=== PATIENT | female | born 1955 | race American Indian/Alaskan Native ===

== ENCOUNTER 2019-02-21 17:22 | Inpatient (IN) | payer OTHER ==
[2019-02-21] MEDS ORDERED: NACL 0.9% 1000 ML 1,000 ML ONE (17:51)
[2019-02-21] MEDS ORDERED: NACL 0.9% 1000 ML 1,000 ML IV ONE ×3 (17:56→19:45)
--- NOTE | 2019-02-21 18:02 | Emergency Department Report ---
ED General Adult HPI - General Chief complaint: Weakness Stated complaint: LOW SUGAR LEVEL/DISORIENTATED Time Seen by Provider: 02/21/19 17:46 Source: patient, family Mode of arrival: Wheelchair Limitations: Physical Limitation - History of Present Illness Initial comments: Mrs. Hansen is a 63 years old female [facility] Patient brought to the emergency room by her daughter. Patient is complaining of generalized weakness started this morning. Patient has history of diabetes, hypertension and back pain with bilateral lower extremity weakness, patient is wheelchair patient. Patient daughter stated that her mom is not eating or drinking well. She stated that she was taking Lortab for a long period of time and her primary care physician weaned off Lortab being 4 months ago. Patient daughter stated that last time she took Lortab was 2 weeks ago. Patient is drowsy but able to answer questions and follow command. Patient is moving all her extremities. Stroke scale was negative. Patient found to have a blood pressure of 84/32, heart rate 125. Sepsis protocol initiated immediately. Patient is given 2 L of normal saline and started on Zosyn. - Related Data Allergies Allergy/AdvReac Type Severity Reaction Status Date / Time Sulfa (Sulfonamide Allergy Unknown Verified 02/21/19 17:25 Antibiotics) ED Review of Systems ROS: Stated complaint: LOW SUGAR LEVEL/DISORIENTATED Other details as noted in HPI Comment: All other systems reviewed and negative Constitutional: denies: chills, fever Respiratory: denies: cough, orthopnea, shortness of breath, SOB with exertion, SOB at rest, wheezing Cardiovascular: denies: chest pain, palpitations Gastrointestinal: denies: abdominal pain, nausea, vomiting, diarrhea, constipation, hematemesis, melena, hematochezia Genitourinary: denies: urgency, dysuria, frequency, hematuria, discharge Musculoskeletal: denies: back pain Neurological: weakness (generalized). denies: headache, numbness, paresthesias, confusion, abnormal gait ED Physical Exam - General Limitations: Physical Limitation General appearance: obtunded - Head Head exam: Present: atraumatic, normocephalic, normal inspection - Eye Eye exam: Present: normal appearance - ENT ENT exam: Present: mucous membranes dry - Neck Neck exam: Present: normal inspection, full ROM. Absent: tenderness, meningismus, lymphadenopathy, thyromegaly - Respiratory Respiratory exam: Present: normal lung sounds bilaterally - Cardiovascular Cardiovascular Exam: Present: regular rate, tachycardia - GI/Abdominal GI/Abdominal exam: Present: soft, normal bowel sounds. Absent: distended, tenderness, guarding, rebound, rigid, organomegaly, mass, bruit, pulsatile mass - Extremities Exam Extremities exam: Present: normal inspection, full ROM, normal capillary refill. Absent: pedal edema, calf tenderness - Back Exam Back exam: Present: normal inspection, full ROM. Absent: CVA tenderness (R), CVA tenderness (L) - Neurological Exam Neurological exam: Present: alert, oriented X3, CN II-XII intact - Psychiatric Psychiatric exam: Present: normal mood - Skin Skin exam: Present: warm, intact, normal color ED Course Vital Signs 02/21/19 02/21/19 02/21/19 17:30 17:45 18:01 Temperature Pulse Rate 117 H 121 H Respiratory 22 14 Rate Blood Pressure 87/54 87/54 104/62 O2 Sat by Pulse 99 98 Oximetry 02/21/19 02/21/19 02/21/19 18:09 18:15 18:31 Temperature 98 F Pulse Rate 116 H 111 H 109 H Respiratory 16 12 11 L Rate Blood Pressure 104/62 87/54 87/54 O2 Sat by Pulse 100 98 93 Oximetry 02/21/19 02/21/19 02/21/19 18:45 19:05 19:15 Temperature Pulse Rate 101 H 96 H Respiratory 12 11 L 9 L Rate Blood Pressure 87/54 87/54 87/54 O2 Sat by Pulse 93 Oximetry 02/21/19 19:31 Temperature Pulse Rate Respiratory 13 Rate Blood Pressure 87/54 O2 Sat by Pulse 95 Oximetry ED Medical Decision Making - Lab Data Result diagrams: 02/21/19 18:02 02/21/19 18:02 - EKG Data -: EKG Interpreted by Ak EKG shows normal: sinus rhythm Rate: tachycardia - EKG Data Interpretation: no acute changes - Radiology Data Radiology results: report reviewed Chest x-ray is unremarkable. - Medical Decision Making Mrs. Hansen is a 63 years old female [facility] Patient brought to the emergency room by her daughter. Patient is complaining of generalized weakness started this morning. Patient has history of diabetes, hypertension and back pain with bilateral lower extremity weakness, patient is wheelchair patient. Patient daughter stated that her mom is not eating or drinking well. She stated that she was taking Lortab for a long period of time and her primary care phys keanu weaned off Lortab being 4 months ago. Patient daughter stated that last time she took Lortab was 2 weeks ago. Patient is drowsy but able to answer questions and follow command. Patient is moving all her extremities. Stroke scale was negative. Patient found to have a blood pressure of 84/32, heart rate 125. Sepsis protocol initiated immediately. Patient is given 2 L of normal saline and started on Zosyn. Labs reviewed that show lactic acid of 2.7. Creatinine of 3.4 and sodium of 1 25. Urine is positive for UTI. This x-ray is unremarkable. Patient received 3 L of normal saline. I discussed the patient is Dr. Wu, he agreed to admit the patient to medical service for further management. Critical Care Time: Yes Critical care time in (mins) excluding proc time.: 30 Critical care attestation.: If time is entered above; I have spent that time in minutes in the direct care of this critically ill patient, excluding procedure time. ED Disposition Clinical Impression: Sepsis, UTI (urinary tract infection), Hyponatremia, Acute renal failure Disposition: OP ADMIT IP TO THIS HOSP Is pt being admited?: Yes Condition: Stable Referrals: ASTON FAUSTIN MD [Primary Care Provider] - 3-5 Days
--- NOTE | 2019-02-21 18:34 | XRay Report ---
CHEST 1 VIEW INDICATION / CLINICAL INFORMATION: sepsis. COMPARISON: None available. FINDINGS: SUPPORT DEVICES: None. HEART / MEDIASTINUM: No significant abnormality. LUNGS / PLEURA: A few scattered linear opacities are present toward the lung bases. No pulmonary cons olidation. No appreciable pleural fluid. No pneumothorax. ADDITIONAL FINDINGS: No significant additional findings. IMPRESSION: 1. Scattered areas of platelike atelectasis likely related to low lung volumes. No parenchymal consol idation. Signer Name: Jerzy Bowden MD Signed: 02/21/2019 6:30 PM Workstation Name: [id number]
[2019-02-21 18:36] LABS: Hematocrit 30.6 % (30.3-42.9); Hemoglobin 10.6 gm/dl (10.1-14.3); Mean Corpuscular HGB Conc 35 % (30-34); Mean Corpuscular Volume 98 fl (79-97); Platelet Count 290 K/mm3 (140-440); Red Blood Count 3.12 M/mm3 (3.65-5.03)
[2019-02-21 18:55] LABS: Alanine Aminotransferase 28 units/L (7-56); Albumin 2.6 g/dL (3.9-5); BUN/Creatinine Ratio 14; Blood Urea Nitrogen 48 mg/dL (7-17); Calcium 8.1 mg/dL (8.4-10.2); Hemolysis Index 19
[2019-02-21] MEDS ORDERED: ZOSYN/NS 3.375GM/50ML 3.375 GM/50 ML BAG IV ONE (19:00)
[2019-02-21 19:25] LABS: Bacteria,Urine 4+ /HPF (Negative); Bilirubin,Urine NEG (Negative); Blood,Urine LG (Negative); Color,Urine Yellow (Yellow); Urobilinogen,Urine < 2.0 mg/dL (<2.0)
--- NOTE | 2019-02-21 19:28 | Cat Scan Report ---
CT head/brain wo con INDICATION: Altered mental status. TECHNIQUE: Routine CT head without contrast. All CT scans at this location are performed using CT dos e reduction for ALARA by means of automated exposure control. Multiplanar reformats are included. COMPARISON: None. FINDINGS: BRAIN / INTRACRANIAL CONTENTS: No acute hemorrhage, mass effect, midline shift, or hydrocephalus. No appreciable acute large territorial or lacunar infarct. There is atherosclerosis of the carotid sipho ns. ORBITS: No significant abnormality of visualized orbits. SINUSES / MASTOIDS: No significant abnormality of visualized sinuses and mastoid air cells. ADDITIONAL FINDINGS: None. IMPRESSION: 1. No acute intracranial abnormality. Signer Name: Jerzy Bowden MD Signed: 02/21/2019 7:24 PM Workstation Name: [id number]
[2019-02-21 19:34] LABS: Protein,Urine >500 mg/dL (Negative); WBC,Urine > 182.0 /HPF (0.0-6.0)
[2019-02-21 20:00] LABS: Band Neutrophils # (Manual) 1.8 K/mm3; Basophils % (Manual) 0 % (0.0-1.8); Total Cells Counted 100
[2019-02-21 20:01] LABS: Burr Cells 3+; Platelet Estimate Consistent w Auto
[2019-02-21] MEDS ORDERED: REGLAN IV PRN (20:15)
[2019-02-21] MEDS ORDERED: SODIUM CHLORIDE FLUSH SYRINGE 10 ML IV PRN (20:15)
[2019-02-21] MEDS ORDERED: D50W (25GM) Syringe IV PRN (20:15)
[2019-02-21] MEDS ORDERED: TYLENOL PO PRN (20:15)
[2019-02-21] MEDS ORDERED: PROVENTIL IH PRN (20:15)
[2019-02-21] MEDS ORDERED: ZOFRAN IV PRN (20:15)
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
[2019-02-21] MEDS: HEPARIN SUB-Q SCH (22:55)
[2019-02-21] MEDS: COLACE PO SCH (22:55)
[2019-02-21] MEDS: SODIUM CHLORIDE FLUSH SYRINGE 10 ML IV SCH (22:56)
[2019-02-21] MEDS: HumuLIN R SUB-Q SCH (22:56)
[2019-02-22 03:38] LABS: Hematocrit 29.7 % (30.3-42.9); Hemoglobin 10.4 gm/dl (10.1-14.3); Mean Corpuscular HGB Conc 35 % (30-34); Mean Corpuscular Volume 97 fl (79-97); Platelet Count 260 K/mm3 (140-440); Red Blood Count 3.06 M/mm3 (3.65-5.03)
[2019-02-22] MEDS: NACL 0.9% 1000 ML 1,000 ML IV SCH ×2 (03:40→14:58)
[2019-02-22 04:34] LABS: Calcium 7.3 mg/dL (8.4-10.2)
[2019-02-22 06:36] LABS: Band Neutrophils # (Manual) 0.2 K/mm3; Eosinophils % (Manual) 0 % (0.0-4.3); Total Cells Counted 100
[2019-02-22 06:37] LABS: Anisocytosis 1+; Burr Cells 3+; Platelet Estimate Consistent w Auto; Poikilocytosis 3+
--- NOTE | 2019-02-22 07:39 | Progress Note ---
Assessment and Plan Assessment and plan: Patient is a 63 yo woman with a history of DM type 2, hypertension, wheel bound due to chronic back pains and tobacco dependency who presents to [facility] with general weakness, poor intake. Pt has been taking Lortab for her chronic back pain for a long time and is currently being weaned. Per daughter pt's last dose of Lortab was taken two weeks ago. * pCXR Impression 1. Scattered areas of platelike atelectasis likely related to low volumes, no parenchymal consolidation * CT head without Impression 1. No acute intracranial abnormality Sepsis UTI: treat with abx, follow cultures Hyponatremia, hyposmolatity: treat with IVF, monitor bmp closely ARF, ATN+vasomotor nephrology: treat with IVF, Nephrology consult Bilateral atelectasis: treat incentive spirometry Severe malnutrition: consult Mop Maker Funtional quadriplegia: consult Physical Therapy Pressure ulcer, stage 2, poa: consult wound care DM type 2: ssi, ADA Tobacco dependency: counseled on cessation Hypertension: low salt History Interval history: Patient was seen and examined. Follow-up on current diagnosis. No overnight events reported to me. Patient denies any chest pain, shortness breath, nausea/vomiting or severe headaches. Imaging, nursing note, chart, labs and old chart reviewed. Discussed with patient. Hospitalist Physical - Physical exam Narrative exam: Gen: thin frail, chronically ill appearing, bmi 17.7 NAD, Awake, Alert, Orientated x 2 HEENT: NCAT, EOMI, PERRL, OP Clear Neck: supple, no adenopathy, no thyromegaly, no JVD CVS/Heart: RRR, normal S1S2, pulses present bilaterally Chest/Lungs: CTA B, Symmetrical chest expansion, good air entry bilaterally GI/Abdomen: soft, NTND, good bowel sounds, no guarding or rebound /Bladder: no suprapubic tenderness, no CVA or paraspinal tenderness Extermity/Skin: pressure ulcer, poa MSK: FROM x 4 Neuro: CN 2-12 grossly intact, no new focal deficits Psych: calm - Constitutional Vitals: Temp Pulse Resp BP Pulse Ox 98.0 F 101 H 20 120/72 99 02/22/19 05:04 02/22/19 05:04 02/22/19 05:04 02/22/19 05:04 02/22/19 05:04 Results - Labs CBC & Chem 7: 02/22/19 03:12 02/22/19 09:11 Labs: Laboratory Last Values WBC 8.7 K/mm3 (4.5-11.0) 02/22/19 03:12 RBC 3.06 M/mm3 (3.65-5.03) L 02/22/19 03:12 Hgb 10.4 gm/dl (10.1-14.3) 02/22/19 03:12 Hct 29.7 % (30.3-42.9) L 02/22/19 03:12 MCV 97 fl (79-97) 02/22/19 03:12 MCH 34 pg (28-32) H 02/22/19 03:12 MCHC 35 % (30-34) H 02/22/19 03:12 RDW 14.0 % (13.2-15.2) 02/22/19 03:12 Plt Count 260 K/mm3 (140-440) 02/22/19 03:12 Add Manual Diff Complete 02/22/19 03:12 Total Counted 100 02/22/19 03:12 Seg Neutrophils % Leather Piece Inspector 02/22/19 03:12 Seg Neuts % (Manual) 93.0 % (40.0-70.0) H 02/22/19 03:12 2.0 % 02/22/19 03:12 2.0 % (13.4-35.0) L 02/22/19 03:12 Reactive Lymphs % (Man) 0 % 02/22/19 03:12 2.0 % (0.0-7.3) 02/22/19 03:12 0 % (0.0-4.3) 02/22/19 03:12 1.0 % (0.0-1.8) 02/22/19 03:12 0 % 02/22/19 03:12 0 % 02/22/19 03:12 0 % 02/22/19 03:12 0 % 02/22/19 03:12 Nucleated RBC % Not Reportable 02/22/19 03:12 Seg Neutrophils # Man 8.1 K/mm3 (1.8-7.7) H 02/22/19 03:12 Band Neutrophils # 0.2 K/mm3 02/22/19 03:12 0.2 K/mm3 (1.2-5.4) L 02/22/19 03:12 Abs React Lymphs (Man) 0.0 K/mm3 02/22/19 03:12 0.2 K/mm3 (0.0-0.8) 02/22/19 03:12 0.0 K/mm3 (0.0-0.4) 02/22/19 03:12 0.1 K/mm3 (0.0-0.1) 02/22/19 03:12 0.0 K/mm3 02/22/19 03:12 0.0 K/mm3 02/22/19 03:12 0.0 K/mm3 02/22/19 03:12 Blast Cells # 0.0 K/mm3 02/22/19 03:12 WBC Morphology Not Reportable 02/22/19 03:12 Hypersegmented Neuts Not Reportable 02/22/19 03:12 Hyposegmented Neuts Not Reportable 02/22/19 03:12 Hypogranular Neuts Not Reportable 02/22/19 03:12 Not Reportable 02/22/19 03:12 Not Reportable 02/22/19 03:12 Not Reportable 02/22/19 03:12 Not Reportable 02/22/19 03:12 Not Reportable 02/22/19 03:12 Not Reportable 02/22/19 03:12 Consistent w auto 02/22/19 03:12 Not Reportable 02/22/19 03:12 Plt Clumps, EDTA Not Reportable 02/22/19 03:12 Not Reportable 02/22/19 03:12 Not Reportable 02/22/19 03:12 Not Reportable 02/22/19 03:12 Plt Morphology Comment Not Reportable 02/22/19 03:12 RBC Morphology Not Reportable 02/22/19 03:12 Dimorphic RBCs Not Reportable 02/22/19 03:12 Not Reportable 02/22/19 03:12 Not Reportable 02/22/19 03:12 3+ 02/22/19 03:12 1+ 02/22/19 03:12 Not Reportable 02/22/19 03:12 Not Reportable 02/22/19 03:12 Not Reportable 02/22/19 03:12 Not Reportable 02/22/19 03:12 Not Reportable 02/22/19 03:12 Not Reportable 02/22/19 03:12 Not Reportable 02/22/19 03:12 Not Reportable 02/22/19 03:12 Not Reportable 02/22/19 03:12 Not Reportable 02/22/19 03:12 Not Reportable 02/22/19 03:12 3+ 02/22/19 03:12 Not Reportable 02/22/19 03:12 Not Reportable 02/22/19 03:12 Not Reportable 02/22/19 03:12 Acanthocytes (Spur) Not Reportable 02/22/19 03:12 Rouleaux Not Reportable 02/22/19 03:12 Not Reportable 02/22/19 03:12 Not Reportable 02/22/19 03:12 Not Reportable 02/22/19 03:12 Not Reportable 02/22/19 03:12 Hem Pathologist Commnt No 02/22/19 03:12 Sodium 130 mmol/L (137-145) L 02/22/19 03:12 Potassium 4.1 mmol/L (3.6-5.0) 02/22/19 03:12 Chloride 98.0 mmol/L (98-107) 02/22/19 03:12 Carbon Dioxide 14 mmol/L (22-30) L 02/22/19 03:12 22 mmol/L 02/22/19 03:12 BUN 48 mg/dL (7-17) H 02/22/19 03:12 3.1 mg/dL (0.7-1.2) H 02/22/19 03:12 Estimated GFR 18 ml/min 02/22/19 03:12 15 % 02/22/19 03:12 Glucose 119 mg/dL (65-100) H 02/22/19 03:12 POC Glucose 103 (70-105) 02/21/19 22:58 5.4 % (4-6) 02/21/19 20:23 Lactic Acid 3.50 mmol/L (0.7-2.0) H* 02/21/19 19:45 Calcium 7.3 mg/dL (8.4-10.2) L 02/22/19 03:12 0.40 mg/dL (0.1-1.2) 02/21/19 18:02 AST 33 units/L (5-40) 02/21/19 18:02 ALT 28 units/L (7-56) 02/21/19 18:02 111 units/L (35-129) 02/21/19 18:02 < 0.010 ng/mL (0.00-0.029) 02/21/19 18:02 6.4 g/dL (6.3-8.2) 02/21/19 18:02 2.6 g/dL (3.9-5) L 02/21/19 18:02 0.7 % 02/21/19 18:02 Yellow (Yellow) 02/21/19 18:54 Turbid (Clear) 02/21/19 18:54 5.0 (5.0-7.0) 02/21/19 18:54 Ur Specific [place] 1.010 (1.003-1.030) 02/21/19 18:54 >500 mg/dL (Negative) 02/21/19 18:54 Neg mg/dL (Negative) 02/21/19 18:54 Neg mg/dL (Negative) 02/21/19 18:54 Lg (Negative) 02/21/19 18:54 Neg (Negative) 02/21/19 18:54 Neg (Negative) 02/21/19 18:54 < 2.0 mg/dL (<2.0) 02/21/19 18:54 Ur Leukocyte Esterase Mod (Negative) 02/21/19 18:54 > 182.0 /HPF (0.0-6.0) H 02/21/19 18:54 54.0 /HPF (0.0-6.0) 02/21/19 18:54 4+ /HPF (Negative) 02/21/19 18:54 3+ /HPF 02/21/19 18:54 3+ /HPF 02/21/19 18:54 Active Medications - Current Medications Current Medications: Generic Name Dose Route Start Last Admin Trade Name Freq PRN Reason Stop Dose Admin Acetaminophen 650 mg 02/21/19 20:15 Tylenol PO Q4H PRN Pain MILD(1-3)/Fever >100.5/AARON Albuterol 2.5 mg 02/21/19 20:15 Proventil IH Q3HRT PRN Shortness Of Breath Dextrose 50 ml 02/21/19 20:15 D50w (25gm) Syringe IV PRN PRN Hypoglycemia Docusate Sodium 100 mg 02/21/19 22:00 02/21/19 22:55 Colace PO 100 mg BID MATT Administration Heparin Sodium (Porcine) 5,000 unit 02/21/19 22:00 02/21/19 22:55 Heparin SUB-Q 5,000 unit Q12HR MATT Administration Sodium Chloride 1,000 mls @ 100 mls/hr 02/21/19 21:00 02/22/19 03:40 Nacl 0.9% 1000 Ml IV 100 mls/hr DIRECT MATT Administration Levofloxacin/Dextrose 500 mg in 100 mls @ 100 mls/hr 02/22/19 10:00 Levaquin 500mg/100ml IV Q24HR [facility] Protocol Insulin Human Regular 0 units 02/21/19 22:00 02/21/19 22:56 Humulin R SUB-Q Not Given ACHS MATT Protocol Metoclopramide HCl 10 mg 02/21/19 20:15 Reglan IV Q6H PRN Nausea And Vomiting Ondansetron HCl 4 mg 02/21/19 20:15 Zofran IV Q8H PRN Nausea And Vomiting Oxycodone/Acetaminophen 1 tab 02/21/19 20:15 Percocet 5/325 PO Q6H PRN Pain, Moderate (4-6) Sodium Chloride 10 ml 02/21/19 22:00 02/21/19 22:56 Sodium Chloride Flush Syringe 10 Ml IV 10 ml BID MATT Administration Sodium Chloride 10 ml 02/21/19 20:15 Sodium Chloride Flush Syringe 10 Ml IV PRN PRN LINE FLUSH
--- NOTE | 2019-02-22 08:46 | Consultation ---
History of Present Illness - Reason for Consult Consult date: 02/22/19 acute renal failure, hyponatremia - History of Present Illness the patient is a 63 year old female with HTN and DM, poor historian, history obtained from chart, she was brought by her daughter yesterday due to worsening weakness, she was found to have have urosepsis and was started on IVF and abx, she was also found to have KILLIAN and hyponatremia and renal consult was requested Past History Past Medical History: diabetes, hypertension, other (wheelchair-bound secondary to chronic back pain) Past Surgical History: No surgical history Social history: smoking (smokes 3-4 cigarettes per day) Family history: no significant family history Medications and Allergies Allergies Allergy/AdvReac Type Severity Reaction Status Date / Time Sulfa (Sulfonamide Allergy Unknown Verified 02/21/19 17:25 Antibiotics) Active Meds: Active Medications Acetaminophen (Tylenol) 650 mg PO Q4H PRN PRN Reason: Pain MILD(1-3)/Fever >100.5/AARON Albuterol (Proventil) 2.5 mg IH Q3HRT PRN PRN Reason: Shortness Of Breath Dextrose (D50w (25gm) Syringe) 50 ml IV PRN PRN PRN Reason: Hypoglycemia Docusate Sodium (Colace) 100 mg PO BID MATT Last Admin: 02/21/19 22:55 Dose: 100 mg Documented by: Heparin Sodium (Porcine) (Heparin) 5,000 unit SUB-Q Q12HR MATT Last Admin: 02/21/19 22:55 Dose: 5,000 unit Documented by: Sodium Chloride (Nacl 0.9% 1000 Ml) 1,000 mls @ 50 mls/hr IV DIRECT MATT Last Admin: 02/22/19 03:40 Dose: 100 mls/hr Documented by: Levofloxacin/Dextrose (Levaquin 500mg/100ml) 500 mg in 100 mls @ 100 mls/hr IV Q24HR MATT; Protocol Insulin Human Regular (Humulin R) 0 units SUB-Q ACHS MATT; Protocol Last Admin: 02/21/19 22:56 Dose: Not Given Documented by: Metoclopramide HCl (Reglan) 10 mg IV Q6H PRN PRN Reason: Nausea And Vomiting Ondansetron HCl (Zofran) 4 mg IV Q8H PRN PRN Reason: Nausea And Vomiting Oxycodone/Acetaminophen (Percocet 5/325) 1 tab PO Q6H PRN PRN Reason: Pain, Moderate (4-6) Sodium Chloride (Sodium Chloride Flush Syringe 10 Ml) 10 ml IV BID MATT Last Admin: 02/21/19 22:56 Dose: 10 ml Documented by: Sodium Chloride (Sodium Chloride Flush Syringe 10 Ml) 10 ml IV PRN PRN PRN Reason: LINE FLUSH Review of Systems ROS unobtainable: due to mental status Exam - Vital Signs Vital signs: Vital Signs BP 87/54 02/21/19 17:30 - General Appearance General appearance: well-developed, well-nourished EENT: ATNC, PERRL, mucous membranes moist Neck: Present: neck supple Respiratory: Clear to Ascultation Heart: regular, S1S2 Gastrointestinal: Present: normoactive bowel sounds Integumentary: no rash, warm and dry Neurologic: no asterixis Musculoskeletal: Present: other (no edema in BLE) Psychiatric: cooperative Results - Lab Results 02/22/19 03:12 02/22/19 03:12 Most recent lab results Calcium 7.3 mg/dL (8.4-10.2) L 02/22/19 03:12 Assessment and Plan acute kidney injury, likely prerenal azotemia hyponatremia, likely hypovolemic urosepsis HTN DM - will decrease NS to 50 cc/h to prevent overcorrection of hyponatremia - urine lytes, protein, osm, eos ordered - renal US ordered - strict I&O - daily weight - renally dose meds - avoid nephrotoxins Cade Palma MD [phone]
[2019-02-22] MEDS ORDERED: LEVAQUIN 500MG/100ML 500 MG/100 ML BAG IV SCH (10:00)
[2019-02-22] MEDS: HumuLIN R SUB-Q SCH ×2 (10:07→17:14)
[2019-02-22] MEDS: COLACE PO SCH ×2 (11:10→22:09)
[2019-02-22] MEDS: HEPARIN SUB-Q SCH ×2 (11:13→22:09)
[2019-02-22] MEDS: LEVAQUIN 500MG/100ML 500 MG/100 ML BAG IV SCH (11:19)
[2019-02-22] MEDS: SODIUM CHLORIDE FLUSH SYRINGE 10 ML IV SCH ×2 (11:29→22:10)
--- NOTE | 2019-02-22 12:30 | Ultrasound Report ---
ULTRASOUND RENAL INDICATION / CLINICAL INFORMATION: renal failure. COMPARISON: None available. FINDINGS: RIGHT KIDNEY: Length = 11.4 cm. [normal > 9 cm] - Parenchymal Thickness = 1.6 cm. [normal > 1.5 cm] - Echogenicity: Increased - Hydronephrosis: None. - Cyst or mass: No significant abnormality. - Stones: None seen. LEFT KIDNEY: Length = 11.3 cm. [normal > 9 cm] - Parenchymal Thickness = 1.6 cm. [normal > 1.5 cm] - Echogenicity: Increased - Hydronephrosis: None. - Cyst or mass: A 2.7 x 2.0 x 3.1 cm cyst with single internal septation is identified in the superio r left kidney. A 2.5 x 2.4 cm exophytic simple cyst is also identified in the superior left kidney. - Stones: None seen. URINARY BLADDER: There is moderate to large debris layering posteriorly in the bladder. Bladder wall thickness appears normal. FREE FLUID: None. ADDITIONAL FINDINGS: None. IMPRESSION: Echogenic kidneys consistent with nonspecific renal parenchymal disease. Left renal cysts as described. Moderate to large debris in the bladder. Correlate for cystitis. Signer Name: Marty Hernandez Jr, MD Signed: 02/22/2019 12:26 PM Workstation Name: [id number]
[2019-02-22] MEDS: MORPHINE IV PRN (14:53)
--- NOTE | 2019-02-22 15:39 | XRay Report ---
ABDOMEN 1 VIEW(S) INDICATION / CLINICAL INFORMATION: Nausea and vomiting. COMPARISON: None available. FINDINGS: TUBES / LINES: None. BOWEL GAS PATTERN: No significant abnormality. FREE AIR / EXTRALUMINAL GAS: None seen. ADDITIONAL FINDINGS: Posterior fusion of the lower lumbar spine is noted. IMPRESSION: No significant abnormality. Signer Name: Marty Hernandez Jr, MD Signed: 02/22/2019 3:34 PM Workstation Name: [id number]
[2019-02-23 05:17] LABS: Hematocrit 28.6 % (30.3-42.9); Hemoglobin 9.9 gm/dl (10.1-14.3); Mean Corpuscular HGB Conc 35 % (30-34); Mean Corpuscular Volume 97 fl (79-97); Platelet Count 226 K/mm3 (140-440); Red Blood Count 2.95 M/mm3 (3.65-5.03); Red Cell Distribution Width 14.4 % (13.2-15.2)
[2019-02-23 05:41] LABS: Creatinine,Urine 39.4 mg/dL (0.1-20.0)
[2019-02-23 05:48] LABS: Calcium 7.4 mg/dL (8.4-10.2)
[2019-02-23 06:19] LABS: Anisocytosis Few; Basophils % (Manual) 0 % (0.0-1.8); Eosinophils % (Manual) 0 % (0.0-4.3); Platelet Estimate Consistent w Auto; Total Cells Counted 100
[2019-02-23 08:50] LABS: Calcium 7.6 mg/dL (8.4-10.2)
[2019-02-23] MEDS: HEPARIN SUB-Q SCH ×2 (09:59→22:15)
[2019-02-23] MEDS: COLACE PO SCH ×2 (09:59→21:58)
[2019-02-23] MEDS: SODIUM CHLORIDE FLUSH SYRINGE 10 ML IV SCH ×2 (09:59→21:58)
--- NOTE | 2019-02-23 11:41 | Progress Note ---
Assessment and Plan Acute kidney injury, likely prerenal azotemia Hyponatremia, likely hypovolemic Urosepsis Hypertension Diabetes Mellitus - Renal function reviewed. Serum creatinine 3.3 today, yesterday's was 3.1 and prior was 3.3 - Urine lytes reviewed- Urine osmo-338, Urine creatinine-39.4, Urine sodium-93 and urine eosinophils- none seen - Urine protein>500. Ordered protein/creatinine ratio. - Ordered GN work-up. - Ordered 24 hour urine collection for creatinine clearance - Renal US showed- Echogenic kidneys due to renal parenchymal disease. Left renal cysts. - On NS at 50 ml/hr - Sodium level today is 135, yesterday's was 134 - Strict I&O. No accurate I/O's being recorded - Obtain daily weights - Renally dose medications - Avoid nephrotoxic agents - Continue to monitor renal function closely - Plan of care reviewed with Dr. Palma Subjective Date of service: 02/23/19 Principal diagnosis: ARF Interval history: Patient seen lying in bed. Reviewed renal plan of care. Objective - Vital Signs Vital signs: Vital Signs - 12hr 02/23/19 02/23/19 02/23/19 04:37 04:39 08:09 Temperature 98.4 F 98.5 F Pulse Rate 98 H 95 H Respiratory 20 12 Rate Blood Pressure 129/71 121/59 O2 Sat by Pulse 100 96 Oximetry - General Appearance General appearance: well-developed, fatigue EENT: ATNC, PERRL, hearing intact, vision intact Neck: no JVD, supple Respiratory: Present: Decreased Breath Sounds Cardiology: S1S2 Gastrointestinal: normoactive bowel sounds Integumentary: warm and dry Neurologic: alert and oriented x3 Musculoskeletal: other (No edema) Psychiatric: mood/affect appropriate - Lab 02/23/19 03:41 02/23/19 08:08 Most recent lab results Calcium 7.6 mg/dL (8.4-10.2) L 02/23/19 08:08 39.4 mg/dL (0.1-20.0) H 02/23/19 05:00 93 mmol/L 02/23/19 05:00 Medications & Allergies - Medications Allergies/Adverse Reactions: Allergies Sulfa (Sulfonamide Antibiotics) Allergy (Verified 02/21/19 17:25) Unknown Active Medications: Generic Name Dose Route Start Last Admin Trade Name Freq PRN Reason Stop Dose Admin Acetaminophen 650 mg 02/21/19 20:15 02/22/19 13:15 Tylenol PO 650 mg Q4H PRN Administration Pain MILD(1-3)/Fever >100.5/AARON Albuterol 2.5 mg 02/21/19 20:15 Proventil IH Q3HRT PRN Shortness Of Breath Docusate Sodium 100 mg 02/21/19 22:00 02/23/19 09:59 Colace PO Not Given BID MATT Heparin Sodium (Porcine) 5,000 unit 02/21/19 22:00 02/23/19 09:59 Heparin SUB-Q 5,000 unit Q12HR MATT Administration Sodium Chloride 1,000 mls @ 50 mls/hr 02/21/19 21:00 02/22/19 14:58 Nacl 0.9% 1000 Ml IV 50 mls/hr DIRECT MATT Administration Levofloxacin/Dextrose 500 mg in 100 mls @ 100 mls/hr 02/22/19 12:00 02/22/19 11:19 Levaquin 500mg/100ml IV 100 mls/hr Q48HR MATT Administration Protocol Metoclopramide HCl 10 mg 02/21/19 20:15 Reglan IV Q6H PRN Nausea And Vomiting Morphine Sulfate 1 mg 02/22/19 14:31 02/22/19 14:53 Morphine IV 1 mg Q4H PRN Administration Pain , Severe (7-10) Ondansetron HCl 4 mg 02/21/19 20:15 02/22/19 14:53 Zofran IV 4 mg Q8H PRN Administration Nausea And Vomiting Oxycodone/Acetaminophen 1 tab 02/21/19 20:15 Percocet 5/325 PO Q6H PRN Pain, Moderate (4-6) Sodium Chloride 10 ml 02/21/19 22:00 02/23/19 09:59 Sodium Chloride Flush Syringe 10 Ml IV 10 ml BID MATT Administration Sodium Chloride 10 ml 02/21/19 20:15 Sodium Chloride Flush Syringe 10 Ml IV PRN PRN LINE FLUSH
[2019-02-23] MEDS: MORPHINE IV PRN ×2 (12:40→22:07)
[2019-02-23 14:11] LABS: Hepatitis B Surface Antigen Non-Reactive (Negative); Hepatitis C Virus Antibody Non-Reactive (NonReactive)
--- NOTE | 2019-02-23 14:46 | Ultrasound Report ---
ULTRASOUND PELVIC COMPLETE HISTORY: Vaginal bleeding TECHNIQUE: Transabdominal ultrasound with color Doppler imaging. FINDINGS: The uterus is anteverted. The uterus measures 7.4 x 2.5 x 3.6 cm. A small intramural uterine fibroid measuring 1.3 x 0.9 x 1.3 cm is noted in the lower posterior wall. No large submucosal fibroid. The endometrium measures 5.4 mm in thickness. The right ovary measures 2.6 x 0.9 x 1.8 cm. The left ovary measures 2.1 x 1.1 x 1.7 cm. No ovarian m ass or cyst. No pelvic fluid collection. There appears to be moderate layering debris in the bladder. The bladder wall is normal thickness. IMPRESSION: Small uterine fibroid. Debris in the bladder which could represent cystitis or blood products. Signer Name: Marty Hernandez Jr, MD Signed: 02/23/2019 2:41 PM Workstation Name: [id number]
[2019-02-23 17:01] LABS: Bacteria,Urine 3+ /HPF (Negative); Bilirubin,Urine NEG (Negative); Blood,Urine LG (Negative); Color,Urine Yellow (Yellow); Mucus,Urine FEW /HPF; Urobilinogen,Urine < 2.0 mg/dL (<2.0)
[2019-02-23 17:04] LABS: Creatinine,Urine 36.2 mg/dL (0.1-20.0); Protein/Creatinine Ratio,Urine 5.19
[2019-02-23 17:13] LABS: RBC,Urine > 182.0 /HPF (0.0-6.0); WBC,Urine > 182.0 /HPF (0.0-6.0)
[2019-02-23] MEDS: NACL 0.9% 1000 ML 1,000 ML IV SCH (17:18)
[2019-02-24 05:28] LABS: Calcium 7.4 mg/dL (8.4-10.2)
[2019-02-24 05:48] LABS: Red Blood Count 2.58 M/mm3 (3.65-5.03)
[2019-02-24 05:49] LABS: Hematocrit 24.5 % (30.3-42.9); Hemoglobin 8.7 gm/dl (10.1-14.3); Mean Corpuscular HGB Conc 36 % (30-34); Mean Corpuscular Volume 95 fl (79-97); Mean Platelet Volume 7.2 fl (6-12); Platelet Count 206 K/mm3 (140-440); Red Cell Distribution Width 14.6 % (13.2-15.2)
[2019-02-24 08:00] LABS: Anisocytosis 1+; Basophils % (Manual) 0 % (0.0-1.8); Eosinophils % (Manual) 0 % (0.0-4.3); Platelet Estimate Consistent w Auto; Poikilocytosis 1+; Total Cells Counted 100
[2019-02-24] MEDS: HEPARIN SUB-Q SCH ×2 (10:00→22:11)
[2019-02-24] MEDS: PERCOCET 5/325 PO PRN (10:34)
[2019-02-24] MEDS: COLACE PO SCH ×2 (10:34→22:10)
[2019-02-24] MEDS: LEVAQUIN 500MG/100ML 500 MG/100 ML BAG IV SCH (10:35)
[2019-02-24] MEDS: SODIUM CHLORIDE FLUSH SYRINGE 10 ML IV SCH ×2 (10:35→22:11)
--- NOTE | 2019-02-24 10:44 | Progress Note ---
Assessment and Plan Assessment and plan: Patient is a 63 yo woman with a history of DM type 2, hypertension, wheel bound due to chronic back pains and tobacco dependency who presents to [facility] with general weakness, poor intake. Pt has been taking Lortab for her chronic back pain for a long time and is currently being weaned. Per daughter pt's last dose of Lortab was taken two weeks ago. * pCXR Impression 1. Scattered areas of platelike atelectasis likely related to low volumes, no parenchymal consolidation * CT head without Impression 1. 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 Funtional quadriplegia: consult Physical Therapy Sacral decubitus ulcer stage 3 , poa; cont wound care DM type 2: ssi, ADA Tobacco dependency: counseled on cessation Hypertension: low salt History Interval history: was called by RN about hematuria, blood in diaper, patient is incontinent no fevers sacral pain is well controlled Hospitalist Physical - Constitutional Vitals: Temp Pulse Resp BP Pulse Ox 98.5 F 83 18 141/69 97 02/24/19 08:09 02/24/19 08:09 02/24/19 08:09 02/24/19 08:09 02/24/19 08:09 General appearance: Present: no acute distress - EENT Eyes: Present: PERRL ENT: hearing intact - Neck Neck: Present: supple - Respiratory Respiratory effort: normal Respiratory: bilateral: CTA - Cardiovascular Rhythm: regular Heart Sounds: Present: S1 & S2 - Extremities Extremities: no ischemia Extremity abnormal: edema - Abdominal General gastrointestinal: soft, non-tender - Integumentary Integumentary: Present: clear, warm, dry (stage 3 sacral decub) - Psychiatric Psychiatric: cooperative (confused at baseline) - Neurologic Neurologic: CNII-XII intact Results - Labs CBC & Chem 7: 02/25/19 04:51 02/25/19 04:51 Labs: Laboratory Last Values WBC 8.9 K/mm3 (4.5-11.0) 02/24/19 04:43 RBC 2.58 M/mm3 (3.65-5.03) L 02/24/19 04:43 Hgb 8.7 gm/dl (10.1-14.3) L 02/24/19 04:43 Hct 24.5 % (30.3-42.9) L 02/24/19 04:43 MCV 95 fl (79-97) 02/24/19 04:43 MCH 34 pg (28-32) H 02/24/19 04:43 MCHC 36 % (30-34) H 02/24/19 04:43 RDW 14.6 % (13.2-15.2) 02/24/19 04:43 Plt Count 206 K/mm3 (140-440) 02/24/19 04:43 Add Manual Diff Complete 02/24/19 04:43 Total Counted 100 02/24/19 04:43 Seg Neutrophils % Contact Lens Blocker 02/23/19 03:41 Seg Neuts % (Manual) 88.0 % (40.0-70.0) H 02/24/19 04:43 0 % 02/24/19 04:43 11.0 % (13.4-35.0) L 02/24/19 04:43 Reactive Lymphs % (Man) 0 % 02/24/19 04:43 1.0 % (0.0-7.3) 02/24/19 04:43 0 % (0.0-4.3) 02/24/19 04:43 0 % (0.0-1.8) 02/24/19 04:43 0 % 02/24/19 04:43 0 % 02/24/19 04:43 0 % 02/24/19 04:43 0 % 02/24/19 04:43 Nucleated RBC % Not Reportable 02/24/19 04:43 Seg Neutrophils # Man 7.8 K/mm3 (1.8-7.7) H 02/24/19 04:43 Band Neutrophils # 0.0 K/mm3 02/24/19 04:43 1.0 K/mm3 (1.2-5.4) L 02/24/19 04:43 Abs React Lymphs (Man) 0.0 K/mm3 02/24/19 04:43 0.1 K/mm3 (0.0-0.8) 02/24/19 04:43 0.0 K/mm3 (0.0-0.4) 02/24/19 04:43 0.0 K/mm3 (0.0-0.1) 02/24/19 04:43 0.0 K/mm3 02/24/19 04:43 0.0 K/mm3 02/24/19 04:43 0.0 K/mm3 02/24/19 04:43 Blast Cells # 0.0 K/mm3 02/24/19 04:43 WBC Morphology Not Reportable 02/24/19 04:43 Hypersegmented Neuts Not Reportable 02/24/19 04:43 Hyposegmented Neuts Not Reportable 02/24/19 04:43 Hypogranular Neuts Not Reportable 02/24/19 04:43 Not Reportable 02/24/19 04:43 Not Reportable 02/24/19 04:43 Not Reportable 02/24/19 04:43 Not Reportable 02/24/19 04:43 Not Reportable 02/24/19 04:43 Not Reportable 02/24/19 04:43 Consistent w auto 02/24/19 04:43 Not Reportable 02/24/19 04:43 Plt Clumps, EDTA Not Reportable 02/24/19 04:43 Not Reportable 02/24/19 04:43 Not Reportable 02/24/19 04:43 Not Reportable 02/24/19 04:43 Plt Morphology Comment Not Reportable 02/24/19 04:43 RBC Morphology Not Reportable 02/24/19 04:43 Dimorphic RBCs Not Reportable 02/24/19 04:43 Not Reportable 02/24/19 04:43 Not Reportable 02/24/19 04:43 1+ 02/24/19 04:43 1+ 02/24/19 04:43 Not Reportable 02/24/19 04:43 Not Reportable 02/24/19 04:43 Not Reportable 02/24/19 04:43 Not Reportable 02/24/19 04:43 Not Reportable 02/24/19 04:43 Not Reportable 02/24/19 04:43 Not Reportable 02/24/19 04:43 Not Reportable 02/24/19 04:43 Not Reportable 02/24/19 04:43 Not Reportable 02/24/19 04:43 Not Reportable 02/24/19 04:43 Not Reportable 02/24/19 04:43 Not Reportable 02/24/19 04:43 Not Reportable 02/24/19 04:43 Not Reportable 02/24/19 04:43 Acanthocytes (Spur) Not Reportable 02/24/19 04:43 Rouleaux Not Reportable 02/24/19 04:43 Not Reportable 02/24/19 04:43 Not Reportable 02/24/19 04:43 Not Reportable 02/24/19 04:43 Not Reportable 02/24/19 04:43 Hem Pathologist Commnt No 02/24/19 04:43 Sodium 139 mmol/L (137-145) 02/24/19 08:42 Potassium 3.5 mmol/L (3.6-5.0) L 02/24/19 04:43 Chloride 106.8 mmol/L (98-107) 02/24/19 04:43 Carbon Dioxide 13 mmol/L (22-30) L 02/24/19 04:43 21 mmol/L 02/24/19 04:43 BUN 66 mg/dL (7-17) H 02/24/19 04:43 3.2 mg/dL (0.7-1.2) H 02/24/19 04:43 Estimated GFR 18 ml/min 02/24/19 04:43 21 % 02/24/19 04:43 Glucose 84 mg/dL (65-100) 02/24/19 04:43 POC Glucose 76 (70-105) 02/24/19 07:37 5.4 % (4-6) 02/21/19 20:23 284 Mosm/kg 02/22/19 09:11 Lactic Acid 1.10 mmol/L (0.7-2.0) 02/22/19 06:57 Calcium 7.4 mg/dL (8.4-10.2) L 02/24/19 04:43 Phosphorus 3.60 mg/dL (2.5-4.5) 02/24/19 03:37 0.40 mg/dL (0.1-1.2) 02/21/19 18:02 AST 33 units/L (5-40) 02/21/19 18:02 ALT 28 units/L (7-56) 02/21/19 18:02 111 units/L (35-129) 02/21/19 18:02 < 0.010 ng/mL (0.00-0.029) 02/21/19 18:02 6.4 g/dL (6.3-8.2) 02/21/19 18:02 2.6 g/dL (3.9-5) L 02/21/19 18:02 0.7 % 02/21/19 18:02 Yellow (Yellow) 02/23/19 16:30 Turbid (Clear) 02/23/19 16:30 6.0 (5.0-7.0) 02/23/19 16:30 Ur Specific [place] 1.010 (1.003-1.030) 02/23/19 16:30 100 mg/dl mg/dL (Negative) 02/23/19 16:30 50 mg/dL (Negative) 02/23/19 16:30 Tr mg/dL (Negative) 02/23/19 16:30 Lg (Negative) 02/23/19 16:30 Neg (Negative) 02/23/19 16:30 Neg (Negative) 02/23/19 16:30 < 2.0 mg/dL (<2.0) 02/23/19 16:30 Ur Leukocyte Esterase Lg (Negative) 02/23/19 16:30 > 182.0 /HPF (0.0-6.0) H 02/23/19 16:30 > 182.0 /HPF (0.0-6.0) 02/23/19 16:30 3+ /HPF (Negative) 02/23/19 16:30 3+ /HPF 02/21/19 18:54 Few /HPF 02/23/19 16:30 3+ /HPF 02/21/19 18:54 None seen (None Seen) 02/23/19 05:00 338 Mosm/kg 02/23/19 05:00 36.2 mg/dL (0.1-20.0) H 02/23/19 16:30 Protein/Creatinin Ratio 5.19 02/23/19 16:30 93 mmol/L 02/23/19 05:00 188 mg/dL (5-11.8) H 02/23/19 16:30 Hepatitis A IgM Ab Non-reactive (NonReactive) 02/23/19 13:04 Hep Bs Antigen Non-reactive (Negative) 02/23/19 13:04 Hep B Core IgM Ab Non-reactive (NonReactive) 02/23/19 13:04 Non-reactive (NonReactive) 02/23/19 13:04 HIV 1&2 Antibody Rapid Non react (Non React) 02/23/19 13:04 Non react (Non React) 02/23/19 13:04 Active Medications - Current Medications Current Medications: Generic Name Dose Route Start Last Admin Trade Name Freq PRN Reason Stop Dose Admin Acetaminophen 650 mg 02/21/19 20:15 02/22/19 13:15 Tylenol PO 650 mg Q4H PRN Administration Pain MILD(1-3)/Fever >100.5/AARON Albuterol 2.5 mg 02/21/19 20:15 Proventil IH Q3HRT PRN Shortness Of Breath Docusate Sodium 100 mg 02/21/19 22:00 02/24/19 10:34 Colace PO 100 mg BID MATT Administration Heparin Sodium (Porcine) 5,000 unit 02/21/19 22:00 02/23/19 22:15 Heparin SUB-Q Not Given Q12HR MATT Sodium Chloride 1,000 mls @ 50 mls/hr 02/21/19 21:00 02/23/19 17:18 Nacl 0.9% 1000 Ml IV 50 mls/hr DIRECT MATT Administration Ceftriaxone Sodium 1 gm in 50 mls @ 100 mls/hr 02/24/19 11:00 Rocephin/Ns 1 Gm/50 Ml IV Q24HR [facility] Protocol Metoclopramide HCl 10 mg 02/21/19 20:15 Reglan IV Q6H PRN Nausea And Vomiting Morphine Sulfate 1 mg 02/22/19 14:31 02/23/19 22:07 Morphine IV 1 mg Q4H PRN Administration Pain , Severe (7-10) Ondansetron HCl 4 mg 02/21/19 20:15 02/22/19 14:53 Zofran IV 4 mg Q8H PRN Administration Nausea And Vomiting Oxycodone/Acetaminophen 1 tab 02/21/19 20:15 02/24/19 10:34 Percocet 5/325 PO 1 tab Q6H PRN Administration Pain, Moderate (4-6) Sodium Chloride 10 ml 02/21/19 22:00 02/24/19 10:35 Sodium Chloride Flush Syringe 10 Ml IV 10 ml BID MTAT Administration Sodium Chloride 10 ml 02/21/19 20:15 Sodium Chloride Flush Syringe 10 Ml IV PRN PRN LINE FLUSH Nutrition/Malnutrition Assess - Dietary Evaluation Nutrition/Malnutrition Findings: Nutrition Notes Start: 02/22/19 12:09 Freq: Status: Active Protocol: Document 02/22/19 12:09 OH (Rec: 02/22/19 12:23 OH [id number]) Nutrition Notes Need for Assessment generated from: MD Order Initial or Follow up Assessment Current Diagnosis Acute Kidney Injury,Diabetes, Sepsis Other Pertinent Diagnosis chronic pain; Current Diet cardiac/Consistent CHO Labs/Tests hgba1c 5.4 Height 5 ft 5 in Weight 48.2 kg [place] Body Weight (kg) 56.81 BMI 17.6 Intake Prior to Admission Poor Weight change and time frame Weight change noted from 02/21 to 02/22. Wt to be monitored daily per MD. Weight Status Underweight Subjective/Other Information Malnutrition MD referral. Pt. noted to be lying in bed with daughter at bedside. Per daughter she had recently been informed pt has renal failure . Daughter indicates pt does have broken teeth. 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 Per nursing notes pt has small dime size open wound on buttocks. At home pt uses w/c secondary to back pain/poor mobility. At this time MD not recommending dialysis. Burn Absent Trauma Absent GI Symptoms None Food Allergy No Usual Diet at Home Regular Current % PO Fair (50-74%) Muscle Mass Mild Depletion (non-severe) Protein-Calorie Malnutrition Severe #1 Nutrition Diagnosis Inadequate oral intake Etiology Poor appetite/<75% meal tray consumed As Evidenced by Signs and Symptoms low BMI Diagnosis Progress(for reassessment Continues documentation) Is patient on ventilator? No Is Patient Ambulatory and/or Out of Bed No REE-([facility]-confined to bed) 1256.820 Kcal/Kg value to use for calculation 35 Approximate Energy Requirements Using 1687 kcal/Kg Calculation Used for Recommendations Kcal/kg Additional Notes FLUID: 1 mL/kcal PRO: 0.8-1.2 G/KG/BW 44-67 G /DAY Nutrition Intervention Change Diet Order: Cont Consistent CHO/CARDIAC soft Add Supplement/Snack (indicate name/kcal nepro q day /protein ) Provides kCal: 425 Provides Protein (gm) 19 Teaching Recipient Patient,Family Learning Readiness Good Teaching Methods Discussion Response to Teaching Verbalize understanding Education Handouts Provided Spoke with daughter about CKD and importance of being educated regarding plan of care if CKD stage increases. Recommended pt/family [facility] for [facility] education and opportunities to manage CKD. Barriers to Learning Cognitive/Verbal,Motivation, Emotional,Environmental Goal #1 Po intake to exceed >75% meal tray Anticipated Discharge Needs: CKD education/referral Follow-Up By: 02/24/19 Additional Comments Monitor po intake/ONS tolerance
--- NOTE | 2019-02-24 11:52 | Progress Note ---
Assessment and Plan Assessment and plan: Patient is a 63 yo woman with a history of DM type 2, hypertension, wheel bound due to chronic back pains and tobacco dependency who presents to [facility] with general weakness, poor intake. Pt has been taking Lortab for her chronic back pain for a long time and is currently being weaned. Per daughter pt's last dose of Lortab was taken two weeks ago. * pCXR Impression 1. Scattered areas of platelike atelectasis likely related to low volumes, no parenchymal consolidation * CT head without Impression 1. 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 Funtional quadriplegia: cont Physical Therapy Sacral decubitus ulcer stage 3 , poa; cont wound care DM type 2: ssi, ADA Tobacco dependency: counseled on cessation Hypertension: low salt History Interval history: no cp, no sob, no cough no fevers sacral pain is well controlled Hospitalist Physical - Physical exam Narrative exam: General appearance: Present: no acute distress - EENT Eyes: Present: PERRL ENT: hearing intact - Neck Neck: Present: supple - Respiratory Respiratory effort: normal Respiratory: bilateral: CTA - Cardiovascular Rhythm: regular Heart Sounds: Present: S1 & S2 - Extremities Extremities: no ischemia Extremity abnormal: edema - Abdominal General gastrointestinal: soft, non-tender - Integumentary Integumentary: Present: clear, warm, dry (stage 3 sacral decub) - Psychiatric Psychiatric: cooperative (confused at baseline) - Neurologic Neurologic: CNII-XII intact - Constitutional Vitals: Temp Pulse Resp BP Pulse Ox 98.5 F 83 18 141/69 97 02/24/19 08:09 02/24/19 08:09 02/24/19 08:09 02/24/19 08:09 02/24/19 08:09 Results - Labs CBC & Chem 7: 02/25/19 04:51 02/25/19 04:51 Labs: Laboratory Last Values WBC 8.9 K/mm3 (4.5-11.0) 02/24/19 04:43 RBC 2.58 M/mm3 (3.65-5.03) L 02/24/19 04:43 Hgb 8.7 gm/dl (10.1-14.3) L 02/24/19 04:43 Hct 24.5 % (30.3-42.9) L 02/24/19 04:43 MCV 95 fl (79-97) 02/24/19 04:43 MCH 34 pg (28-32) H 02/24/19 04:43 MCHC 36 % (30-34) H 02/24/19 04:43 RDW 14.6 % (13.2-15.2) 02/24/19 04:43 Plt Count 206 K/mm3 (140-440) 02/24/19 04:43 Add Manual Diff Complete 02/24/19 04:43 Total Counted 100 02/24/19 04:43 Seg Neutrophils % Dental Services Director 02/23/19 03:41 Seg Neuts % (Manual) 88.0 % (40.0-70.0) H 02/24/19 04:43 0 % 02/24/19 04:43 11.0 % (13.4-35.0) L 02/24/19 04:43 Reactive Lymphs % (Man) 0 % 02/24/19 04:43 1.0 % (0.0-7.3) 02/24/19 04:43 0 % (0.0-4.3) 02/24/19 04:43 0 % (0.0-1.8) 02/24/19 04:43 0 % 02/24/19 04:43 0 % 02/24/19 04:43 0 % 02/24/19 04:43 0 % 02/24/19 04:43 Nucleated RBC % Not Reportable 02/24/19 04:43 Seg Neutrophils # Man 7.8 K/mm3 (1.8-7.7) H 02/24/19 04:43 Band Neutrophils # 0.0 K/mm3 02/24/19 04:43 1.0 K/mm3 (1.2-5.4) L 02/24/19 04:43 Abs React Lymphs (Man) 0.0 K/mm3 02/24/19 04:43 0.1 K/mm3 (0.0-0.8) 02/24/19 04:43 0.0 K/mm3 (0.0-0.4) 02/24/19 04:43 0.0 K/mm3 (0.0-0.1) 02/24/19 04:43 0.0 K/mm3 02/24/19 04:43 0.0 K/mm3 02/24/19 04:43 0.0 K/mm3 02/24/19 04:43 Blast Cells # 0.0 K/mm3 02/24/19 04:43 WBC Morphology Not Reportable 02/24/19 04:43 Hypersegmented Neuts Not Reportable 02/24/19 04:43 Hyposegmented Neuts Not Reportable 02/24/19 04:43 Hypogranular Neuts Not Reportable 02/24/19 04:43 Not Reportable 02/24/19 04:43 Not Reportable 02/24/19 04:43 Not Reportable 02/24/19 04:43 Not Reportable 02/24/19 04:43 Not Reportable 02/24/19 04:43 Not Reportable 02/24/19 04:43 Consistent w auto 02/24/19 04:43 Not Reportable 02/24/19 04:43 Plt Clumps, EDTA Not Reportable 02/24/19 04:43 Not Reportable 02/24/19 04:43 Not Reportable 02/24/19 04:43 Not Reportable 02/24/19 04:43 Plt Morphology Comment Not Reportable 02/24/19 04:43 RBC Morphology Not Reportable 02/24/19 04:43 Dimorphic RBCs Not Reportable 02/24/19 04:43 Not Reportable 02/24/19 04:43 Not Reportable 02/24/19 04:43 1+ 02/24/19 04:43 1+ 02/24/19 04:43 Not Reportable 02/24/19 04:43 Not Reportable 02/24/19 04:43 Not Reportable 02/24/19 04:43 Not Reportable 02/24/19 04:43 Not Reportable 02/24/19 04:43 Not Reportable 02/24/19 04:43 Not Reportable 02/24/19 04:43 Not Reportable 02/24/19 04:43 Not Reportable 02/24/19 04:43 Not Reportable 02/24/19 04:43 Not Reportable 02/24/19 04:43 Not Reportable 02/24/19 04:43 Not Reportable 02/24/19 04:43 Not Reportable 02/24/19 04:43 Not Reportable 02/24/19 04:43 Acanthocytes (Spur) Not Reportable 02/24/19 04:43 Rouleaux Not Reportable 02/24/19 04:43 Not Reportable 02/24/19 04:43 Not Reportable 02/24/19 04:43 Not Reportable 02/24/19 04:43 Not Reportable 02/24/19 04:43 Hem Pathologist Commnt No 02/24/19 04:43 Sodium 139 mmol/L (137-145) 02/24/19 08:42 Potassium 3.5 mmol/L (3.6-5.0) L 02/24/19 04:43 Chloride 106.8 mmol/L (98-107) 02/24/19 04:43 Carbon Dioxide 13 mmol/L (22-30) L 02/24/19 04:43 21 mmol/L 02/24/19 04:43 BUN 66 mg/dL (7-17) H 02/24/19 04:43 3.2 mg/dL (0.7-1.2) H 02/24/19 04:43 Estimated GFR 18 ml/min 02/24/19 04:43 21 % 02/24/19 04:43 Glucose 84 mg/dL (65-100) 02/24/19 04:43 POC Glucose 76 (70-105) 02/24/19 07:37 5.4 % (4-6) 02/21/19 20:23 284 Mosm/kg 02/22/19 09:11 Lactic Acid 1.10 mmol/L (0.7-2.0) 02/22/19 06:57 Calcium 7.4 mg/dL (8.4-10.2) L 02/24/19 04:43 Phosphorus 3.60 mg/dL (2.5-4.5) 02/24/19 03:37 0.40 mg/dL (0.1-1.2) 02/21/19 18:02 AST 33 units/L (5-40) 02/21/19 18:02 ALT 28 units/L (7-56) 02/21/19 18:02 111 units/L (35-129) 02/21/19 18:02 < 0.010 ng/mL (0.00-0.029) 02/21/19 18:02 6.4 g/dL (6.3-8.2) 02/21/19 18:02 2.6 g/dL (3.9-5) L 02/21/19 18:02 0.7 % 02/21/19 18:02 Yellow (Yellow) 02/23/19 16:30 Turbid (Clear) 02/23/19 16:30 6.0 (5.0-7.0) 02/23/19 16:30 Ur Specific [place] 1.010 (1.003-1.030) 02/23/19 16:30 100 mg/dl mg/dL (Negative) 02/23/19 16:30 50 mg/dL (Negative) 02/23/19 16:30 Tr mg/dL (Negative) 02/23/19 16:30 Lg (Negative) 02/23/19 16:30 Neg (Negative) 02/23/19 16:30 Neg (Negative) 02/23/19 16:30 < 2.0 mg/dL (<2.0) 02/23/19 16:30 Ur Leukocyte Esterase Lg (Negative) 02/23/19 16:30 > 182.0 /HPF (0.0-6.0) H 02/23/19 16:30 > 182.0 /HPF (0.0-6.0) 02/23/19 16:30 3+ /HPF (Negative) 02/23/19 16:30 3+ /HPF 02/21/19 18:54 Few /HPF 02/23/19 16:30 3+ /HPF 02/21/19 18:54 None seen (None Seen) 02/23/19 05:00 338 Mosm/kg 02/23/19 05:00 36.2 mg/dL (0.1-20.0) H 02/23/19 16:30 Protein/Creatinin Ratio 5.19 02/23/19 16:30 93 mmol/L 02/23/19 05:00 188 mg/dL (5-11.8) H 02/23/19 16:30 Hepatitis A IgM Ab Non-reactive (NonReactive) 02/23/19 13:04 Hep Bs Antigen Non-reactive (Negative) 02/23/19 13:04 Hep B Core IgM Ab Non-reactive (NonReactive) 02/23/19 13:04 Non-reactive (NonReactive) 02/23/19 13:04 HIV 1&2 Antibody Rapid Non react (Non React) 02/23/19 13:04 Non react (Non React) 02/23/19 13:04 Active Medications - Current Medications Current Medications: Generic Name Dose Route Start Last Admin Trade Name Freq PRN Reason Stop Dose Admin Acetaminophen 650 mg 02/21/19 20:15 02/22/19 13:15 Tylenol PO 650 mg Q4H PRN Administration Pain MILD(1-3)/Fever >100.5/AARON Albuterol 2.5 mg 02/21/19 20:15 Proventil IH Q3HRT PRN Shortness Of Breath Docusate Sodium 100 mg 02/21/19 22:00 02/24/19 10:34 Colace PO 100 mg BID MATT Administration Heparin Sodium (Porcine) 5,000 unit 02/21/19 22:00 02/23/19 22:15 Heparin SUB-Q Not Given Q12HR MATT Sodium Chloride 1,000 mls @ 50 mls/hr 02/21/19 21:00 02/23/19 17:18 Nacl 0.9% 1000 Ml IV 50 mls/hr DIRECT MATT Administration Ceftriaxone Sodium 1 gm in 50 mls @ 100 mls/hr 02/24/19 12:00 Rocephin/Ns 1 Gm/50 Ml IV Q24HR MATT Protocol Metoclopramide HCl 10 mg 02/21/19 20:15 Reglan IV Q6H PRN Nausea And Vomiting Morphine Sulfate 1 mg 02/22/19 14:31 02/23/19 22:07 Morphine IV 1 mg Q4H PRN Administration Pain , Severe (7-10) Ondansetron HCl 4 mg 02/21/19 20:15 02/22/19 14:53 Zofran IV 4 mg Q8H PRN Administration Nausea And Vomiting Oxycodone/Acetaminophen 1 tab 02/21/19 20:15 02/24/19 10:34 Percocet 5/325 PO 1 tab Q6H PRN Administration Pain, Moderate (4-6) Sodium Chloride 10 ml 02/21/19 22:00 02/24/19 10:35 Sodium Chloride Flush Syringe 10 Ml IV 10 ml BID MATT Administration Sodium Chloride 10 ml 02/21/19 20:15 Sodium Chloride Flush Syringe 10 Ml IV PRN PRN LINE FLUSH Nutrition/Malnutrition Assess - Dietary Evaluation Nutrition/Malnutrition Findings: Nutrition Notes Start: 02/22/19 12:09 Freq: Status: Active Protocol: Document 02/22/19 12:09 OH (Rec: 02/22/19 12:23 OH [id number]) Nutrition Notes Need for Assessment generated from: MD Order Initial or Follow up Assessment Current Diagnosis Acute Kidney Injury,Diabetes, Sepsis Other Pertinent Diagnosis chronic pain; Current Diet cardiac/Consistent CHO Labs/Tests hgba1c 5.4 Height 5 ft 5 in Weight 48.2 kg [place] Body Weight (kg) 56.81 BMI 17.6 Intake Prior to Admission Poor Weight change and time frame Weight change noted from 02/21 to 02/22. Wt to be monitored daily per MD. Weight Status Underweight Subjective/Other Information Malnutrition MD referral. Pt. noted to be lying in bed with daughter at bedside. Per daughter she had recently been informed pt has renal failure . Daughter indicates pt does have broken teeth. 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 Per nursing notes pt has small dime size open wound on buttocks. At home pt uses w/c secondary to back pain/poor mobility. At this time MD not recommending dialysis. Burn Absent Trauma Absent GI Symptoms None Food Allergy No Usual Diet at Home Regular Current % PO Fair (50-74%) Muscle Mass Mild Depletion (non-severe) Protein-Calorie Malnutrition Severe #1 Nutrition Diagnosis Inadequate oral intake Etiology Poor appetite/<75% meal tray consumed As Evidenced by Signs and Symptoms low BMI Diagnosis Progress(for reassessment Continues documentation) Is patient on ventilator? No Is Patient Ambulatory and/or Out of Bed No REE-([facility]-confined to bed) 1256.820 Kcal/Kg value to use for calculation 35 Approximate Energy Requirements Using 1687 kcal/Kg Calculation Used for Recommendations Kcal/kg Additional Notes FLUID: 1 mL/kcal PRO: 0.8-1.2 G/KG/BW 44-67 G /DAY Nutrition Intervention Change Diet Order: Cont Consistent CHO/CARDIAC soft Add Supplement/Snack (indicate name/kcal nepro q day /protein ) Provides kCal: 425 Provides Protein (gm) 19 Teaching Recipient Patient,Family Learning Readiness Good Teaching Methods Discussion Response to Teaching Verbalize understanding Education Handouts Provided Spoke with daughter about CKD and importance of being educated regarding plan of care if CKD stage increases. Recommended pt/family [facility] with [facility] for [facility] education and opportunities to manage CKD. Barriers to Learning Cognitive/Verbal,Motivation, Emotional,Environmental Goal #1 Po intake to exceed >75% meal tray Anticipated Discharge Needs: CKD education/referral Follow-Up By: 02/24/19 Additional Comments Monitor po intake/ONS tolerance
[2019-02-24] MEDS: ROCEPHIN/NS 1 GM/50 ML 1 GM/50 ML BAG IV SCH (14:00)
--- NOTE | 2019-02-24 14:19 | Progress Note ---
Assessment and Plan Acute kidney injury, likely prerenal azotemia Hyponatremia, likely hypovolemic Urosepsis Hypertension Diabetes Mellitus Metabolic Acidosis - Renal function reviewed. Serum creatinine 3.2 today, yesterday's was 3.3 - Urine lytes reviewed- Urine osmo-338, Urine creatinine-39.4, Urine sodium-93 and urine eosinophils- none seen - Urine protein>500. Ordered protein/creatinine ratio. - Ordered GN work-up- in progress - So far Hep panel and HIV are negative - Re-ordered 24 hour urine collection for creatinine clearance. 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 Left renal cysts. - Metabolic Acidosis- Start Sodium Bicarbonate 1300 mg po TID - On NS at 50 ml/hr - Sodium level today is 139, yesterday's was 134 - Strict I&O. No accurate I/O's being recorded - Obtain daily weights - Renally dose medications - Avoid nephrotoxic agents - Continue to monitor renal function closely - Plan of care reviewed with Dr. Aiken Subjective Date of service: 02/24/19 Principal diagnosis: ARF Interval history: Patient seen lying in bed. States she wants pain medication. Notified nurse. Discussed with RN to start 24 hour urine collection. Reviewed renal plan of care. No family at bedside. Objective - Vital Signs Vital signs: Vital Signs - 12hr 02/24/19 02/24/19 02/24/19 04:01 08:09 11:45 Temperature 98.0 F 98.5 F 98.0 F Pulse Rate 83 93 H Respiratory 18 18 18 Rate Blood Pressure 118/70 141/69 122/66 O2 Sat by Pulse 97 99 Oximetry - General Appearance General appearance: well-developed, appears stated age, fatigue EENT: ATNC, PERRL, hearing intact, vision intact Neck: no JVD, supple Respiratory: Present: Decreased Breath Sounds Cardiology: S1S2 Gastrointestinal: normoactive bowel sounds Integumentary: warm and dry Neurologic: alert and oriented x3 Musculoskeletal: other (No edema) - Lab 02/24/19 04:43 02/24/19 08:42 Most recent lab results Calcium 7.4 mg/dL (8.4-10.2) L 02/24/19 04:43 Phosphorus 3.60 mg/dL (2.5-4.5) 02/24/19 03:37 36.2 mg/dL (0.1-20.0) H 02/23/19 16:30 93 mmol/L 02/23/19 05:00 188 mg/dL (5-11.8) H 02/23/19 16:30 Medications & Allergies - Medications Allergies/Adverse Reactions: Allergies Sulfa (Sulfonamide Antibiotics) Allergy (Verified 02/21/19 17:25) Unknown Active Medications: Generic Name Dose Route Start Last Admin Trade Name Freq PRN Reason Stop Dose Admin Acetaminophen 650 mg 02/21/19 20:15 02/22/19 13:15 Tylenol PO 650 mg Q4H PRN Administration Pain MILD(1-3)/Fever >100.5/AARON Albuterol 2.5 mg 02/21/19 20:15 Proventil IH Q3HRT PRN Shortness Of Breath Docusate Sodium 100 mg 02/21/19 22:00 02/24/19 10:34 Colace PO 100 mg BID MATT Administration Heparin Sodium (Porcine) 5,000 unit 02/21/19 22:00 02/23/19 22:15 Heparin SUB-Q Not Given Q12HR [facility] Sodium Chloride 1,000 mls @ 50 mls/hr 02/21/19 21:00 02/23/19 17:18 Nacl 0.9% 1000 Ml IV 50 mls/hr DIRECT MATT Administration Ceftriaxone Sodium 1 gm in 50 mls @ 100 mls/hr 02/24/19 12:00 Rocephin/Ns 1 Gm/50 Ml IV Q24HR [facility] Protocol Metoclopramide HCl 10 mg 02/21/19 20:15 Reglan IV Q6H PRN Nausea And Vomiting Morphine Sulfate 1 mg 02/22/19 14:31 02/23/19 22:07 Morphine IV 1 mg Q4H PRN Administration Pain , Severe (7-10) Ondansetron HCl 4 mg 02/21/19 20:15 02/22/19 14:53 Zofran IV 4 mg Q8H PRN Administration Nausea And Vomiting Oxycodone/Acetaminophen 1 tab 02/21/19 20:15 02/24/19 10:34 Percocet 5/325 PO 1 tab Q6H PRN Administration Pain, Moderate (4-6) Sodium Chloride 10 ml 02/21/19 22:00 02/24/19 10:35 Sodium Chloride Flush Syringe 10 Ml IV 10 ml BID MATT Administration Sodium Chloride 10 ml 02/21/19 20:15 Sodium Chloride Flush Syringe 10 Ml IV PRN PRN LINE FLUSH
--- NOTE | 2019-02-24 15:30 | Consultation ---
History of Present Illness - Reason for Consult Consult date: 02/24/19 - History of Present Illness 63 yo F PMHx Dm2, HTN, chronic low back pain resulting in being wheelchair bound. She presented to the hospital initially complaining of poor PO intake with associated weakness which began on the day prior to admission. It had gotten progressively worse over that day which precipitated her daughter bringing her to the hospital. She denies any symptoms such as fevers, sweats, chills. Denies dysuria, frequency, urgency. Afebrile since admission with an improved white count to 9. Currently receiving ceftriaxone. Blood cultures positive for a ellis-sensitive E coli. UA with significant pyuria, though urine cultures are negative. Pelvis and renal US showing debris in the bladder, but no focal collection. Head CT normal. Abdominal xray normal. Past History Past Medical History: diabetes, hypertension, other (wheelchair-bound secondary to chronic back pain) Past Surgical History: No surgical history Social history: smoking (smokes 3-4 cigarettes per day) Family history: diabetes, hypertension Medications and Allergies Allergies Allergy/AdvReac Type Severity Reaction Status Date / Time Sulfa (Sulfonamide Allergy Unknown Verified 02/21/19 17:25 Antibiotics) Active Meds: Active Medications Acetaminophen (Tylenol) 650 mg PO Q4H PRN PRN Reason: Pain MILD(1-3)/Fever >100.5/AARON Last Admin: 02/22/19 13:15 Dose: 650 mg Documented by: Albuterol (Proventil) 2.5 mg IH Q3HRT PRN PRN Reason: Shortness Of Breath Docusate Sodium (Colace) 100 mg PO BID [facility] Last Admin: 02/24/19 10:34 Dose: 100 mg Documented by: Heparin Sodium (Porcine) (Heparin) 5,000 unit SUB-Q Q12HR MATT Last Admin: 02/23/19 22:15 Dose: Not Given Documented by: Sodium Chloride (Nacl 0.9% 1000 Ml) 1,000 mls @ 50 mls/hr IV DIRECT MATT Last Admin: 02/23/19 17:18 Dose: 50 mls/hr Documented by: Ceftriaxone Sodium (Rocephin/Ns 1 Gm/50 Ml) 1 gm in 50 mls @ 100 mls/hr IV Q24HR MATT; Protocol Metoclopramide HCl (Reglan) 10 mg IV Q6H PRN PRN Reason: Nausea And Vomiting Morphine Sulfate (Morphine) 1 mg IV Q4H PRN PRN Reason: Pain , Severe (7-10) Last Admin: 02/23/19 22:07 Dose: 1 mg Documented by: Ondansetron HCl (Zofran) 4 mg IV Q8H PRN PRN Reason: Nausea And Vomiting Last Admin: 02/22/19 14:53 Dose: 4 mg Documented by: Oxycodone/Acetaminophen (Percocet 5/325) 1 tab PO Q6H PRN PRN Reason: Pain, Moderate (4-6) Last Admin: 02/24/19 10:34 Dose: 1 tab Documented by: Sodium Chloride (Sodium Chloride Flush Syringe 10 Ml) 10 ml IV BID MATT Last Admin: 02/24/19 10:35 Dose: 10 ml Documented by: Sodium Chloride (Sodium Chloride Flush Syringe 10 Ml) 10 ml IV PRN PRN PRN Reason: LINE FLUSH Review of Systems Constitutional: weakness, no fever, no chills, no sweats Ears, nose, mouth and throat: no sinus pain, no dysphagia, no sore throat Cardiovascular: no chest pain, no palpitations, no rapid/irregular heart beat, no syncope Respiratory: no cough, no hemoptysis, no shortness of breath, no dyspnea on exertion Gastrointestinal: no abdominal pain, no nausea, no vomiting, no diarrhea Musculoskeletal: low back pain, no shooting leg pain, no myalgias Integumentary: no rash, no redness, no sores Neurological: weakness, no paralysis, no seizures, no syncope Endocrine: no cold intolerance, no heat intolerance, no polyphagia, no polydi psia Hematologic/Lymphatic: no easy bruising, no easy bleeding, no lymphadenopathy Physical Examination - Physical Exam Narrative exam: Constitutional: awake, no distress, following commands Head, Ears, Nose: Normocephalic, atraumatic. External ears, nose normal Eyes: Conjunctivae/corneas clear. No icterus. No ptosis. Neck: Supple, no meningeal signs Oral: fair dentition, moist mucous membranes Cardiovascular: S1, S2 normal. Normal rhythm Respiratory: Good air entry, clear to auscultation bilaterally GI: Soft, non-tender; bowel sounds normal. No peritoneal signs Musculoskeletal: No pedal edema, Skin: No rash or abscess Hem/Lymphatic: No palpable cervical or supraclavicular nodes. No lymphangitis Psych: no agitation Neurological: Moves all extremities, no focal defects - Constitutional Vitals: Vital Signs Temp Pulse Resp BP Pulse Ox 98.0 F 93 H 18 122/66 99 02/24/19 11:45 02/24/19 11:45 02/24/19 11:45 02/24/19 11:45 02/24/19 11:45 Temperature -Last 24 Hours Temperature 98.0 F Temperature 98.5 F Temperature 98.0 F Temperature 98.0 F Temperature 98.0 F Temperature 98.2 F Results - Labs CBC & Chem 7: 02/24/19 04:43 02/24/19 08:42 Labs: Abnormal lab results 02/23/19 02/23/19 02/23/19 Range/Units 16:30 16:30 Unknown RBC (3.65-5.03) M/mm3 Hgb (10.1-14.3) gm/dl Hct (30.3-42.9) % MCH (28-32) pg MCHC (30-34) % Seg Neuts % (Manual) (40.0-70.0) % Lymphocytes % (Manual) (13.4-35.0) % Seg Neutrophils # Man (1.8-7.7) K/mm3 Lymphocytes # (Manual) (1.2-5.4) K/mm3 Sodium 134 L (137-145) mmol/L Potassium (3.6-5.0) mmol/L Carbon Dioxide (22-30) mmol/L BUN (7-17) mg/dL Creatinine (0.7-1.2) mg/dL Calcium (8.4-10.2) mg/dL Urine WBC (Auto) > 182.0 H (0.0-6.0) /HPF Urine Creatinine 36.2 H (0.1-20.0) mg/dL Urine Total Protein 188 H (5-11.8) mg/dL 02/24/19 02/24/19 Range/Units 04:43 04:43 RBC 2.58 L (3.65-5.03) M/mm3 Hgb 8.7 L (10.1-14.3) gm/dl Hct 24.5 L (30.3-42.9) % MCH 34 H (28-32) pg MCHC 36 H (30-34) % Seg Neuts % (Manual) 88.0 H (40.0-70.0) % Lymphocytes % (Manual) 11.0 L (13.4-35.0) % Seg Neutrophils # Man 7.8 H (1.8-7.7) K/mm3 Lymphocytes # (Manual) 1.0 L (1.2-5.4) K/mm3 Sodium (137-145) mmol/L Potassium 3.5 L (3.6-5.0) mmol/L Carbon Dioxide 13 L (22-30) mmol/L BUN 66 H (7-17) mg/dL Creatinine 3.2 H (0.7-1.2) mg/dL Calcium 7.4 L (8.4-10.2) mg/dL Urine WBC (Auto) (0.0-6.0) /HPF Urine Creatinine (0.1-20.0) mg/dL Urine Total Protein (5-11.8) mg/dL - Imaging and Cardiology Abdominal x-ray: image reviewed CT Scan - head: image reviewed Assessment and Plan Cultures: 02/21/19 BCx - E coli ellis-sensitive 02/21/19 UCx - negative A/P 63 yo F PMHx Dm2, HTN, chronic low back pain resulting in being wheelchair bound admitted with sepsis secondary to UTI. 1. Sepsis secondary to UTI - currently with a ellis-sensitive E coli. Currently receiving ceftriaxone. Can change to high dose PO ciprofloxacin (750mg q24) for discharge purposes (QTc 421) to complete 2 weeks total course. 2. DM2 3. HTN 4. Chronic low back pain 5. Chronic debility 6. Tobacco abuse 7. CKD - EGFR based on Cockroft-Gault: 14 Recs: - continue ceftriaxone - start Ciprofloxacin 750mg q24 PO (stop date: 03/07) on discharge.
[2019-02-24] MEDS: SODIUM BICARBONATE PO SCH (22:10)
[2019-02-25 05:41] LABS: Hematocrit 24.9 % (30.3-42.9); Hemoglobin 8.9 gm/dl (10.1-14.3); Mean Corpuscular HGB Conc 36 % (30-34); Mean Corpuscular Volume 95 fl (79-97); Platelet Count 213 K/mm3 (140-440); Red Blood Count 2.64 M/mm3 (3.65-5.03); Red Cell Distribution Width 14.7 % (13.2-15.2)
[2019-02-25 05:53] LABS: Calcium 7.8 mg/dL (8.4-10.2)
[2019-02-25 06:56] LABS: Anisocytosis Few; Band Neutrophils # (Manual) 0.1 K/mm3; Basophils % (Manual) 0 % (0.0-1.8); Eosinophils % (Manual) 0 % (0.0-4.3); Platelet Estimate Consistent w Auto; Poikilocytosis Few; Total Cells Counted 100
--- NOTE | 2019-02-25 09:26 | Progress Note ---
Assessment and Plan Acute kidney injury, likely prerenal azotemia Hyponatremia, likely hypovolemic Urosepsis Hypertension Diabetes Mellitus Metabolic Acidosis - Cr is stable, non oliguric - urine eosinophils- none seen - Ordered GN work-up- in progress, so Hep panel and HIV are negative - Re-ordered 24 hour urine collection for creatinine clearance. 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 Left renal cysts. - Metabolic Acidosis- Sodium Bicarbonate 1300 mg po TID - On NS at 50 ml/hr - Strict I&O. No accurate I/O's being recorded - Obtain daily weights - Renally dose medications - Avoid nephrotoxic agents - Continue to monitor renal function closely Cade weiner MD [phone] Subjective Date of service: 02/25/19 Principal diagnosis: ARF Interval history: denies acute issues. Objective - Vital Signs Vital signs: Vital Signs - 12hr 02/24/19 02/24/19 02/25/19 23:32 23:47 03:50 Temperature 98.0 F 98.0 F Pulse Rate 107 H 85 Respiratory 18 18 Rate Blood Pressure 153/91 149/82 O2 Sat by Pulse 100 97 97 Oximetry 02/25/19 02/25/19 08:04 08:39 Temperature 98.6 F Pulse Rate 81 78 Respiratory 14 Rate Blood Pressure 145/79 155/84 O2 Sat by Pulse 100 100 Oximetry - General Appearance General appearance: well-developed, well-nourished, appears stated age EENT: ATNC, PERRL, mucous membranes moist Neck: no JVD, no carotid bruit Respiratory: Present: Clear to Ascultation Cardiology: regular, normal heart rate Gastrointestinal: normoactive bowel sounds Integumentary: no rash, warm and dry Neurologic: no focal deficit, no asterixis Musculoskeletal: other (no edema in BLE) Psychiatric: mood/affect appropriate, cooperative - Lab 02/25/19 04:51 02/25/19 04:51 Most recent lab results Calcium 7.8 mg/dL (8.4-10.2) L 02/25/19 04:51 Phosphorus 3.60 mg/dL (2.5-4.5) 02/24/19 03:37 36.2 mg/dL (0.1-20.0) H 02/23/19 16:30 93 mmol/L 02/23/19 05:00 188 mg/dL (5-11.8) H 02/23/19 16:30 Medications & Allergies - Medications Allergies/Adverse Reactions: Allergies Sulfa (Sulfonamide Antibiotics) Allergy (Verified 02/21/19 17:25) Unknown Active Medications: Generic Name Dose Route Start Last Admin Trade Name Freq PRN Reason Stop Dose Admin Acetaminophen 650 mg 02/21/19 20:15 02/22/19 13:15 Tylenol PO 650 mg Q4H PRN Administration Pain MILD(1-3)/Fever >100.5/AARON Albuterol 2.5 mg 02/21/19 20:15 Proventil IH Q3HRT PRN Shortness Of Breath Docusate Sodium 100 mg 02/21/19 22:00 02/24/19 22:10 Colace PO 100 mg BID MATT Administration Heparin Sodium (Porcine) 5,000 unit 02/21/19 22:00 02/24/19 22:11 Heparin SUB-Q 5,000 unit Q12HR MATT Administration Ceftriaxone Sodium 1 gm in 50 mls @ 100 mls/hr 02/24/19 12:00 02/24/19 14:00 Rocephin/Ns 1 Gm/50 Ml IV 03/07/19 23:59 100 mls/hr Q24HR MATT Administration Protocol Sodium Chloride 1,000 mls @ 50 mls/hr 02/25/19 10:00 Nacl 0.9% 1000 Ml IV DIRECT MATT Metoclopramide HCl 10 mg 02/21/19 20:15 Reglan IV Q6H PRN Nausea And Vomiting Morphine Sulfate 1 mg 02/22/19 14:31 02/23/19 22:07 Morphine IV 1 mg Q4H PRN Administration Pain , Severe (7-10) Ondansetron HCl 4 mg 02/21/19 20:15 02/22/19 14:53 Zofran IV 4 mg Q8H PRN Administration Nausea And Vomiting Oxycodone/Acetaminophen 1 tab 02/21/19 20:15 02/24/19 10:34 Percocet 5/325 PO 1 tab Q6H PRN Administration Pain, Moderate (4-6) Sodium Bicarbonate 1,300 mg 02/24/19 20:00 02/24/19 22:10 Sodium Bicarbonate PO 1,300 mg TID MATT Administration Sodium Chloride 10 ml 02/21/19 22:00 02/24/19 22:11 Sodium Chloride Flush Syringe 10 Ml IV 10 ml BID MATT Administration Sodium Chloride 10 ml 02/21/19 20:15 Sodium Chloride Flush Syringe 10 Ml IV PRN PRN LINE FLUSH
[2019-02-25] MEDS: COLACE PO SCH ×2 (10:26→21:25)
[2019-02-25] MEDS: ROCEPHIN/NS 1 GM/50 ML 1 GM/50 ML BAG IV SCH (10:26)
[2019-02-25] MEDS: SODIUM BICARBONATE PO SCH ×3 (10:26→21:24)
[2019-02-25] MEDS: SODIUM CHLORIDE FLUSH SYRINGE 10 ML IV SCH ×2 (10:27→21:25)
--- NOTE | 2019-02-25 10:39 | Progress Note ---
Assessment and Plan Cultures: 02/21/19 BCx - E coli ellis-sensitive 02/21/19 UCx - negative A/P 63 yo F PMHx Dm2, HTN, chronic low back pain resulting in being wheelchair bound admitted with sepsis secondary to UTI. 1. Sepsis secondary to UTI - Improved. currently with a ellis-sensitive E coli. Currently receiving ceftriaxone. Can change to high dose PO ciprofloxacin (750mg q24) for discharge purposes (QTc 421) to complete 2 weeks total course. 2. DM2 3. HTN 4. Chronic low back pain 5. Chronic debility 6. Tobacco abuse 7. CKD - EGFR based on Cockroft-Gault: 14 Recs: - continue ceftriaxone 1 gm every 24 hours, D2 - Anticipate discharge on Ciprofloxacin 750mg q24 PO (stop date: 03/07) [facility] M: [phone] O:[phone] Subjective Date of service: 02/25/19 Principal diagnosis: ARF Interval history: Patient seen and examined. Sitting up in bed. No acute distress reported. Daughter at bedside. No fevers. Objective - Exam Narrative Exam: Constitutional: Awake. Alert. No acute distress Head, Ears, Nose: Normocephalic, atraumatic. External ears, nose normal Eyes: Conjunctivae/corneas clear. No icterus. No ptosis. Neck: Supple, no meningeal signs Oral: fair dentition, moist mucous membranes Cardiovascular: S1, S2 normal. Normal rhythm Respiratory: Good air entry, clear to auscultation bilaterally GI: Soft, non-tender; bowel sounds normal. No peritoneal signs Musculoskeletal: No pedal edema, Skin: No rash or abscess Hem/Lymphatic: No palpable cervical or supraclavicular nodes. No lymphangitis Psych: no agitation Neurological: Moves all extremities, no focal defects - Constitutional Vitals: Vital Signs Temp Pulse Resp BP Pulse Ox 98.6 F 78 14 155/84 100 02/25/19 08:04 02/25/19 08:39 02/25/19 08:04 02/25/19 08:39 02/25/19 08:39 Temperature -Last 24 Hours Temperature 98.6 F Temperature 98.0 F Temperature 98.0 F Temperature 98.2 F Temperature 97.9 F Temperature 98.0 F - Labs CBC & Chem 7: 02/25/19 04:51 02/25/19 04:51 Labs: Abnormal lab results 02/24/19 02/25/19 02/25/19 Range/Units 15:36 04:51 04:51 RBC 2.64 L (3.65-5.03) M/mm3 Hgb 8.9 L (10.1-14.3) gm/dl Hct 24.9 L (30.3-42.9) % MCH 34 H (28-32) pg MCHC 36 H (30-34) % Seg Neuts % (Manual) 89.0 H (40.0-70.0) % Lymphocytes % (Manual) 6.0 L (13.4-35.0) % Seg Neutrophils # Man 9.0 H (1.8-7.7) K/mm3 Lymphocytes # (Manual) 0.6 L (1.2-5.4) K/mm3 Sodium 136 L (137-145) mmol/L Potassium 3.5 L (3.6-5.0) mmol/L Chloride 108.5 H (98-107) mmol/L Carbon Dioxide 15 L (22-30) mmol/L BUN 53 H (7-17) mg/dL Creatinine 2.4 H (0.7-1.2) mg/dL POC Glucose 113 H (70-105) Calcium 7.8 L (8.4-10.2) mg/dL
[2019-02-25 10:49] LABS: Creatinine 24 Hour,Urine 0.5 (0.8-2.8)
[2019-02-25] MEDS: HEPARIN SUB-Q SCH ×2 (10:50→21:25)
--- NOTE | 2019-02-25 10:55 | Progress Note ---
Assessment and Plan Assessment and plan: Patient is a 63 yo woman with a history of DM type 2, hypertension, wheel bound due to chronic back pains and tobacco dependency who presents to [facility] with general weakness, poor intake. Pt has been taking Lortab for her chronic back pain for a long time and is currently being weaned. Per daughter pt's last dose of Lortab was taken two weeks ago. * pCXR Impression 1. Scattered areas of platelike atelectasis likely related to low volumes, no parenchymal consolidation * CT head without Impression 1. No acute intracranial abnormality Sepsis , Ecoli bacteremia; UTI: cont abx, ecoli bacteremia, ID consult appreciated Hematuria; likely due to bacterial hemorrhagic cystitis, resolved Hyponatremia, hyposmolatity: treat with IVF, monitor bmp closely 7 beats of vtach; echo and cardiology consult ARF, ATN+vasomotor nephrology: treat with IVF, Nephrology consult appreciated, cont to fup renal labs Bilateral atelectasis: treat incentive spirometry Severe malnutrition: consult Monologist Funtional quadriplegia: consult Physical Therapy Sacral decubitus ulcer stage 3 , poa; cont wound care DM type 2: ssi, ADA Tobacco dependency: counseled on cessation Hypertension: low salt Dispo; home with daughter and services when clinically improved History Interval history: no cp, no sob, no cough no fevers sacral pain is well controlled Hospitalist Physical - Physical exam Narrative exam: General appearance: Present: no acute distress - EENT Eyes: Present: PERRL ENT: hearing intact - Neck Neck: Present: supple - Respiratory Respiratory effort: normal Respiratory: bilateral: CTA - Cardiovascular Rhythm: regular Heart Sounds: Present: S1 & S2 - Extremities Extremities: no ischemia Extremity abnormal: edema - Abdominal General gastrointestinal: soft, non-tender - Integumentary Integumentary: Present: clear, warm, dry (stage 3 sacral decub) - Psychiatric Psychiatric: cooperative (confused at baseline) - Neurologic Neurologic: CNII-XII intact - Constitutional Vitals: Temp Pulse Resp BP Pulse Ox 98.6 F 78 14 155/84 100 02/25/19 08:04 02/25/19 08:39 02/25/19 08:04 02/25/19 08:39 02/25/19 08:39 Results - Labs CBC & Chem 7: 02/25/19 04:51 02/25/19 04:51 Labs: Laboratory Last Values WBC 10.1 K/mm3 (4.5-11.0) 02/25/19 04:51 RBC 2.64 M/mm3 (3.65-5.03) L 02/25/19 04:51 Hgb 8.9 gm/dl (10.1-14.3) L 02/25/19 04:51 Hct 24.9 % (30.3-42.9) L 02/25/19 04:51 MCV 95 fl (79-97) 02/25/19 04:51 MCH 34 pg (28-32) H 02/25/19 04:51 MCHC 36 % (30-34) H 02/25/19 04:51 RDW 14.7 % (13.2-15.2) 02/25/19 04:51 Plt Count 213 K/mm3 (140-440) 02/25/19 04:51 Add Manual Diff Complete 02/25/19 04:51 Total Counted 100 02/25/19 04:51 Seg Neutrophils % Manager Program 02/23/19 03:41 Seg Neuts % (Manual) 89.0 % (40.0-70.0) H 02/25/19 04:51 1.0 % 02/25/19 04:51 6.0 % (13.4-35.0) L 02/25/19 04:51 Reactive Lymphs % (Man) 0 % 02/25/19 04:51 4.0 % (0.0-7.3) 02/25/19 04:51 0 % (0.0-4.3) 02/25/19 04:51 0 % (0.0-1.8) 02/25/19 04:51 0 % 02/25/19 04:51 0 % 02/25/19 04:51 0 % 02/25/19 04:51 0 % 02/25/19 04:51 Nucleated RBC % Not Reportable 02/25/19 04:51 Seg Neutrophils # Man 9.0 K/mm3 (1.8-7.7) H 02/25/19 04:51 Band Neutrophils # 0.1 K/mm3 02/25/19 04:51 0.6 K/mm3 (1.2-5.4) L 02/25/19 04:51 Abs React Lymphs (Man) 0.0 K/mm3 02/25/19 04:51 0.4 K/mm3 (0.0-0.8) 02/25/19 04:51 0.0 K/mm3 (0.0-0.4) 02/25/19 04:51 0.0 K/mm3 (0.0-0.1) 02/25/19 04:51 0.0 K/mm3 02/25/19 04:51 0.0 K/mm3 02/25/19 04:51 0.0 K/mm3 02/25/19 04:51 Blast Cells # 0.0 K/mm3 02/25/19 04:51 WBC Morphology Not Reportable 02/25/19 04:51 Hypersegmented Neuts Not Reportable 02/25/19 04:51 Hyposegmented Neuts Not Reportable 02/25/19 04:51 Hypogranular Neuts Not Reportable 02/25/19 04:51 Not Reportable 02/25/19 04:51 Not Reportable 02/25/19 04:51 Not Reportable 02/25/19 04:51 Not Reportable 02/25/19 04:51 Not Reportable 02/25/19 04:51 Not Reportable 02/25/19 04:51 Consistent w auto 02/25/19 04:51 Not Reportable 02/25/19 04:51 Plt Clumps, EDTA Not Reportable 02/25/19 04:51 Not Reportable 02/25/19 04:51 Not Reportable 02/25/19 04:51 Not Reportable 02/25/19 04:51 Plt Morphology Comment Not Reportable 02/25/19 04:51 RBC Morphology Not Reportable 02/25/19 04:51 Dimorphic RBCs Not Reportable 02/25/19 04:51 Not Reportable 02/25/19 04:51 Not Reportable 02/25/19 04:51 Few 02/25/19 04:51 Few 02/25/19 04:51 Not Reportable 02/25/19 04:51 Not Reportable 02/25/19 04:51 Not Reportable 02/25/19 04:51 Not Reportable 02/25/19 04:51 Not Reportable 02/25/19 04:51 Not Reportable 02/25/19 04:51 Not Reportable 02/25/19 04:51 Not Reportable 02/25/19 04:51 Not Reportable 02/25/19 04:51 Not Reportable 02/25/19 04:51 Not Reportable 02/25/19 04:51 Not Reportable 02/25/19 04:51 Not Reportable 02/25/19 04:51 Not Reportable 02/25/19 04:51 Not Reportable 02/25/19 04:51 Acanthocytes (Spur) Not Reportable 02/25/19 04:51 Rouleaux Not Reportable 02/25/19 04:51 Not Reportable 02/25/19 04:51 Not Reportable 02/25/19 04:51 Not Reportable 02/25/19 04:51 Not Reportable 02/25/19 04:51 Hem Pathologist Commnt No 02/25/19 04:51 Sodium 136 mmol/L (137-145) L 02/25/19 04:51 Potassium 3.5 mmol/L (3.6-5.0) L 02/25/19 04:51 Chloride 108.5 mmol/L (98-107) H 02/25/19 04:51 Carbon Dioxide 15 mmol/L (22-30) L 02/25/19 04:51 16 mmol/L 02/25/19 04:51 BUN 53 mg/dL (7-17) H 02/25/19 04:51 2.4 mg/dL (0.7-1.2) H 02/25/19 04:51 Estimated GFR 25 ml/min 02/25/19 04:51 22 % 02/25/19 04:51 Glucose 89 mg/dL (65-100) 02/25/19 04:51 POC Glucose 80 (70-105) 02/25/19 08:08 5.4 % (4-6) 02/21/19 20:23 284 Mosm/kg 02/22/19 09:11 Lactic Acid 1.10 mmol/L (0.7-2.0) 02/22/19 06:57 Calcium 7.8 mg/dL (8.4-10.2) L 02/25/19 04:51 Phosphorus 3.60 mg/dL (2.5-4.5) 02/24/19 03:37 0.40 mg/dL (0.1-1.2) 02/21/19 18:02 AST 33 units/L (5-40) 02/21/19 18:02 ALT 28 units/L (7-56) 02/21/19 18:02 111 units/L (35-129) 02/21/19 18:02 < 0.010 ng/mL (0.00-0.029) 02/21/19 18:02 6.4 g/dL (6.3-8.2) 02/21/19 18:02 2.6 g/dL (3.9-5) L 02/21/19 18:02 0.7 % 02/21/19 18:02 Yellow (Yellow) 02/23/19 16:30 Turbid (Clear) 02/23/19 16:30 6.0 (5.0-7.0) 02/23/19 16:30 Ur Specific [place] 1.010 (1.003-1.030) 02/23/19 16:30 100 mg/dl mg/dL (Negative) 02/23/19 16:30 50 mg/dL (Negative) 02/23/19 16:30 Tr mg/dL (Negative) 02/23/19 16:30 Lg (Negative) 02/23/19 16:30 Neg (Negative) 02/23/19 16:30 Neg (Negative) 02/23/19 16:30 < 2.0 mg/dL (<2.0) 02/23/19 16:30 Ur Leukocyte Esterase Lg (Negative) 02/23/19 16:30 > 182.0 /HPF (0.0-6.0) H 02/23/19 16:30 > 182.0 /HPF (0.0-6.0) 02/23/19 16:30 3+ /HPF (Negative) 02/23/19 16:30 3+ /HPF 02/21/19 18:54 Few /HPF 02/23/19 16:30 3+ /HPF 02/21/19 18:54 None seen (None Seen) 02/23/19 05:00 338 Mosm/kg 02/23/19 05:00 1150 ml 02/24/19 14:58 45.0 mg/dL (0.1-20.0) H 02/24/19 14:58 Protein/Creatinin Ratio 5.19 02/23/19 16:30 93 mmol/L 02/23/19 05:00 188 mg/dL (5-11.8) H 02/23/19 16:30 Hepatitis A IgM Ab Non-reactive (NonReactive) 02/23/19 13:04 Hep Bs Antigen Non-reactive (Negative) 02/23/19 13:04 Hep B Core IgM Ab Non-reactive (NonReactive) 02/23/19 13:04 Non-reactive (NonReactive) 02/23/19 13:04 HIV 1&2 Antibody Rapid Non react (Non React) 02/23/19 13:04 Non react (Non React) 02/23/19 13:04 Active Medications - Current Medications Current Medications: Generic Name Dose Route Start Last Admin Trade Name Freq PRN Reason Stop Dose Admin Acetaminophen 650 mg 02/21/19 20:15 02/22/19 13:15 Tylenol PO 650 mg Q4H PRN Administration Pain MILD(1-3)/Fever >100.5/AARON Albuterol 2.5 mg 02/21/19 20:15 Proventil IH Q3HRT PRN Shortness Of Breath Docusate Sodium 100 mg 02/21/19 22:00 02/25/19 10:26 Colace PO 100 mg BID MATT Administration Heparin Sodium (Porcine) 5,000 unit 02/21/19 22:00 02/25/19 10:50 Heparin SUB-Q 5,000 unit Q12HR MATT Administration Ceftriaxone Sodium 1 gm in 50 mls @ 100 mls/hr 02/24/19 12:00 02/25/19 10:26 Rocephin/Ns 1 Gm/50 Ml IV 03/07/19 23:59 100 mls/hr Q24HR MATT Administration Protocol Sodium Chloride 1,000 mls @ 50 mls/hr 02/25/19 10:00 Nacl 0.9% 1000 Ml IV DIRECT MATT Metoclopramide HCl 10 mg 02/21/19 20:15 Reglan IV Q6H PRN Nausea And Vomiting Morphine Sulfate 1 mg 02/22/19 14:31 02/23/19 22:07 Morphine IV 1 mg Q4H PRN Administration Pain , Severe (7-10) Ondansetron HCl 4 mg 02/21/19 20:15 02/22/19 14:53 Zofran IV 4 mg Q8H PRN Administration Nausea And Vomiting Oxycodone/Acetaminophen 1 tab 02/21/19 20:15 02/24/19 10:34 Percocet 5/325 PO 1 tab Q6H PRN Administration Pain, Moderate (4-6) Sodium Bicarbonate 1,300 mg 02/24/19 20:00 02/25/19 10:26 Sodium Bicarbonate PO 1,300 mg TID MATT Administration Sodium Chloride 10 ml 02/21/19 22:00 02/25/19 10:27 Sodium Chloride Flush Syringe 10 Ml IV 10 ml BID MATT Administration Sodium Chloride 10 ml 02/21/19 20:15 Sodium Chloride Flush Syringe 10 Ml IV PRN PRN LINE FLUSH Nutrition/Malnutrition Assess - Dietary Evaluation Nutrition/Malnutrition Findings: Nutrition Notes Start: 02/22/19 12:09 Freq: Status: Active Protocol: Document 02/24/19 15:17 RM (Rec: 02/24/19 15:30 RM [id number]) Nutrition Notes Initial or Follow up Reassessment Current Diagnosis Acute Kidney Injury,Diabetes Other Pertinent Diagnosis chronic pain Current Diet Pureed Labs/Tests Reviewed Pertinent Medications Zofran Height 5 ft 5 in Weight 48.2 kg Usual Body Weight 58.18 kg [place] Body Weight (kg) 56.81 BMI 17.6 Weight change and time frame 17% wt loss X 1 month and 1 week Subjective/Other Information Pt and pt daughter in room at time of visit. Pt daughter stated that [employer] pt ate 3 small meals daily. Pt was being fed her first meal here at time of visit. Pt daughter stated that pt UBW was 125-130 lbs on January 19. Note temporal wasting. Burn Absent Trauma Absent Minimum of two criteria Yes Energy Intake (non-severe) <75% Estimated Energy Requirement >7 days Interpretation of Weight Loss (severe) >7.5% in 3 months Muscle Mass Mild Depletion (non-severe) #2 Nutrition Diagnosis Malnutrition Etiology decreased appetite As Evidenced by Signs and Symptoms temporal wasting, BMI 17.7, pt daughter statement that [employer] pt ate 3 small meals daily, 17 % wt loss X 1 month and 1 week #1 Nutrition Diagnosis Inadequate oral intake Diagnosis Progress(for reassessment Continues documentation) Is patient on ventilator? No Is Patient Ambulatory and/or Out of Bed No REE-([place]-confined to bed) 1256.820 Kcal/Kg value to use for calculation 36 Approximate Energy Requirements Using 1735 kcal/Kg Calculation Used for Recommendations Kcal/kg Additional Notes FLUID: 1 mL/kcal PRO: 58-72g (1.2-1.5g/kg) Nutrition Intervention Change Diet Order: Continue current Add Supplement/Snack (indicate name/kcal Glucerna 1 daily /protein ) Provides kCal: 240 Provides Protein (gm) 10 Goal #1 Meet at least 75% of calorie and protein needs via PO and ONS intakes Anticipated Discharge Needs: Pureed diet Follow-Up By: 02/26/19 Additional Comments Follow for PO and ONS intakes
[2019-02-25 11:28] LABS: Patient Weight,Urine 106.2 lbs
[2019-02-25 11:36] LABS: Creatinine,Urine 45.9 mg/dL (0.1-20.0)
[2019-02-25] MEDS: PERCOCET 5/325 PO PRN (12:39)
[2019-02-25] MEDS: NACL 0.9% 1000 ML 1,000 ML IV SCH (12:44)
--- NOTE | 2019-02-25 13:54 | Consultation ---
History of Present Illness Consult date: 02/25/19 Consult reason: other (NSVT) History of present illness: Patient is a 63-year old woman who is admitted with generalized weakness, acute kidney injury, hyponatremia and sepsis thought secondary to UTI. A cardiac consultation has been requested for transient NSVT seen on telemetry. It is reported the patient remained asymptomatic. She had no chest pain, no unusual shortness of breath and no palpitations. Her presenting ECG is sinus tachycardia with nonspecific Twave changes. Past History Past Medical History: diabetes, hypertension, other (wheelchair-bound secondary to chronic back pain) Social history: smoking (smokes 3-4 cigarettes per day) Family history: diabetes, hypertension Medications and Allergies Allergies Allergy/AdvReac Type Severity Reaction Status Date / Time Sulfa (Sulfonamide Allergy Unknown Verified 02/21/19 17:25 Antibiotics) Active Meds: Active Medications Acetaminophen (Tylenol) 650 mg PO Q4H PRN PRN Reason: Pain MILD(1-3)/Fever >100.5/AARON Last Admin: 02/22/19 13:15 Dose: 650 mg Documented by: Albuterol (Proventil) 2.5 mg IH Q3HRT PRN PRN Reason: Shortness Of Breath Docusate Sodium (Colace) 100 mg PO BID [facility] Last Admin: 02/25/19 10:26 Dose: 100 mg Documented by: Heparin Sodium (Porcine) (Heparin) 5,000 unit SUB-Q Q12HR [facility] Last Admin: 02/25/19 10:50 Dose: 5,000 unit Documented by: Ceftriaxone Sodium (Rocephin/Ns 1 Gm/50 Ml) 1 gm in 50 mls @ 100 mls/hr IV Q24HR [facility]; Protocol Stop: 03/07/19 23:59 Last Admin: 02/25/19 10:26 Dose: 100 mls/hr Documented by: Sodium Chloride (Nacl 0.9% 1000 Ml) 1,000 mls @ 50 mls/hr IV DIRECT [facility] Last Admin: 02/25/19 12:44 Dose: 50 mls/hr Documented by: Metoclopramide HCl (Reglan) 10 mg IV Q6H PRN PRN Reason: Nausea And Vomiting Morphine Sulfate (Morphine) 1 mg IV Q4H PRN PRN Reason: Pain , Severe (7-10) Last Admin: 02/23/19 22:07 Dose: 1 mg Documented by: Ondansetron HCl (Zofran) 4 mg IV Q8H PRN PRN Reason: Nausea And Vomiting Last Admin: 02/22/19 14:53 Dose: 4 mg Documented by: Oxycodone/Acetaminophen (Percocet 5/325) 1 tab PO Q6H PRN PRN Reason: Pain, Moderate (4-6) Last Admin: 02/25/19 12:39 Dose: 1 tab Documented by: Sodium Bicarbonate (Sodium Bicarbonate) 1,300 mg PO TID [facility] Last Admin: 02/25/19 10:26 Dose: 1,300 mg Documented by: Sodium Chloride (Sodium Chloride Flush Syringe 10 Ml) 10 ml IV BID [facility] Last Admin: 02/25/19 10:27 Dose: 10 ml Documented by: Sodium Chloride (Sodium Chloride Flush Syringe 10 Ml) 10 ml IV PRN PRN PRN Reason: LINE FLUSH Physical Examination Vital Signs BP 87/54 02/21/19 17:30 General appearance: no acute distress HEENT: Positive: PERRL Neck: Positive: trachea midline Cardiac: Positive: Reg Rate and Rhythm Lungs: Positive: Decreased Breath Sounds Results 02/25/19 04:51 02/25/19 04:51 CBC 02/25/19 Range/Units 04:51 WBC 10.1 (4.5-11.0) K/mm3 RBC 2.64 L (3.65-5.03) M/mm3 Hgb 8.9 L (10.1-14.3) gm/dl Hct 24.9 L (30.3-42.9) % Plt Count 213 (140-440) K/mm3 Comprehensive Metabolic Panel 02/25/19 Range/Units 04:51 Sodium 136 L (137-145) mmol/L Potassium 3.5 L (3.6-5.0) mmol/L Chloride 108.5 H (98-107) mmol/L Carbon Dioxide 15 L (22-30) mmol/L BUN 53 H (7-17) mg/dL Creatinine 2.4 H (0.7-1.2) mg/dL Glucose 89 (65-100) mg/dL Calcium 7.8 L (8.4-10.2) mg/dL Assessment and Plan Generalized weakness Acute kidney injury Hyponatremia Hypertension Diabetes Mellitus Metabolic Acidosis Sepsis thought secondary to UTI Paroxysmal NSVT on telemetry pt remained asymptomatic. Plan: We will check a TSH and magnesium level. Obtain an echocardiogram for LVEF assessment. We will optimize blood pressure management with metoprolol and losartan.
[2019-02-25] MEDS: COZAAR PO SCH (15:30)
[2019-02-25] MEDS: LOPRESSOR PO SCH (21:25)
[2019-02-26] MEDS: PERCOCET 5/325 PO PRN ×2 (05:23→14:58)
[2019-02-26 05:42] LABS: Hematocrit 24.7 % (30.3-42.9); Hemoglobin 8.8 gm/dl (10.1-14.3); Mean Corpuscular HGB Conc 36 % (30-34); Mean Corpuscular Volume 94 fl (79-97); Platelet Count 219 K/mm3 (140-440); Red Blood Count 2.64 M/mm3 (3.65-5.03); Red Cell Distribution Width 14.4 % (13.2-15.2)
[2019-02-26 05:53] LABS: Calcium 7.9 mg/dL (8.4-10.2)
[2019-02-26 07:06] LABS: Eosinophils % (Manual) 0 % (0.0-4.3); Total Cells Counted 100
[2019-02-26 07:08] LABS: Anisocytosis Few; Platelet Estimate Consistent w Auto; Poikilocytosis Few
--- NOTE | 2019-02-26 09:52 | Progress Note ---
Assessment and Plan Generalized weakness Acute kidney injury Hyponatremia Hypertension Diabetes Mellitus Metabolic Acidosis Sepsis thought secondary to UTI NSVT on telemetry -no reoccurrence pt remained asymptomatic. TSH of 1.1 An echocardiogram revealed a normal LVEF 60-65%. Plan: Continue optimal blood pressure management with metoprolol and losartan. Otherwise conservative cardiac management for asymptomatic nonsustained ventricular tachycardia. Subjective Date of service: 02/26/19 Principal diagnosis: ARF Interval history: Patient is resting in bed comfortably. She has no complaints. No cardiac events on telemetry overnight. Objective Vital Signs Temp Pulse Resp BP Pulse Ox 02/26/19 09:01 98.8 F 98 H 16 143/75 100 02/26/19 03:31 98.9 F 70 20 144/82 100 02/25/19 23:07 98.6 F 80 18 156/84 100 02/25/19 19:35 98.4 F 85 20 145/85 98 02/25/19 19:00 89 02/25/19 16:28 74 137/73 100 02/25/19 15:30 77 137/73 02/25/19 12:36 68 162/78 100 02/25/19 12:17 71 02/25/19 10:00 98 - Physical Examination General: No Apparent Distress HEENT: Positive: PERRL Neck: Positive: trachea midline Cardiac: Positive: Reg Rate and Rhythm Lungs: Positive: Decreased Breath Sounds Neuro: Positive: Weakness - Labs and Meds CBC 02/26/19 Range/Units 04:44 WBC 13.1 H (4.5-11.0) K/mm3 RBC 2.64 L (3.65-5.03) M/mm3 Hgb 8.8 L (10.1-14.3) gm/dl Hct 24.7 L (30.3-42.9) % Plt Count 219 (140-440) K/mm3 Comprehensive Metabolic Panel 02/26/19 Range/Units 04:44 Sodium 135 L (137-145) mmol/L Potassium 3.2 L (3.6-5.0) mmol/L Chloride 105.8 (98-107) mmol/L Carbon Dioxide 18 L (22-30) mmol/L BUN 40 H (7-17) mg/dL Creatinine 1.6 H (0.7-1.2) mg/dL Glucose 136 H (65-100) mg/dL Calcium 7.9 L (8.4-10.2) mg/dL - Imaging and Cardiology EKG: image reviewed (125bpm, ST)
[2019-02-26] MEDS: SODIUM BICARBONATE PO SCH ×3 (10:05→21:53)
[2019-02-26] MEDS: COZAAR PO SCH (10:06)
[2019-02-26] MEDS: ROCEPHIN/NS 1 GM/50 ML 1 GM/50 ML BAG IV SCH (10:07)
[2019-02-26] MEDS: LOPRESSOR PO SCH ×2 (10:07→21:53)
[2019-02-26] MEDS: COLACE PO SCH ×2 (10:07→21:53)
[2019-02-26] MEDS: HEPARIN SUB-Q SCH ×2 (10:08→21:53)
[2019-02-26] MEDS: SODIUM CHLORIDE FLUSH SYRINGE 10 ML IV SCH ×2 (10:18→21:53)
[2019-02-26] MEDS: NACL 0.9% 1000 ML 1,000 ML IV SCH (10:19)
--- NOTE | 2019-02-26 11:49 | Progress Note ---
Hospitalist Physical - Constitutional Vitals: Temp Pulse Resp BP Pulse Ox 98.8 F 86 16 143/75 100 02/26/19 09:01 02/26/19 10:07 02/26/19 09:01 02/26/19 10:07 02/26/19 10:16 General appearance: Present: no acute distress Results - Labs CBC & Chem 7: 02/26/19 04:44 02/26/19 04:44 Labs: Laboratory Last Values WBC 13.1 K/mm3 (4.5-11.0) H 02/26/19 04:44 RBC 2.64 M/mm3 (3.65-5.03) L 02/26/19 04:44 Hgb 8.8 gm/dl (10.1-14.3) L 02/26/19 04:44 Hct 24.7 % (30.3-42.9) L 02/26/19 04:44 MCV 94 fl (79-97) 02/26/19 04:44 MCH 33 pg (28-32) H 02/26/19 04:44 MCHC 36 % (30-34) H 02/26/19 04:44 RDW 14.4 % (13.2-15.2) 02/26/19 04:44 Plt Count 219 K/mm3 (140-440) 02/26/19 04:44 Add Manual Diff Complete 02/26/19 04:44 Total Counted 100 02/26/19 04:44 Seg Neutrophils % [employer] 02/23/19 03:41 Seg Neuts % (Manual) 91.0 % (40.0-70.0) H 02/26/19 04:44 0 % 02/26/19 04:44 7.0 % (13.4-35.0) L 02/26/19 04:44 Reactive Lymphs % (Man) 0 % 02/26/19 04:44 1.0 % (0.0-7.3) 02/26/19 04:44 0 % (0.0-4.3) 02/26/19 04:44 1.0 % (0.0-1.8) 02/26/19 04:44 0 % 02/26/19 04:44 0 % 02/26/19 04:44 0 % 02/26/19 04:44 0 % 02/26/19 04:44 Nucleated RBC % Not Reportable 02/26/19 04:44 Seg Neutrophils # Man 11.9 K/mm3 (1.8-7.7) H 02/26/19 04:44 Band Neutrophils # 0.0 K/mm3 02/26/19 04:44 0.9 K/mm3 (1.2-5.4) L 02/26/19 04:44 Abs React Lymphs (Man) 0.0 K/mm3 02/26/19 04:44 0.1 K/mm3 (0.0-0.8) 02/26/19 04:44 0.0 K/mm3 (0.0-0.4) 02/26/19 04:44 0.1 K/mm3 (0.0-0.1) 02/26/19 04:44 0.0 K/mm3 02/26/19 04:44 0.0 K/mm3 02/26/19 04:44 0.0 K/mm3 02/26/19 04:44 Blast Cells # 0.0 K/mm3 02/26/19 04:44 WBC Morphology Not Reportable 02/26/19 04:44 Hypersegmented Neuts Not Reportable 02/26/19 04:44 Hyposegmented Neuts Not Reportable 02/26/19 04:44 Hypogranular Neuts Not Reportable 02/26/19 04:44 Not Reportable 02/26/19 04:44 Not Reportable 02/26/19 04:44 Not Reportable 02/26/19 04:44 Not Reportable 02/26/19 04:44 Not Reportable 02/26/19 04:44 Not Reportable 02/26/19 04:44 Consistent w auto 02/26/19 04:44 Not Reportable 02/26/19 04:44 Plt Clumps, EDTA Not Reportable 02/26/19 04:44 Not Reportable 02/26/19 04:44 Not Reportable 02/26/19 04:44 Not Reportable 02/26/19 04:44 Plt Morphology Comment Not Reportable 02/26/19 04:44 RBC Morphology Not Reportable 02/26/19 04:44 Dimorphic RBCs Not Reportable 02/26/19 04:44 Not Reportable 02/26/19 04:44 Not Reportable 02/26/19 04:44 Few 02/26/19 04:44 Few 02/26/19 04:44 Not Reportable 02/26/19 04:44 Not Reportable 02/26/19 04:44 Not Reportable 02/26/19 04:44 Not Reportable 02/26/19 04:44 Not Reportable 02/26/19 04:44 Not Reportable 02/26/19 04:44 Not Reportable 02/26/19 04:44 Not Reportable 02/26/19 04:44 Not Reportable 02/26/19 04:44 Not Reportable 02/26/19 04:44 Not Reportable 02/26/19 04:44 Not Reportable 02/26/19 04:44 Not Reportable 02/26/19 04:44 Not Reportable 02/26/19 04:44 Not Reportable 02/26/19 04:44 Acanthocytes (Spur) Not Reportable 02/26/19 04:44 Rouleaux Not Reportable 02/26/19 04:44 Not Reportable 02/26/19 04:44 Not Reportable 02/26/19 04:44 Not Reportable 02/26/19 04:44 Not Reportable 02/26/19 04:44 Hem Pathologist Commnt No 02/26/19 04:44 Sodium 135 mmol/L (137-145) L 02/26/19 04:44 Potassium 3.2 mmol/L (3.6-5.0) L 02/26/19 04:44 Chloride 105.8 mmol/L (98-107) 02/26/19 04:44 Carbon Dioxide 18 mmol/L (22-30) L 02/26/19 04:44 14 mmol/L 02/26/19 04:44 BUN 40 mg/dL (7-17) H 02/26/19 04:44 1.6 mg/dL (0.7-1.2) H 02/26/19 04:44 Estimated GFR 40 ml/min 02/26/19 04:44 25 % 02/26/19 04:44 Glucose 136 mg/dL (65-100) H 02/26/19 04:44 POC Glucose 121 (70-105) H 02/26/19 07:23 5.4 % (4-6) 02/21/19 20:23 284 Mosm/kg 02/22/19 09:11 Lactic Acid 1.10 mmol/L (0.7-2.0) 02/22/19 06:57 Calcium 7.9 mg/dL (8.4-10.2) L 02/26/19 04:44 Phosphorus 3.60 mg/dL (2.5-4.5) 02/24/19 03:37 Magnesium 1.70 mg/dL (1.7-2.3) 02/25/19 16:19 0.40 mg/dL (0.1-1.2) 02/21/19 18:02 AST 33 units/L (5-40) 02/21/19 18:02 ALT 28 units/L (7-56) 02/21/19 18:02 111 units/L (35-129) 02/21/19 18:02 < 0.010 ng/mL (0.00-0.029) 02/21/19 18:02 6.4 g/dL (6.3-8.2) 02/21/19 18:02 2.6 g/dL (3.9-5) L 02/21/19 18:02 0.7 % 02/21/19 18:02 TSH 1.140 mlU/mL (0.270-4.200) 02/25/19 16:19 Free T4 0.60 ng/dL (0.76-1.46) L 02/25/19 16:19 3.8 ug/dL (4.0-12.0) L 02/26/19 04:44 Yellow (Yellow) 02/23/19 16:30 Turbid (Clear) 02/23/19 16:30 6.0 (5.0-7.0) 02/23/19 16:30 Ur Specific [place] 1.010 (1.003-1.030) 02/23/19 16:30 100 mg/dl mg/dL (Negative) 02/23/19 16:30 50 mg/dL (Negative) 02/23/19 16:30 Tr mg/dL (Negative) 02/23/19 16:30 Lg (Negative) 02/23/19 16:30 Neg (Negative) 02/23/19 16:30 Neg (Negative) 02/23/19 16:30 < 2.0 mg/dL (<2.0) 02/23/19 16:30 Ur Leukocyte Esterase Lg (Negative) 02/23/19 16:30 > 182.0 /HPF (0.0-6.0) H 02/23/19 16:30 > 182.0 /HPF (0.0-6.0) 02/23/19 16:30 3+ /HPF (Negative) 02/23/19 16:30 3+ /HPF 02/21/19 18:54 Few /HPF 02/23/19 16:30 3+ /HPF 02/21/19 18:54 None seen (None Seen) 02/23/19 05:00 338 Mosm/kg 02/23/19 05:00 1150 ml 02/24/19 14:58 45.0 mg/dL (0.1-20.0) H 02/24/19 14:58 Ur Creatinine 24 Hour 0.5 (0.8-2.8) L 02/24/19 14:58 Height (in) 65.0 inches 02/23/19 04:43 Weight (lb) 106.2 lbs 02/23/19 04:43 12 02/23/19 04:43 Protein/Creatinin Ratio 5.19 02/23/19 16:30 93 mmol/L 02/23/19 05:00 188 mg/dL (5-11.8) H 02/23/19 16:30 Hepatitis A IgM Ab Non-reactive (NonReactive) 02/23/19 13:04 Hep Bs Antigen Non-reactive (Negative) 02/23/19 13:04 Hep B Core IgM Ab Non-reactive (NonReactive) 02/23/19 13:04 Non-reactive (NonReactive) 02/23/19 13:04 HIV 1&2 Antibody Rapid Non react (Non React) 02/23/19 13:04 Non react (Non React) 02/23/19 13:04 Active Medications - Current Medications Current Medications: Generic Name Dose Route Start Last Admin Trade Name Freq PRN Reason Stop Dose Admin Acetaminophen 650 mg 02/21/19 20:15 02/22/19 13:15 Tylenol PO 650 mg Q4H PRN Administration Pain MILD(1-3)/Fever >100.5/AARON Albuterol 2.5 mg 02/21/19 20:15 Proventil IH Q3HRT PRN Shortness Of Breath Docusate Sodium 100 mg 02/21/19 22:00 08/09/19 10:07 Colace PO 100 mg BID MATT Administration Heparin Sodium (Porcine) 5,000 unit 02/21/19 22:00 02/26/19 10:08 Heparin SUB-Q 5,000 unit Q12HR MATT Administration Ceftriaxone Sodium 1 gm in 50 mls @ 100 mls/hr 02/24/19 12:00 02/26/19 10:07 Rocephin/Ns 1 Gm/50 Ml IV 03/07/19 23:59 100 mls/hr Q24HR MATT Administration Protocol Sodium Chloride 1,000 mls @ 50 mls/hr 02/25/19 10:00 02/26/19 10:19 Nacl 0.9% 1000 Ml IV 50 mls/hr DIRECT MATT Administration Losartan Potassium 50 mg 02/25/19 15:00 02/26/19 10:06 Cozaar PO 50 mg QDAY MATT Administration Metoclopramide HCl 10 mg 02/21/19 20:15 Reglan IV Q6H PRN Nausea And Vomiting Metoprolol Tartrate 50 mg 02/25/19 22:00 02/26/19 10:07 Lopressor PO 50 mg BID MATT Administration Morphine Sulfate 1 mg 02/22/19 14:31 02/23/19 22:07 Morphine IV 1 mg Q4H PRN Administration Pain , Severe (7-10) Ondansetron HCl 4 mg 02/21/19 20:15 02/22/19 14:53 Zofran IV 4 mg Q8H PRN Administration Nausea And Vomiting Oxycodone/Acetaminophen 1 tab 02/21/19 20:15 02/26/19 05:23 Percocet 5/325 PO 1 tab Q6H PRN Administration Pain, Moderate (4-6) Sodium Bicarbonate 1,300 mg 02/24/19 20:00 02/26/19 10:05 Sodium Bicarbonate PO 1,300 mg TID MATT Administration Sodium Chloride 10 ml 02/21/19 22:00 02/26/19 10:18 Sodium Chloride Flush Syringe 10 Ml IV 10 ml BID MATT Administration Sodium Chloride 10 ml 02/21/19 20:15 Sodium Chloride Flush Syringe 10 Ml IV PRN PRN LINE FLUSH Nutrition/Malnutrition Assess - Dietary Evaluation Nutrition/Malnutrition Findings: Nutrition Notes Start: 02/22/19 12:09 Freq: Status: Active Protocol: Document 02/24/19 15:17 RM (Rec: 02/24/19 15:30 RM [id number]) Nutrition Notes Initial or Follow up Reassessment Current Diagnosis Acute Kidney Injury,Diabetes Other Pertinent Diagnosis chronic pain Current Diet Pureed Labs/Tests Reviewed Pertinent Medications Zofran Height 5 ft 5 in Weight 48.2 kg Usual Body Weight 58.18 kg [place] Body Weight (kg) 56.81 BMI 17.6 Weight change and time frame 17% wt loss X 1 month and 1 week Subjective/Other Information Pt and pt daughter in room at time of visit. Pt daughter stated that [employer] pt ate 3 small meals daily. Pt was being fed her first meal here at time of visit. Pt daughter stated that pt UBW was 125-130 lbs on January 19. Note temporal wasting. Burn Absent Trauma Absent Minimum of two criteria Yes Energy Intake (non-severe) <75% Estimated Energy Requirement >7 days Interpretation of Weight Loss (severe) >7.5% in 3 months Muscle Mass Mild Depletion (non-severe) #2 Nutrition Diagnosis Malnutrition Etiology decreased appetite As Evidenced by Signs and Symptoms temporal wasting, BMI 17.7, pt daughter statement that [employer] pt ate 3 small meals daily, 17 % wt loss X 1 month and 1 week #1 Nutrition Diagnosis Inadequate oral intake Diagnosis Progress(for reassessment Continues documentation) Is patient on ventilator? No Is Patient Ambulatory and/or Out of Bed No REE-([facility]-confined to bed) 1256.820 Kcal/Kg value to use for calculation 36 Approximate Energy Requirements Using 1735 kcal/Kg Calculation Used for Recommendations Kcal/kg Additional Notes FLUID: 1 mL/kcal PRO: 58-72g (1.2-1.5g/kg) Nutrition Intervention Change Diet Order: Continue current Add Supplement/Snack (indicate name/kcal Glucerna 1 daily /protein ) Provides kCal: 240 Provides Protein (gm) 10 Goal #1 Meet at least 75% of calorie and protein needs via PO and ONS intakes Anticipated Discharge Needs: Pureed diet Follow-Up By: 02/26/19 Additional Comments Follow for PO and ONS intakes
--- NOTE | 2019-02-26 11:54 | Progress Note ---
Assessment and Plan Acute kidney injury, likely prerenal azotemia Hyponatremia, likely hypovolemic Urosepsis Hypertension Diabetes Mellitus Metabolic Acidosis - Renal function reviewed. Serum creatinine trend down to 1.6 today, with good UOP of 2100 ml, yesterday's creatinine was was 2.4 - Urine lytes reviewed. Urine eosinophils- none seen - Ordered GN work-up- in progress. So far Hep panel and HIV are negative - Renal US showed- Echogenic kidneys due to renal parenchymal disease. Left renal cysts. - Metabolic Acidosis-On Sodium Bicarbonate 1300 mg po TID - On NS at 50 ml/hr - Strict I&O monitoring - Obtain daily weights - Renally dose medications - Avoid nephrotoxic agents - Remove sanders catheter ordered - Continue to monitor renal function closely Subjective Date of service: 02/26/19 Principal diagnosis: ARF Interval history: Patient seen lying in bed. Awake and alert. No family at bedside. Objective - Vital Signs Vital signs: Vital Signs - 12hr 02/26/19 02/26/19 02/26/19 03:31 09:01 10:06 Temperature 98.9 F 98.8 F Pulse Rate 70 98 H 88 Respiratory 20 16 Rate Blood Pressure 144/82 143/75 143/75 O2 Sat by Pulse 100 100 Oximetry 02/26/19 02/26/19 10:07 10:16 Temperature Pulse Rate 86 Respiratory Rate Blood Pressure 143/75 O2 Sat by Pulse 100 Oximetry - General Appearance General appearance: well-developed, fatigue EENT: ATNC, PERRL, hearing intact, vision intact Neck: no JVD, supple Respiratory: Present: Clear to Ascultation Cardiology: S1S2 Gastrointestinal: normoactive bowel sounds Integumentary: warm and dry Neurologic: other (Awake and alert) Musculoskeletal: other (No edema) - Lab 02/26/19 04:44 02/26/19 04:44 Most recent lab results Calcium 7.9 mg/dL (8.4-10.2) L 02/26/19 04:44 Phosphorus 3.60 mg/dL (2.5-4.5) 02/24/19 03:37 Magnesium 1.70 mg/dL (1.7-2.3) 02/25/19 16:19 45.0 mg/dL (0.1-20.0) H 02/24/19 14:58 93 mmol/L 02/23/19 05:00 188 mg/dL (5-11.8) H 02/23/19 16:30 Medications & Allergies - Medications Allergies/Adverse Reactions: Allergies Sulfa (Sulfonamide Antibiotics) Allergy (Verified 02/21/19 17:25) Unknown Active Medications: Generic Name Dose Route Start Last Admin Trade Name Freq PRN Reason Stop Dose Admin Acetaminophen 650 mg 02/21/19 20:15 02/22/19 13:15 Tylenol PO 650 mg Q4H PRN Administration Pain MILD(1-3)/Fever >100.5/AARON Albuterol 2.5 mg 02/21/19 20:15 Proventil IH Q3HRT PRN Shortness Of Breath Docusate Sodium 100 mg 02/21/19 22:00 02/26/19 10:07 Colace PO 100 mg BID MATT Administration Heparin Sodium (Porcine) 5,000 unit 02/21/19 22:00 02/26/19 10:08 Heparin SUB-Q 5,000 unit Q12HR MATT Administration Ceftriaxone Sodium 1 gm in 50 mls @ 100 mls/hr 02/24/19 12:00 02/26/19 10:07 Rocephin/Ns 1 Gm/50 Ml IV 03/07/19 23:59 100 mls/hr Q24HR MATT Administration Protocol Sodium Chloride 1,000 mls @ 50 mls/hr 02/25/19 10:00 02/26/19 10:19 Nacl 0.9% 1000 Ml IV 50 mls/hr DIRECT MATT Administration Losartan Potassium 50 mg 02/25/19 15:00 02/26/19 10:06 Cozaar PO 50 mg QDAY MATT Administration Metoclopramide HCl 10 mg 02/21/19 20:15 Reglan IV Q6H PRN Nausea And Vomiting Metoprolol Tartrate 50 mg 02/25/19 22:00 02/26/19 10:07 Lopressor PO 50 mg BID MATT Administration Morphine Sulfate 1 mg 02/22/19 14:31 02/23/19 22:07 Morphine IV 1 mg Q4H PRN Administration Pain , Severe (7-10) Ondansetron HCl 4 mg 02/21/19 20:15 02/22/19 14:53 Zofran IV 4 mg Q8H PRN Administration Nausea And Vomiting Oxycodone/Acetaminophen 1 tab 02/21/19 20:15 02/26/19 05:23 Percocet 5/325 PO 1 tab Q6H PRN Administration Pain, Moderate (4-6) Sodium Bicarbonate 1,300 mg 02/24/19 20:00 02/26/19 10:05 Sodium Bicarbonate PO 1,300 mg TID MATT Administration Sodium Chloride 10 ml 02/21/19 22:00 02/26/19 10:18 Sodium Chloride Flush Syringe 10 Ml IV 10 ml BID MATT Administration Sodium Chloride 10 ml 02/21/19 20:15 Sodium Chloride Flush Syringe 10 Ml IV PRN PRN LINE FLUSH
[2019-02-26] MEDS ORDERED: K-DUR PO ONE (12:22)
[2019-02-26 22:30] LABS: Albumin 2.3 g/dL (3.8-4.8); Gamma Globulin 0.8 g/dL (0.8-1.7)
[2019-02-27] MEDS: PERCOCET 5/325 PO PRN (03:07)
[2019-02-27] MEDS: NACL 0.9% 1000 ML 1,000 ML IV SCH (06:05)
[2019-02-27 07:47] LABS: Calcium 8.2 mg/dL (8.4-10.2)
[2019-02-27 08:03] LABS: Hematocrit 26.3 % (30.3-42.9); Hemoglobin 8.8 gm/dl (10.1-14.3); Mean Corpuscular HGB Conc 34 % (30-34); Mean Corpuscular Volume 96 fl (79-97); Platelet Count 248 K/mm3 (140-440); Red Blood Count 2.74 M/mm3 (3.65-5.03)
[2019-02-27] MEDS: SODIUM BICARBONATE PO SCH ×2 (08:56→14:54)
[2019-02-27 09:09] LABS: Basophils % (Manual) 0 % (0.0-1.8); Total Cells Counted 100
[2019-02-27 09:10] LABS: Hypochromasia 1+; Ovalocytes Few; Platelet Estimate Consistent w Auto
--- NOTE | 2019-02-27 10:13 | Progress Note ---
Assessment and Plan 1. Status post non-sustained ventricular tachycardia. 2. Sepsis secondary to urinary tract infection 3. Essential hypertension 4. Type 2 diabetes mellitus Plan Patient is currently stable continue treatment. Normal left ventricular ejection fraction. Subjective Date of service: 02/27/19 Principal diagnosis: ARF Interval history: No cardiac complains Objective Vital Signs Temp Pulse Resp BP Pulse Ox 02/27/19 08:35 95 02/27/19 08:33 98.4 F 94 H 16 145/75 99 02/27/19 03:25 98.0 F 74 18 153/82 98 02/27/19 00:31 77 02/26/19 23:31 98.6 F 84 20 151/88 100 02/26/19 22:00 18 02/26/19 20:03 99 02/26/19 19:22 98.9 F 90 18 133/80 98 02/26/19 16:53 98.0 F 118 H 18 105/77 99 02/26/19 16:43 98.8 F 78 20 139/80 99 02/26/19 14:34 78 02/26/19 13:42 97.6 F 89 18 121/47 96 02/26/19 13:39 98.3 F 83 16 152/77 100 02/26/19 10:16 100 - Physical Examination General: No Apparent Distress HEENT: Positive: PERRL Neck: Positive: trachea midline Cardiac: Positive: Regular Rate, S1/S2, PMI, Laterally Displaced Lungs: Positive: clear to auscultation, No Wheeze, Rales, Rhonchi Neuro: Positive: Weakness Abdomen: Positive: Unremarkable, Active Bowel Sounds Extremities: Absent: edema - Labs and Meds CBC 02/27/19 Range/Units 06:55 WBC 14.0 H (4.5-11.0) K/mm3 RBC 2.74 L (3.65-5.03) M/mm3 Hgb 8.8 L (10.1-14.3) gm/dl Hct 26.3 L (30.3-42.9) % Plt Count 248 (140-440) K/mm3 Comprehensive Metabolic Panel 02/23/19 02/27/19 Range/Units 13:04 06:55 Sodium 138 (137-145) mmol/L Potassium 3.7 (3.6-5.0) mmol/L Chloride 106.2 (98-107) mmol/L Carbon Dioxide 21 L (22-30) mmol/L BUN 28 H (7-17) mg/dL Creatinine 1.2 (0.7-1.2) mg/dL Glucose 154 H (65-100) mg/dL Calcium 8.2 L (8.4-10.2) mg/dL Albumin 2.3 L (3.8-4.8) g/dL - Imaging and Cardiology EKG: image reviewed (125bpm, ST) - Telemetry EKG Rhythm: Sinus Rhythm
[2019-02-27] MEDS: ROCEPHIN/NS 1 GM/50 ML 1 GM/50 ML BAG IV SCH (10:39)
[2019-02-27] MEDS: COZAAR PO SCH (10:40)
[2019-02-27] MEDS: COLACE PO SCH (10:40)
[2019-02-27] MEDS: LOPRESSOR PO SCH (10:40)
[2019-02-27] MEDS: HEPARIN SUB-Q SCH (10:46)
[2019-02-27] MEDS: SODIUM CHLORIDE FLUSH SYRINGE 10 ML IV SCH (10:46)
--- NOTE | 2019-02-27 13:46 | Discharge Summary ---
Providers - Providers Date of Admission: 02/21/19 19:55 Attending physician: PRISCILLA MAR MD 02/21/19 20:15 Consult to Physician [CONS] Routine Comment: Consulting Provider: MIMI GREEN Physician Instructions: Reason For Exam: KILLIAN, sepsis, hyponatremia 02/21/19 20:55 Consult to Wound/ET Nurse [CONS] Routine Reason For Exam: wound eval 02/21/19 21:31 Consult to Dietitian/Nutrition [CONS] Routine Physician Instructions: Reason For Exam: Reason for Consult: Malnutrition 02/22/19 07:38 Occupational Therapy Evaluate and Treat [CONS] Routine Comment: Reason For Exam: ADLs evaluation Physical Therapy Evaluation and Treat [CONS] Routine Comment: Reason For Exam: gait evaluation/ambulatory dysfunction 02/22/19 14:31 Speech Therapy Evaluation and Treat [CONS] Routine Reason For Exam: dysphagia 02/24/19 10:42 Consult to Physician [CONS] Routine Comment: Consulting Provider: CELINE NICOLE Physician Instructions: Reason For Exam: bacteremia 02/24/19 10:44 Consult to Wound/ET Nurse [CONS] Routine Reason For Exam: wound eval 02/24/19 12:05 Consult to Physician [CONS] Routine Comment: Consulting Provider: CELINE NICOLE Physician Instructions: Reason For Exam: bacteremia 02/25/19 08:54 Consult to Physician [CONS] Routine Comment: Consulting Provider: LISA MAZARIEGOS Physician Instructions: Reason For Exam: 7 beats of vtach Primary care physician: [facility] MD ELIS Hospitalization Condition: Stable Disposition: DC-30 STILL A PATIENT Exam - Constitutional Vitals: Temp Pulse Resp BP Pulse Ox 98.4 F 94 H 18 145/75 95 02/27/19 08:33 02/27/19 10:40 02/27/19 10:00 02/27/19 10:40 02/27/19 08:35 Plan Follow up with: ASTON FAUSTIN MD [Primary Care Provider] - 3-5 Days Prescriptions: Losartan [Cozaar] 50 mg PO QDAY #30 tablet oxyCODONE /ACETAMINOPHEN [Percocet 5/325 mg] 1 tab PO Q6H PRN #20 tablet PRN Reason: Pain, Moderate (4-6)
[2019-02-27 15:28] VITALS: BP 143/77
[2019-02-27] MEDS ORDERED: IBUPROFEN PO SCH (16:00)
--- NOTE | 2019-02-27 16:00 | Progress Note ---
Assessment and Plan Acute kidney injury, likely prerenal azotemia Hyponatremia, likely hypovolemic Urosepsis Hypertension Diabetes Mellitus Metabolic Acidosis - Renal function reviewed. Serum creatinine trending down. - Urine lytes reviewed. Urine eosinophils- none seen - Ordered GN work-up- in progress. So far Hep panel and HIV are negative - Renal US showed- Echogenic kidneys due to renal parenchymal disease. Left renal cysts. - Metabolic Acidosis-On Sodium Bicarbonate 1300 mg po TID - On NS at 50 ml/hr - Strict I&O monitoring - Obtain daily weights - Renally dose medications - Avoid nephrotoxic agents - Remove sanders catheter ordered - Continue to monitor renal function closely Renal Parameters improving. Will sign off at this time. Subjective Date of service: 02/27/19 Principal diagnosis: ARF Interval history: making urine. Objective - Exam Narrative Exam: General appearance: well-developed, fatigue EENT: ATNC, PERRL, hearing intact, vision intact Neck: no JVD, supple Respiratory: Present: Clear to Ascultation Cardiology: S1S2 Gastrointestinal: normoactive bowel sounds Integumentary: warm and dry Neurologic: other (Awake and alert) Musculoskeletal: other (No edema) - Vital Signs Vital signs: Vital Signs - 12hr 02/27/19 02/27/19 02/27/19 08:33 08:35 10:00 Temperature 98.4 F Pulse Rate 94 H Respiratory 16 18 Rate Blood Pressure 145/75 O2 Sat by Pulse 99 95 Oximetry 02/27/19 02/27/19 10:40 11:57 Temperature 98.4 F Pulse Rate 94 H 76 Respiratory 16 Rate Blood Pressure 145/75 143/77 O2 Sat by Pulse 100 Oximetry - Lab 02/27/19 06:55 02/27/19 06:55 Most recent lab results Calcium 8.2 mg/dL (8.4-10.2) L 02/27/19 06:55 Phosphorus 3.60 mg/dL (2.5-4.5) 02/24/19 03:37 Magnesium 1.70 mg/dL (1.7-2.3) 02/25/19 16:19 45.0 mg/dL (0.1-20.0) H 02/24/19 14:58 93 mmol/L 02/23/19 05:00 188 mg/dL (5-11.8) H 02/23/19 16:30 Medications & Allergies - Medications Allergies/Adverse Reactions: Allergies Sulfa (Sulfonamide Antibiotics) Allergy (Verified 02/21/19 17:25) Unknown Home Medications: Home Medications Medication Instructions Recorded Confirmed Last Taken Type AtorvaSTATin [Lipitor] 10 mg PO QHS 02/26/19 02/26/19 Unknown History Baclofen [Lioresal] 10 mg PO DAILY 02/26/19 02/26/19 Unknown History Ibuprofen [Motrin 800 MG tab] 800 mg PO PRN 02/26/19 02/26/19 Unknown History metFORMIN [Glucophage] 850 mg PO DAILY 02/26/19 02/26/19 Unknown History Ciprofloxacin HCl [Ciprofloxacin 750 mg PO DAILY #8 tablet 02/27/19 Unknown Rx TAB] Losartan [Cozaar] 50 mg PO QDAY #30 tablet 02/27/19 Unknown Rx oxyCODONE /ACETAMINOPHEN [Percocet 1 tab PO Q6H PRN #20 tablet 02/27/19 Unknown Rx 5/325 mg] Active Medications: Generic Name Dose Route Start Last Admin Trade Name Freq PRN Reason Stop Dose Admin Acetaminophen 650 mg 02/21/19 20:15 02/22/19 13:15 Tylenol PO 650 mg Q4H PRN Administration Pain MILD(1-3)/Fever >100.5/AARON Albuterol 2.5 mg 02/21/19 20:15 Proventil IH Q3HRT PRN Shortness Of Breath Atorvastatin Calcium 10 mg 02/27/19 22:00 Lipitor PO QHS MATT Baclofen 10 mg 02/28/19 10:00 Lioresal PO DAILY MATT Docusate Sodium 100 mg 02/21/19 22:00 02/27/19 10:40 Colace PO 100 mg BID MATT Administration Heparin Sodium (Porcine) 5,000 unit 02/21/19 22:00 02/27/19 10:46 Heparin SUB-Q 5,000 unit Q12HR MATT Administration Ceftriaxone Sodium 1 gm in 50 mls @ 100 mls/hr 02/24/19 12:00 02/27/19 10:39 Rocephin/Ns 1 Gm/50 Ml IV 03/07/19 23:59 100 mls/hr Q24HR MATT Administration Protocol Sodium Chloride 1,000 mls @ 50 mls/hr 02/25/19 10:00 02/27/19 06:05 Nacl 0.9% 1000 Ml IV 50 mls/hr DIRECT MATT Administration Ibuprofen 800 mg 02/27/19 16:00 Ibuprofen PO PRN MATT Losartan Potassium 50 mg 02/25/19 15:00 02/27/19 10:40 Cozaar PO 50 mg QDAY MATT Administration Metformin HCl 850 mg 02/28/19 10:00 Glucophage PO DAILY MATT Metoclopramide HCl 10 mg 02/21/19 20:15 Reglan IV Q6H PRN Nausea And Vomiting Metoprolol Tartrate 50 mg 02/25/19 22:00 02/27/19 10:40 Lopressor PO 50 mg BID MATT Administration Morphine Sulfate 1 mg 02/22/19 14:31 02/23/19 22:07 Morphine IV 1 mg Q4H PRN Administration Pain , Severe (7-10) Ondansetron HCl 4 mg 02/21/19 20:15 02/22/19 14:53 Zofran IV 4 mg Q8H PRN Administration Nausea And Vomiting Oxycodone/Acetaminophen 1 tab 02/21/19 20:15 02/27/19 03:07 Percocet 5/325 PO 1 tab Q6H PRN Administration Pain, Moderate (4-6) Sodium Bicarbonate 1,300 mg 02/24/19 20:00 02/27/19 14:54 Sodium Bicarbonate PO 1,300 mg TID MATT Administration Sodium Chloride 10 ml 02/21/19 22:00 02/27/19 10:46 Sodium Chloride Flush Syringe 10 Ml IV 10 ml BID MATT Administration Sodium Chloride 10 ml 02/21/19 20:15 Sodium Chloride Flush Syringe 10 Ml IV PRN PRN LINE FLUSH
[2019-02-28] MEDS ORDERED: LIORESAL PO SCH (10:00)
[2019-02-28] MEDS ORDERED: GLUCOPHAGE PO SCH (10:00)
[2019-03-01 16:51] LABS: Myeloperoxidase Antibody <1.0 AI (<1.0)
[2019-03-02 21:45] LABS: ANA Screen, IFA Negative (Negative)
== END 2019-02-27 17:24 | disposition home health service (06) | DRG 871 ==
LOC: ED 17:22 → 4A 19:55
PROVIDERS: ADMIT Internal Medicine; ATTEND Internal Medicine
DX: A41.51 Sepsis due to Escherichia coli [E. coli] (principal); L89.153 Pressure ulcer of sacral region, stage 3; E43 Unspecified severe protein-calorie malnutrition; R53.2 Functional quadriplegia; N17.0 Acute kidney failure with tubular necrosis; E87.1 Hypo-osmolality and hyponatremia; Z68.1 Body mass index [BMI] 19.9 or less, adult; E87.2 Acidosis; I47.1 Supraventricular tachycardia; N39.0 Urinary tract infection, site not specified; G89.29 Other chronic pain; M54.9 Dorsalgia, unspecified; F17.210 Nicotine dependence, cigarettes, uncomplicated; R53.81 Other malaise; N28.1 Cyst of kidney, acquired; I12.9 Hypertensive chronic kidney disease with stage 1 through stage 4 chronic kidney disease, or unspecified chronic kidney disease; N18.9 Chronic kidney disease, unspecified; E11.22 Type 2 diabetes mellitus with diabetic chronic kidney disease; R31.9 Hematuria, unspecified; Z88.2 Allergy status to sulfonamides; Z79.899 Other long term (current) drug therapy; Z71.6 Tobacco abuse counseling; Z99.3 Dependence on wheelchair; Z82.49 Family history of ischemic heart disease and other diseases of the circulatory system; Z83.3 Family history of diabetes mellitus
CPT/HCPCS: 36415; 70450; 71045; 74018; 76770; 76856; 80048; 80053; 80074; 81001; 82140; 82271; 82565; 82570; 82575; 82962; 83036; 83520; 83735; 83930; 83935; 84100; 84156; 84165; 84295; 84300; 84436; 84439; 84443; 84484; 85007; 85025; 85027; 86021; 86038; 86160; 87040; 87086; 87186; 87806; 89050; 93005; 93010; 93306; 94640; 94760; 96361; 96365; 99406; G0378; J0696; J1644; J1956; J2270; J2405; J2543; J7030

== ENCOUNTER 2019-06-15 16:05 | Emergency (ER) | payer OTHER ==
--- NOTE | 2019-06-15 16:26 | Event Note ---
ED Screening Note Date of service: 06/15/19 Time: 16:21 ED Screening Note: This is a 64 y.o. F. that presents to the ER with hematuria x 2 today. Patient daughter started her on nitrofuratoin today only 1 dose. PMH of incontinence, DM2, HTN This initial assessment/diagnostic orders/clinical plan/treatment(s) is/are subject to change based on patients health status, clinical progression and re- assessment by fellow clinical providers in the ED. Further treatment and workup at subsequent clinical providers discretion. Patient/guardian urged not to elope from the ED as their condition may be serious if not clinically assessed and managed. Initial orders include: UA
--- NOTE | 2019-06-15 16:41 | Emergency Department Report ---
ED General Adult HPI - General Chief complaint: Urogenital-Female Stated complaint: BLOOD IN URINE Time Seen by Provider: 06/15/19 16:21 Source: patient Mode of arrival: Wheelchair Limitations: No Limitations - History of Present Illness Initial comments: PT IS A 64 YO DEBILITATED AA FEMALE. SHE IS WHEELCHAIR BOUND P HAVING 2 BACK SURGERIES. SHE LOOKS OLDER THAN STATED AGE. HERE BECAUSE SHE SAW BLOOD IN HER URINE. VSS NO FEVER NO CHILLS NO BACK PAIN NO ABD PAIN NO N/V NO VAG DISCHARGE [facility] HER [facility] MACROBID THIS AM PT HAS A/C UTI - CULTURES SENT AND FAMILY KNOWS TO HAVE THE [facility] MD FOLLOW UP PT IS DEBILITATED BUT NOT TOXIC IN APPEARANCE AND IS TAKING PO SHE IS INCONTINENT AND HAS BEEN FOR YEARS. SHE HAS CHRONIC UTI'S. IN TALKING WITH DAUGHTER PT MAY BENEFIT FROM CHRONIC SUPPRESSION- SHE WILL DISCUSS WITH PCP -: Gradual, days(s) Associated Symptoms: denies other symptoms - Related Data Home Medications Medication Instructions Recorded Confirmed Last Taken AtorvaSTATin 10 mg PO QHS 02/26/19 02/26/19 Unknown Baclofen [Lioresal] 10 mg PO DAILY 02/26/19 02/26/19 Unknown Ibuprofen [Motrin 800 MG tab] 800 mg PO PRN 02/26/19 02/26/19 Unknown Previous Rx's Medication Instructions Recorded Last Taken Type Losartan [Cozaar] 50 mg PO QDAY #30 tablet 02/27/19 Unknown Rx Allergies Allergy/AdvReac Type Severity Reaction Status Date / Time Sulfa (Sulfonamide Allergy Unknown Verified 02/21/19 17:25 Antibiotics) ED Review of Systems ROS: Stated complaint: BLOOD IN URINE Other details as noted in HPI Comment: All other systems reviewed and negative ED Past Medical Hx - Past Medical History Hx Hypertension: Yes Hx Diabetes: Yes Additional medical history: DEBILITY- IN WHEELCHAIR P HAVING 2 BACK SURGERIES; THIN/FRAIL - Surgical History Past Surgical History?: Yes Additional Surgical History: back and left ankle - Family History Family history: no significant - Social History Smoking Status: Never Smoker Substance Use Type: None - Medications Home Medications: Home Medications Medication Instructions Recorded Confirmed Last Taken Type AtorvaSTATin 10 mg PO QHS 02/26/19 02/26/19 Unknown History Baclofen [Lioresal] 10 mg PO DAILY 02/26/19 02/26/19 Unknown History Ibuprofen [Motrin 800 MG tab] 800 mg PO PRN 02/26/19 02/26/19 Unknown History Losartan [Cozaar] 50 mg PO QDAY #30 tablet 02/27/19 Unknown Rx ED Physical Exam - General Limitations: No Limitations General appearance: alert, other (LOOKS OLDER THAN STATED AGE) - Head Head exam: Present: atraumatic, normocephalic - Eye Eye exam: Present: normal appearance - ENT ENT exam: Present: mucous membranes dry - Neck Neck exam: Present: normal inspection - Respiratory Respiratory exam: Present: normal lung sounds bilaterally. Absent: respiratory distress - Cardiovascular Cardiovascular Exam: Present: regular rate, normal rhythm, tachycardia. Absent: systolic murmur, diastolic murmur, rubs, gallop - GI/Abdominal GI/Abdominal exam: Present: soft, normal bowel sounds. Absent: distended, tenderness, guarding, rebound, rigid, diminished bowel sounds, hyperactive bowel sounds, hypoactive bowel sounds, organomegaly, mass, bruit, pulsatile mass, hernia - Rectal Rectal exam: Present: deferred - Extremities Exam Extremities exam: Present: normal inspection - Back Exam Back exam: Present: normal inspection. Absent: CVA tenderness (R), CVA tenderness (L) - Neurological Exam Neurological exam: Present: alert, oriented X3 - Psychiatric Psychiatric exam: Present: depressed, anxious - Skin Skin exam: Present: warm, dry, intact, normal color. Absent: rash ED Course Vital Signs 06/15/19 16:11 Temperature 98.4 F Pulse Rate 112 H Respiratory 18 Rate Blood Pressure 136/92 O2 Sat by Pulse 98 Oximetry ED Medical Decision Making - Lab Data Result diagrams: 06/15/19 16:46 06/15/19 16:46 - Medical Decision Making NS/ROCEPHIGerald UA WITH CULTURES SENT BC SENT VSS DAUGHTER ASKED THAT WE SEND RECORDS TO [place] TO DR CAZARES, LIYAH [phone] PT WAS STARTED ON MACROBID BY PCP AT [place] THIS AM SHE WILL CONTINUE THESE AT HOME AND FOLLOW UP WITH PCP Labs 06/15/19 06/15/19 06/15/19 16:46 16:46 17:48 WBC 4.9 RBC 3.73 Hgb 11.5 Hct 34.3 MCV 92 MCH 31 MCHC 34 RDW 14.1 Plt Count 374 Lymph % (Auto) 45.7 H Camp % (Auto) 12.1 H Eos % (Auto) 5.0 H Baso % (Auto) 0.7 Lymph # 2.2 Camp # 0.6 Eos # 0.2 Baso # 0.0 Seg Neutrophils % 36.5 L Seg Neutrophils # 1.8 Sodium 137 Potassium 4.7 Chloride 105.1 Carbon Dioxide 17 L Anion Gap 20 BUN 22 H Creatinine 0.9 Estimated GFR > 60 BUN/Creatinine Ratio 24 Glucose 151 H Calcium 9.0 Urine Color Red Urine Turbidity Turbid Urine pH 6.0 Ur Specific [place] 1.017 Urine Protein 100 mg/dl Urine Glucose (UA) 50 Urine Ketones Tr Urine Blood Mod Urine Nitrite Neg Urine Bilirubin Neg Urine Urobilinogen < 2.0 Ur Leukocyte Esterase Neg Urine WBC (Auto) > 182.0 H Urine RBC (Auto) > 182.0 LABS NOTED WBC NORMAL NO FEVER OR CHILLS VSS PER DAUGHTER SHE SAW HER PCP AND THEY STARTED MACROBID THIS AM BUT THE PT GOT ANXIOUS THIS AFTERNOON WHEN SHE SAW THE BLOOD SO SHE BROUGHT HER IN . UA NOTED DISCUSSED WITH PT AND FAMILY - SHE DOES NOT WANT TO BE ADMITTED. SHE HAS BEEN GIVEN NS/ ROCEPHIN URINE AND BLOOD CULTURES HAVE BEEN SENT AND ARE PENDING THE DAUGHTER KNOWS TO HAVE [facility] FOLLOW UP ON THE RESULTS OF THESE. SUGGESTED INC THE COVERAGE TO MACROBID BUT DAUGHTER STATES THAT THE ONLY MED HER MOM TOLERATES IS THE MACROBID ALLERGY TO SULFA PT HAS BEEN ENCOURAGED TO STAY WELL HYDRATED PT DC HOME AND WILL FOLLOW UP WITH [facility] IN AM. Labs 06/15/19 06/15/19 06/15/19 16:46 16:46 17:48 WBC 4.9 RBC 3.73 Hgb 11.5 Hct 34.3 MCV 92 MCH 31 MCHC 34 RDW 14.1 Plt Count 374 Lymph % (Auto) 45.7 H Camp % (Auto) 12.1 H Eos % (Auto) 5.0 H Baso % (Auto) 0.7 Lymph # 2.2 Camp # 0.6 Eos # 0.2 Baso # 0.0 Seg Neutrophils % 36.5 L Seg Neutrophils # 1.8 Sodium 137 Potassium 4.7 Chloride 105.1 Carbon Dioxide 17 L Anion Gap 20 BUN 22 H Creatinine 0.9 Estimated GFR > 60 BUN/Creatinine Ratio 24 Glucose 151 H Calcium 9.0 Urine Color Red Urine Turbidity Turbid Urine pH 6.0 Ur Specific [place] 1.017 Urine Protein 100 mg/dl Urine Glucose (UA) 50 Urine Ketones Tr Urine Blood Mod Urine Nitrite Neg Urine Bilirubin Neg Urine Urobilinogen < 2.0 Ur Leukocyte Esterase Neg Urine WBC (Auto) > 182.0 H Urine RBC (Auto) > 182.0 Vital Signs 06/15/19 06/15/19 16:11 18:30 Temperature 98.4 F 97.7 F Pulse Rate 112 H 97 H Respiratory 18 14 Rate Blood Pressure 136/92 Blood Pressure 143/80 [left arm] O2 Sat by Pulse 98 100 Oximetry - Differential Diagnosis KNOWN UTI- BEING TREATED AT [place] Critical care attestation.: If time is entered above; I have spent that time in minutes in the direct care of this critically ill patient, excluding procedure time. ED Disposition Clinical Impression: UTI (urinary tract infection) Disposition: TO HOME OR SELFCARE Is pt being admited?: No Does the pt Need Aspirin: No Condition: Stable Instructions: Urinary Tract Infection in Women (ED) Additional Instructions: HYDRATE WELL WITH WATER CONTINUE YOUR MACROBID MOTRIN OR TYLENOL FOR PAIN [facility] TO SEE IF THEY NEED TO CHANGE YOUR MEDICATIONS. CRANBERRY JUICE MAY HELP Referrals: [facility] [place] [Outside] - 3-5 Days Time of Disposition: 16:58
[2019-06-15] MEDS ORDERED: cefTRIAXone/NS 1 GM/50 ML 1 GM/50 ML BAG IV ONE (16:42)
[2019-06-15] MEDS ORDERED: SODIUM CHLORIDE 0.9% 1000 ML 1,000 ML IV ONE (16:42)
[2019-06-15 17:18] LABS: Basophils % (Auto) 0.7 % (0.0-1.8); Eosinophils # (Auto) 0.2 K/mm3 (0.0-0.4); Hematocrit 34.3 % (30.3-42.9); Hemoglobin 11.5 gm/dl (10.1-14.3); Lymphocytes # (Auto) 2.2 K/mm3 (1.2-5.4); Lymphocytes % (Auto) 45.7 % (13.4-35.0); Mean Corpuscular HGB Conc 34 % (30-34); Mean Corpuscular Volume 92 fl (79-97); Monocytes # (Auto) 0.6 K/mm3 (0.0-0.8); Monocytes % (Auto) 12.1 % (0.0-7.3); Platelet Count 374 K/mm3 (140-440); Red Blood Count 3.73 M/mm3 (3.65-5.03); Red Cell Distribution Width 14.1 % (13.2-15.2)
[2019-06-15 17:20] LABS: BUN/Creatinine Ratio 24; Blood Urea Nitrogen 22 mg/dL (7-17); Hemolysis Index 13
[2019-06-15 18:09] LABS: Bilirubin,Urine NEG (Negative); Blood,Urine MOD (Negative); Color,Urine Red (Yellow); Urobilinogen,Urine < 2.0 mg/dL (<2.0)
[2019-06-15 18:11] LABS: RBC,Urine > 182.0 /HPF (0.0-6.0); WBC,Urine > 182.0 /HPF (0.0-6.0)
[2019-06-15 18:31] VITALS: BP 143/80
== END 2019-06-15 18:33 | disposition home or self-care (01) ==
LOC: ED 16:05
DX: N39.0 Urinary tract infection, site not specified (principal); I10 Essential (primary) hypertension; E11.9 Type 2 diabetes mellitus without complications; Z98.890 Other specified postprocedural states; Z79.899 Other long term (current) drug therapy; Z88.2 Allergy status to sulfonamides
CPT/HCPCS: 36415; 80048; 81001; 85025; 87040; 87086; 96365; 99283; J0696; J7030

== ENCOUNTER 2019-12-22 10:43 | Inpatient (IN) | payer MEDICARE, OTHER ==
[2019-12-22] MEDS ORDERED: SODIUM CHLORIDE 0.9% 1000 ML 1,000 ML IV ONE ×2 (11:11→13:01)
--- NOTE | 2019-12-22 11:12 | Emergency Department Report ---
ED Female HPI - General Chief complaint: Vaginal Bleeding Stated complaint: BLOOD IN URINE/BLOOD CLOTS Time Seen by Provider: 12/22/19 11:00 Source: patient, family Mode of arrival: Wheelchair Limitations: No Limitations - History of Present Illness Initial comments: 64-year-old female with history of hypertension, diabetes, chronic back pain with bilateral lower extremity weakness (patient is wheelchair-bound), presents to the ED with vaginal bleeding and blood in urine which began earlier today. Daughter states she noticed large blood clots every time patient urinates. Patient wears an adult diaper. Patient denies abdominal pain or difficulty urinating. Daughter states she noticed patient's abdomen felt "hard" the last few days, but is better today. Daughter reports patient had blood in urine approximately one year ago. States she followed up at the [place], but nothing further was done because the bleeding had stopped. MD Complaint: vaginal bleeding, other (hematuria) -: This morning Severity: moderate Quality: other (painless) Consistency: constant Improves with: none Worsens with: urination Associated Symptoms: vaginal bleeding, hematuria - Related Data Home Medications Medication Instructions Recorded Confirmed Last Taken AtorvaSTATin 10 mg PO QHS 02/26/19 02/26/19 Unknown Baclofen [Lioresal] 10 mg PO DAILY 02/26/19 02/26/19 Unknown Ibuprofen [Motrin 800 MG tab] 800 mg PO PRN 02/26/19 02/26/19 Unknown Previous Rx's Medication Instructions Recorded Last Taken Type Losartan [Cozaar] 50 mg PO QDAY #30 tablet 02/27/19 Unknown Rx Allergies Allergy/AdvReac Type Severity Reaction Status Date / Time Sulfa (Sulfonamide Allergy Unknown Verified 02/21/19 17:25 Antibiotics) ED Review of Systems ROS: Stated complaint: BLOOD IN URINE/BLOOD CLOTS Other details as noted in HPI Comment: All other systems reviewed and negative Constitutional: denies: chills, fever Gastrointestinal: denies: abdominal pain Genitourinary: hematuria, abnormal menses ED Past Medical Hx - Past Medical History Previous Medical History?: Yes Hx Hypertension: Yes Hx Diabetes: Yes Additional medical history: DEBILITY- IN WHEELCHAIR P HAVING 2 BACK SURGERIES; THIN/FRAIL - Surgical History Past Surgical History?: Yes Additional Surgical History: back and left ankle - Social History Smoking Status: Never Smoker Substance Use Type: None - Medications Home Medications: Home Medications Medication Instructions Recorded Confirmed Last Taken Type AtorvaSTATin 10 mg PO QHS 02/26/19 02/26/19 Unknown History Baclofen [Lioresal] 10 mg PO DAILY 02/26/19 02/26/19 Unknown History Ibuprofen [Motrin 800 MG tab] 800 mg PO PRN 02/26/19 02/26/19 Unknown History Losartan [Cozaar] 50 mg PO QDAY #30 tablet 02/27/19 Unknown Rx ED Physical Exam - General Limitations: No Limitations General appearance: alert, in no apparent distress - Head Head exam: Present: atraumatic, normocephalic - Eye Eye exam: Present: normal appearance, EOMI - ENT ENT exam: Present: mucous membranes moist - Neck Neck exam: Present: normal inspection - Respiratory Respiratory exam: Present: normal lung sounds bilaterally. Absent: respiratory distress - Cardiovascular Cardiovascular Exam: Present: normal rhythm, tachycardia - GI/Abdominal GI/Abdominal exam: Present: soft, tenderness (mild suprapubic). Absent: distended - External exam: Absent: bleeding Speculum exam: Present: other (no vag bleeding present) - Extremities Exam Extremities exam: Present: normal inspection - Neurological Exam Neurological exam: Present: alert, oriented X3 - Psychiatric Psychiatric exam: Present: normal affect, normal mood - Skin Skin exam: Present: warm, dry, intact, normal color ED Course Vital Signs 12/22/19 12/22/19 12/22/19 10:49 11:13 11:16 Temperature 98.9 F Pulse Rate 113 H 92 H 97 H Respiratory 18 11 L 13 Rate Blood Pressure 85/59 O2 Sat by Pulse 94 97 97 Oximetry 12/22/19 12/22/19 12/22/19 11:30 11:45 12:00 Temperature Pulse Rate 89 88 91 H Respiratory 11 L 9 L 12 Rate Blood Pressure 110/65 102/59 O2 Sat by Pulse 98 Oximetry 12/22/19 12/22/19 12/22/19 12:15 12:36 12:45 Temperature Pulse Rate 78 78 77 Respiratory 11 L 17 10 L Rate Blood Pressure 112/63 112/63 111/64 O2 Sat by Pulse 100 100 100 Oximetry 12/22/19 12/22/19 12/22/19 13:00 13:15 13:30 Temperature Pulse Rate 76 83 79 Respiratory 12 15 12 Rate Blood Pressure 114/68 117/68 112/70 O2 Sat by Pulse 100 98 98 Oximetry 12/22/19 12/22/19 12/22/19 13:45 14:00 14:15 Temperature Pulse Rate 78 72 75 Respiratory 11 L 10 L 13 Rate Blood Pressure 115/67 122/69 122/65 O2 Sat by Pulse 100 84 Oximetry - Consultations Consultation #1: 12/22/19 14:09 Spoke w/ Dr Lujan, urologist, regarding hematuria. States since no kidney stone present on CT, no need for emergent cystoscopy. Treat UTI. Pt can f/u as an outpatient for cystoscopy. 12/22/19 15:20 ED Medical Decision Making - Lab Data Result diagrams: 12/22/19 11:23 12/22/19 11:23 - EKG Data -: EKG Interpreted by Me EKG shows normal: sinus rhythm, axis, intervals, QRS complexes, ST-T waves Rate: normal - EKG Data Interpretation: nonspecific ST-T wave brittney - Radiology Data Radiology results: report reviewed, image reviewed - Medical Decision Making 64 yo F w/ hemorrhagic cystitis. Gross hematuria present. Shah catheter placed here in ED. Urine shows infection, rocephin given. Pt initially tachycardic and hypotensive, responded well to fluids. Vitals now normal. Type and screen sent. Hb currently 9.5, was 11.5 in May 2019. Pt is afebrile w/ normal WBCs and lactic acid. Acute renal failure present w/ increase in BUN and Cr compared to 05/2019. CT shows no cause for hematuria. Spoke w/ urologist, states emergent cystoscopy not needed at this time, should be obtained as outpatient. Will admit to hospitalist. - Differential Diagnosis UTI, anemia, bladder mass Critical Care Time: Yes Critical care time in (mins) excluding proc time.: 35 Critical care attestation.: If time is entered above; I have spent that time in minutes in the direct care of this critically ill patient, excluding procedure time. Critical Care Time: 35 min ED Disposition Clinical Impression: UTI (urinary tract infection), Acute renal failure, Hemorrhagic cystitis, Hypotension Disposition: OP ADMIT IP TO THIS HOSP Is pt being admited?: Yes Condition: Stable
[2019-12-22 11:45] LABS: Hematocrit 28.4 % (30.3-42.9); Hemoglobin 9.5 gm/dl (10.1-14.3); Mean Corpuscular HGB Conc 33 % (30-34); Mean Corpuscular Volume 91 fl (79-97); Platelet Count 424 K/mm3 (140-440); Red Blood Count 3.11 M/mm3 (3.65-5.03); Red Cell Distribution Width 13.3 % (13.2-15.2)
[2019-12-22 11:50] LABS: INR 1.05 (0.87-1.13)
[2019-12-22 11:59] LABS: Calcium 9.3 mg/dL (8.4-10.2)
[2019-12-22 12:31] LABS: Bilirubin,Urine NEG (Negative); Blood,Urine LG (Negative); Urobilinogen,Urine < 2.0 mg/dL (<2.0)
[2019-12-22 12:32] LABS: Color,Urine Red (Yellow)
[2019-12-22 12:36] LABS: Chol/HDL Ratio 4.06 %
[2019-12-22 12:38] LABS: RBC,Urine > 182.0 /HPF (0.0-6.0); WBC,Urine > 182.0 /HPF (0.0-6.0)
[2019-12-22] MEDS ORDERED: cefTRIAXone/NS 1 GM/50 ML 1 GM/50 ML BAG IV ONE (12:45)
--- NOTE | 2019-12-22 13:00 | Cat Scan Report ---
CT of the abdomen and pelvis without contrast INDICATION: Hematuria COMPARISON: None FINDINGS: There is slight basilar atelectasis. Small left hepatic cyst may be present. The spleen, pa ncreas and gallbladder are grossly normal. Low density nodularity of the adrenal glands likely due to nonfunctioning adenomas. Right kidney is grossly normal. Left renal cysts are again seen with a few associated calcifications. There are no renal calculi. No hydronephrosis or perinephric edema. No monika iary tree dilation. No or adenopathy in the upper abdomen. CT of the pelvis shows no ureteral stones. No stone fragments seen in the bladder. No uterine or adne xal masses. There has been extensive spinal fusion. There is also extensive vascular calcification wi thout aneurysm as well as an apparent fecal impaction. No pelvic fluid or adenopathy. Appendix is see n and is normal. IMPRESSION: Incidental findings as described but no kidney stone or inflammatory process. Automated exposure control was utilized to diminish radiation dose. Signer Name: Dm Liriano MD Signed: 12/22/2019 12:56 PM Workstation Name: [id number]
[2019-12-22 13:59] LABS: Total Cells Counted 100
[2019-12-22 14:00] LABS: Basophils % (Manual) 0 % (0.0-1.8); Macrocytosis Few; Platelet Estimate Consistent w Auto
[2019-12-22] MEDS ORDERED: SODIUM CHLORIDE 0.9% 1000 ML IV SOLN IV SCH ×3 (17:45→17:50)
--- NOTE | 2019-12-22 22:24 | History and Physical Report ---
History of Present Illness Date of examination: 12/22/19 Date of admission: 12/22/19 14:11 Chief complaint: Hematuria-1 day History of present illness: 64-year-old female with history of hypertension, diabetes, chronic back pain with bilateral lower extremity weakness (patient is wheelchair-bound), presents to the ED with vaginal bleeding and blood in urine which began earlier today. Daughter states she noticed large blood clots every time patient urinates. Pablo leigh wears an adult diaper. Patient denies abdominal pain or difficulty urinating. Daughter states she noticed patient's abdomen felt "hard" the last few days, but is better today. Daughter reports patient had blood in urine approximately one year ago. States she followed up at the [facility], but nothing further was done because the bleeding had stopped. MD Complaint: vaginal bleeding, other (hematuria) -: This morning Severity: moderate\\Quality: other (painless) Consistency: constant Improves with: none Worsens with: urination Associated Symptoms: vaginal bleeding, hematuria - Related Data Home Medications Medication Instructions Recorded Confirmed Last Taken AtorvaSTATin 10 mg PO QHS 02/26/19 02/26/19 Unknown Baclofen [Lioresal] 10 mg PO DAILY 02/26/19 02/26/19 Unknown Ibuprofen [Motrin 800 MG tab] 800 mg PO PRN 02/26/19 02/26/19 Unknown Previous Rx's Medication Instructions Recorded Last Taken Type Losartan [Cozaar] 50 mg PO QDAY #30 tablet 02/27/19 Unknown Rx Allergies Allergy/AdvReac Type Severity Reaction Status Date / Time Sulfa (Sulfonamide Allergy Unknown Verified 02/21/19 17:25 Antibiotics) - Past Medical History Previous Medical History?: Yes Hx Hypertension: Yes Hx Diabetes: Yes Additional medical history: DEBILITY- IN WHEELCHAIR P HAVING 2 BACK SURGERIES; THIN/FRAIL - Surgical History Past Surgical History?: Yes Additional Surgical History: back and left ankle - Social History Smoking Status: Never Smoker Substance Use Type: None - Medications Home Medications: Home Medications Medication Instructions Recorded Confirmed Last Taken Type AtorvaSTATin 10 mg PO QHS 02/26/19 02/26/19 Unknown History Baclofen [Lioresal] 10 mg PO DAILY 02/26/19 02/26/19 Unknown History Ibuprofen [Motrin 800 MG tab] 800 mg PO PRN 02/26/19 02/26/19 Unknown History Losartan [Cozaar] 50 mg PO QDAY #30 tablet 02/27/19 Unknown Rx Review of Systems ROS: Stated complaint: BLOOD IN URINE/BLOOD CLOTS Other details as noted in HPI Comment: All other systems reviewed and negative Constitutional: denies: chills, fever Gastrointestinal: denies: abdominal pain Genitourinary: hematuria, abnormal menses Medications and Allergies Allergies Allergy/AdvReac Type Severity Reaction Status Date / Time Sulfa (Sulfonamide Allergy Unknown Verified 02/21/19 17:25 Antibiotics) Home Medications Medication Instructions Recorded Confirmed Last Taken Type AtorvaSTATin 10 mg PO QAM 02/26/19 12/22/19 Unknown History Baclofen [Lioresal] 20 mg PO Q8HR PRN 02/26/19 12/22/19 Unknown History Ibuprofen [Motrin 800 MG tab] 800 mg PO PRN 02/26/19 12/22/19 Unknown History Losartan [Cozaar] 100 mg PO QDAY 12/22/19 12/22/19 Unknown History metFORMIN 850 mg PO DAILY 12/22/19 12/22/19 Unknown History Active Meds: Active Medications Sodium Chloride (Nacl 0.9% 1000 Ml) 1,000 ml IV DIRECT MATT Last Admin: 12/22/19 17:56 Dose: 1,000 ml Documented by: Exam - Constitutional Vitals: Temp Pulse Resp BP Pulse Ox 98.8 F 80 16 106/61 98 12/22/19 19:46 12/22/19 19:46 12/22/19 19:46 12/22/19 19:46 12/22/19 19:46 General appearance: Present: no acute distress, well-nourished - EENT Eyes: Present: PERRL ENT: hearing intact, clear oral mucosa - Neck Neck: Present: supple, normal ROM - Respiratory Respiratory effort: normal Respiratory: bilateral: CTA - Cardiovascular Heart rate: 78 Rhythm: regular Heart Sounds: Present: S1 & S2. Absent: rub, click - Extremities Extremities: pulses symmetrical, No edema Peripheral Pulses: within normal limits - Abdominal General gastrointestinal: Present: soft, non-tender, non-distended, normal bowel sounds Female genitourinary: Present: normal - Rectal Rectal Exam: deferred - Integumentary Integumentary: Present: clear, warm, dry - Musculoskeletal Musculoskeletal: gait normal, strength equal bilaterally - Psychiatric Psychiatric: appropriate mood/affect, intact judgment & insight - Neurologic Neurologic: CNII-XII intact, moves all extremities - Allied Health Allied health notes reviewed: nursing, case management HEART Score - HEART Score Troponin: Troponin T 0.047 ng/mL (0.00-0.029) H 12/22/19 11:23 Results - Labs CBC & Chem 7: 12/23/19 03:50 12/23/19 03:50 Labs: Laboratory Last Values WBC 6.3 K/mm3 (4.5-11.0) 12/22/19 11:23 RBC 3.11 M/mm3 (3.65-5.03) L 12/22/19 11:23 Hgb 9.5 gm/dl (10.1-14.3) L 12/22/19 11:23 Hct 28.4 % (30.3-42.9) L 12/22/19 11:23 MCV 91 fl (79-97) 12/22/19 11:23 MCH 30 pg (28-32) 12/22/19 11:23 MCHC 33 % (30-34) 12/22/19 11:23 RDW 13.3 % (13.2-15.2) 12/22/19 11:23 Plt Count 424 K/mm3 (140-440) 12/22/19 11:23 Lymph % (Auto) Shark Biologist 12/22/19 11:23 [place] % (Auto) Shark Biologist 12/22/19 11:23 Eos % (Auto) Shark Biologist 12/22/19 11:23 Baso % (Auto) Shark Biologist 12/22/19 11:23 Lymph # Shark Biologist 12/22/19 11:23 [place] # Shark Biologist 12/22/19 11:23 Eos # Shark Biologist 12/22/19 11:23 Baso # Shark Biologist 12/22/19 11:23 Add Manual Diff Complete 12/22/19 11:23 Total Counted 100 12/22/19 11:23 Seg Neutrophils % Shark Biologist 12/22/19 11:23 Seg Neuts % (Manual) 50.0 % (40.0-70.0) 12/22/19 11:23 Band Neutrophils % 0 % 12/22/19 11:23 Lymphocytes % (Manual) 40.0 % (13.4-35.0) H 12/22/19 11:23 Reactive Lymphs % (Man) 1.0 % 12/22/19 11:23 Monocytes % (Manual) 4.0 % (0.0-7.3) 12/22/19 11:23 Eosinophils % (Manual) 3.0 % (0.0-4.3) 12/22/19 11:23 Basophils % (Manual) 0 % (0.0-1.8) 12/22/19 11:23 Metamyelocytes % 2.0 % 12/22/19 11:23 Myelocytes % 0 % 12/22/19 11:23 Promyelocytes % 0 % 12/22/19 11:23 Blast Cells % 0 % 12/22/19 11:23 Nucleated RBC % Not Reportable 12/22/19 11:23 Seg Neutrophils # Shark Biologist 12/22/19 11:23 Seg Neutrophils # Man 3.2 K/mm3 (1.8-7.7) 12/22/19 11:23 Band Neutrophils # 0.0 K/mm3 12/22/19 11:23 Lymphocytes # (Manual) 2.5 K/mm3 (1.2-5.4) 12/22/19 11:23 Abs React Lymphs (Man) 0.1 K/mm3 12/22/19 11:23 Monocytes # (Manual) 0.3 K/mm3 (0.0-0.8) 12/22/19 11:23 Eosinophils # (Manual) 0.2 K/mm3 (0.0-0.4) 12/22/19 11:23 Basophils # (Manual) 0.0 K/mm3 (0.0-0.1) 12/22/19 11:23 Metamyelocytes # 0.1 K/mm3 12/22/19 11:23 Myelocytes # 0.0 K/mm3 12/22/19 11:23 Promyelocytes # 0.0 K/mm3 12/22/19 11:23 Blast Cells # 0.0 K/mm3 12/22/19 11:23 WBC Morphology Not Reportable 12/22/19 11:23 Hypersegmented Neuts Not Reportable 12/22/19 11:23 Hyposegmented Neuts Not Reportable 12/22/19 11:23 Hypogranular Neuts Not Reportable 12/22/19 11:23 Smudge Cells Not Reportable 12/22/19 11:23 Toxic Granulation Not Reportable 12/22/19 11:23 Toxic Vacuolation Not Reportable 12/22/19 11:23 Dohle Bodies Not Reportable 12/22/19 11:23 Pelger-Huet Anomaly Not Reportable 12/22/19 11:23 Nancy Rods Not Reportable 12/22/19 11:23 Platelet Estimate Consistent w auto 12/22/19 11:23 Clumped Platelets Not Reportable 12/22/19 11:23 Plt Clumps, EDTA Not Reportable 12/22/19 11:23 Large Platelets Not Reportable 12/22/19 11:23 Giant Platelets Not Reportable 12/22/19 11:23 Platelet Satelliting Not Reportable 12/22/19 11:23 Plt Morphology Comment Not Reportable 12/22/19 11:23 RBC Morphology Not Reportable 12/22/19 11:23 Dimorphic RBCs Not Reportable 12/22/19 11:23 Polychromasia Not Reportable 12/22/19 11:23 Hypochromasia Not Reportable 12/22/19 11:23 Poikilocytosis Not Reportable 12/22/19 11:23 Anisocytosis Not Reportable 12/22/19 11:23 Microcytosis Not Reportable 12/22/19 11:23 Macrocytosis Few 12/22/19 11:23 Spherocytes Not Reportable 12/22/19 11:23 Pappenheimer Bodies Not Reportable 12/22/19 11:23 Sickle Cells Not Reportable 12/22/19 11:23 Target Cells Not Reportable 12/22/19 11:23 Tear Drop Cells Not Reportable 12/22/19 11:23 Ovalocytes Not Reportable 12/22/19 11:23 Helmet Cells Not Reportable 12/22/19 11:23 [place] Bodies Not Reportable 12/22/19 11:23 [place] Rings Not Reportable 12/22/19 11:23 [place] Cells Not Reportable 12/22/19 11:23 Bite Cells Not Reportable 12/22/19 11:23 Crenated Cell Not Reportable 12/22/19 11:23 Elliptocytes Not Reportable 12/22/19 11:23 Acanthocytes (Spur) Not Reportable 12/22/19 11:23 Rouleaux Not Reportable 12/22/19 11:23 Hemoglobin C Crystals Not Reportable 12/22/19 11:23 Schistocytes Not Reportable 12/22/19 11:23 Malaria parasites Not Reportable 12/22/19 11:23 [place] Bodies Not Reportable 12/22/19 11:23 Hem Pathologist Commnt No 12/22/19 11:23 PT 13.8 Sec. (12.2-14.9) 12/22/19 11:23 INR 1.05 (0.87-1.13) 12/22/19 11:23 Sodium 135 mmol/L (137-145) L 12/22/19 11:23 Potassium 3.9 mmol/L (3.6-5.0) 12/22/19 11:23 Chloride 105.9 mmol/L (98-107) 12/22/19 11:23 Carbon Dioxide 14 mmol/L (22-30) L 12/22/19 11:23 Anion Gap 19 mmol/L 12/22/19 11:23 BUN 49 mg/dL (7-17) H 12/22/19 11:23 Creatinine 2.4 mg/dL (0.7-1.2) H 12/22/19 11:23 Estimated GFR 25 ml/min 12/22/19 11:23 BUN/Creatinine Ratio 20 % 12/22/19 11:23 Glucose 150 mg/dL (65-100) H 12/22/19 11:23 POC Glucose 143 (70-105) H 12/22/19 11:03 Lactic Acid 1.20 mmol/L (0.7-2.0) 12/22/19 13:52 Calcium 9.3 mg/dL (8.4-10.2) 12/22/19 11:23 Troponin T 0.047 ng/mL (0.00-0.029) H 12/22/19 11:23 Triglycerides 129 mg/dL (2-149) 12/22/19 11:23 Cholesterol 130 mg/dL (50-199) 12/22/19 11:23 LDL Cholesterol Direct 82 mg/dL (50-130) 12/22/19 11:23 HDL Cholesterol 32 mg/dL (40-59) L 12/22/19 11:23 Cholesterol/HDL Ratio 4.06 % 12/22/19 11:23 Urine Color Red (Yellow) 12/22/19 11:54 Urine Turbidity Turbid (Clear) 12/22/19 11:54 Urine pH 6.0 (5.0-7.0) 12/22/19 11:54 Ur Specific [place] 1.016 (1.003-1.030) 12/22/19 11:54 Urine Protein 100 mg/dl mg/dL (Negative) 12/22/19 11:54 Urine Glucose (UA) 50 mg/dL (Negative) 12/22/19 11:54 Urine Ketones Tr mg/dL (Negative) 12/22/19 11:54 Urine Blood Lg (Negative) 12/22/19 11:54 Urine Nitrite Neg (Negative) 12/22/19 11:54 Urine Bilirubin Neg (Negative) 12/22/19 11:54 Urine Urobilinogen < 2.0 mg/dL (<2.0) 12/22/19 11:54 Ur Leukocyte Esterase Tr (Negative) 12/22/19 11:54 Urine WBC (Auto) > 182.0 /HPF (0.0-6.0) H 12/22/19 11:54 Urine RBC (Auto) > 182.0 /HPF (0.0-6.0) 12/22/19 11:54 Urine WBC Clumps 3+ /HPF 12/22/19 11:54 Blood Type O POSITIVE 12/22/19 11:23 Antibody Screen Negative 12/22/19 11:23 - Imaging and Cardiology CT scan - abdomen: report reviewed CT scan - pelvis: report reviewed Imaging and Cardiology: CT Abd/pelvis CT of the pelvis shows no ureteral stones. No stone fragments seen in the bladder. No uterine or adnexal masses. There has been extensive spinal fusion. There is also extensive vascular calcification without aneurysm as well as an apparent fecal impaction. No pelvic fluid or adenopathy. Appendix is seen and is normal. IMPRESSION: Incidental findings as described but no kidney stone or inflammatory process. Automated exposure control was utilized to diminish radiation dose. Shah/IV: Voiding Method Indwelling Catheter IV Catheter Type [Right INT / Saline Lock Forearm] Assessment and Plan Advance Directives: Yes (FC) VTE prophylaxis?: Mechanical Plan of care discussed with patient/family: Yes - Patient Problems (1) Hemorrhagic cystitis Current Visit: Yes Status: Acute Plan to address problem: Shah catheter Boland drip if hematuria persists Sec to UTI causing Hemorrhagic cystitis No renal stone oo mass (2) UTI (urinary tract infection) Current Visit: Yes Status: Acute Qualifiers: Encounter type: initial encounter Plan to address problem: On Iv rocephin (3) KILLIAN (acute kidney injury) Current Visit: Yes Status: Acute Plan to address problem: SEC TO VMN IV fluids for now (4) HTN (hypertension) Current Visit: Yes Status: Chronic Qualifiers: Hypertension type: essential hypertension Qualified Code(s): I10 - Essential (primary) hypertension Plan to address problem: Cnt antihypertensives (5) HLD (hyperlipidemia) Current Visit: Yes Status: Chronic Plan to address problem: Cont statins (6) T2DM (type 2 diabetes mellitus) Current Visit: Yes Status: Chronic Qualifiers: Diabetes mellitus manager terminal insulin use: unspecified nursing home insulin use status Plan to address problem: cont coverage (7) DVT prophylaxis Current Visit: Yes Status: Acute Plan to address problem: on scd's
[2019-12-22] MEDS ORDERED: ACETAMINOPHEN 325 MG TAB PO PRN (22:27)
[2019-12-22] MEDS ORDERED: ONDANSETRON 4 MG/2 ML INJ IV PRN (22:27)
[2019-12-22] MEDS ORDERED: MORPHINE 2 MG/1 ML INJ IV PRN (22:27)
[2019-12-22] MEDS ORDERED: HYDROmorphone 1 MG/1 ML INJ IV PRN (22:27)
[2019-12-22] MEDS: FAMOTIDINE 20 MG/2 ML INJ IV SCH (22:59)
[2019-12-23 04:13] LABS: Basophils % (Auto) 0.4 % (0.0-1.8); Eosinophils # (Auto) 0.2 K/mm3 (0.0-0.4); Eosinophils % (Auto) 2.2 % (0.0-4.3); Hematocrit 25.7 % (30.3-42.9); Hemoglobin 8.3 gm/dl (10.1-14.3); Lymphocytes # (Auto) 1.8 K/mm3 (1.2-5.4); Lymphocytes % (Auto) 20.7 % (13.4-35.0); Mean Corpuscular HGB Conc 32 % (30-34); Mean Corpuscular Volume 92 fl (79-97); Monocytes % (Auto) 11.2 % (0.0-7.3); Platelet Count 416 K/mm3 (140-440); Red Blood Count 2.81 M/mm3 (3.65-5.03); Red Cell Distribution Width 13.4 % (13.2-15.2)
[2019-12-23 04:33] LABS: Albumin 2.9 g/dL (3.9-5); BUN/Creatinine Ratio 23; Blood Urea Nitrogen 36 mg/dL (7-17); Calcium 8.6 mg/dL (8.4-10.2); Hemolysis Index 3
[2019-12-23 04:34] LABS: Alanine Aminotransferase < 5 units/L (7-56)
[2019-12-23] MEDS: SODIUM CHLORIDE 0.9% 1000 ML 1,000 ML IV SCH ×2 (05:21→19:19)
[2019-12-23] MEDS: cefTRIAXone/NS 2 GM/100 ML 2 GM/100 ML BAG IV SCH (10:38)
[2019-12-23] MEDS: FAMOTIDINE 20 MG/2 ML INJ IV SCH (10:38)
[2019-12-24] MEDS: SODIUM CHLORIDE 0.9% IRRIG SOLN 2000 ML IR SCH ×2 (01:02→10:30)
[2019-12-24] MEDS: SODIUM CHLORIDE 0.9% 1000 ML 1,000 ML IV SCH ×3 (05:26→17:19)
--- NOTE | 2019-12-24 09:03 | Progress Note ---
Assessment and Plan Day # 2 Hematuria persists Boland drip started - Patient Problems (1) Hemorrhagic cystitis Current Visit: Yes Status: Acute Plan to address problem: Shah catheter Boland drip if hematuria persists Sec to UTI causing Hemorrhagic cystitis No renal stone oo mass (2) UTI (urinary tract infection) Current Visit: Yes Status: Acute Qualifiers: Encounter type: initial encounter Plan to address problem: On Iv rocephin (3) KILLIAN (acute kidney injury) Current Visit: Yes Status: Acute Plan to address problem: SEC TO VMN IV fluids for now (4) HTN (hypertension) Current Visit: Yes Status: Chronic Qualifiers: Hypertension type: essential hypertension Qualified Code(s): I10 - Essential (primary) hypertension Plan to address problem: Cnt antihypertensives (5) HLD (hyperlipidemia) Current Visit: Yes Status: Chronic Plan to address problem: Cont statins (6) T2DM (type 2 diabetes mellitus) Current Visit: Yes Status: Chronic Qualifiers: Diabetes mellitus terminal clerk insulin use: unspecified fpc insulin use status Plan to address problem: cont coverage (7) DVT prophylaxis Current Visit: Yes Status: Acute Plan to address problem: on scd's Subjective Date of service: 12/23/19 Principal diagnosis: Hemorrhagic cystitis,KILLIAN Interval history: Sx better Objective - Constitutional Vitals: Vital Signs - 12hr 12/23/19 12/24/19 12/24/19 22:32 00:39 04:00 Temperature 98.7 F Pulse Rate 73 72 Respiratory 18 16 Rate Blood Pressure 159/82 O2 Sat by Pulse 97 Oximetry 12/24/19 12/24/19 04:01 08:13 Temperature 98.7 F 98.3 F Pulse Rate 72 80 Respiratory 16 20 Rate Blood Pressure 146/72 146/72 O2 Sat by Pulse 98 97 Oximetry General appearance: Present: no acute distress, well-nourished - EENT Eyes: PERRL, EOM intact ENT: hearing intact, clear oral mucosa Ears: bilateral: normal - Neck Neck: supple, normal ROM - Respiratory Respiratory effort: normal Respiratory: bilateral: CTA - Breasts Breasts: normal - Cardiovascular Heart rate: 78 Rhythm: regular Heart Sounds: Present: S1 & S2. Absent: gallop, rub Extremities: pulses intact, No edema, normal color, Full ROM - Gastrointestinal General gastrointestinal: Present: soft, non-tender, non-distended, normal bowel sounds - Genitourinary Female genitourinary: normal - Integumentary Integumentary: clear, warm, dry - Musculoskeletal Musculoskeletal: 1, strength equal bilaterally - Neurologic Neurologic: moves all extremities - Psychiatric Psychiatric: memory intact, appropriate mood/affect, intact judgment & insight - Labs CBC & Chem 7: 12/23/19 03:50 12/23/19 03:50 HEART Score - HEART Score Troponin: Troponin T 0.047 ng/mL (0.00-0.029) H 12/22/19 11:23
[2019-12-24] MEDS: cefTRIAXone/NS 2 GM/100 ML 2 GM/100 ML BAG IV SCH (09:52)
[2019-12-24] MEDS: FAMOTIDINE 20 MG/2 ML INJ IV SCH (09:53)
[2019-12-25 06:03] LABS: Hematocrit 24.2 % (30.3-42.9); Mean Corpuscular HGB Conc 33 % (30-34); Mean Corpuscular Volume 92 fl (79-97); Platelet Count 396 K/mm3 (140-440); Red Blood Count 2.62 M/mm3 (3.65-5.03); Red Cell Distribution Width 13.2 % (13.2-15.2)
[2019-12-25 06:19] LABS: Albumin 2.8 g/dL (3.9-5); BUN/Creatinine Ratio 12; Blood Urea Nitrogen 18 mg/dL (7-17); Calcium 8.7 mg/dL (8.4-10.2); Hemolysis Index 11
[2019-12-25 06:26] LABS: Alanine Aminotransferase < 5 units/L (7-56)
[2019-12-25 07:28] LABS: Anisocytosis 1+; Band Neutrophils # (Manual) 0.2 K/mm3; Basophils % (Manual) 0 % (0.0-1.8); Platelet Estimate Consistent w Auto; Total Cells Counted 100
[2019-12-25] MEDS: cefTRIAXone/NS 2 GM/100 ML 2 GM/100 ML BAG IV SCH (09:46)
[2019-12-25] MEDS: SODIUM CHLORIDE 0.9% 1000 ML 1,000 ML IV SCH (09:54)
[2019-12-25] MEDS ORDERED: FAMOTIDINE 20 MG TAB PO SCH (10:00)
[2019-12-25] MEDS ORDERED: HYDROcodone/ACETAMINOPHEN 5-325 MG TAB PO PRN (10:00)
[2019-12-25 16:18] VITALS: BP 157/85
--- NOTE | 2019-12-25 17:38 | Progress Note ---
Assessment and Plan Day # 2 Hematuria persists Boland drip started Day #3 hematuria decreased.[place] urine Creatine improved to 1.6 - Patient Problems (1) Hemorrhagic cystitis Current Visit: Yes Status: Acute Plan to address problem: Shah catheter Boland drip if hematuria persists Sec to UTI causing Hemorrhagic cystitis No renal stone oo mass Shah catheter to be removed as urine is clearing up. (2) UTI (urinary tract infection) Current Visit: Yes Status: Acute Qualifiers: Encounter type: initial encounter Plan to address problem: On Iv rocephin (3) KILLIAN (acute kidney injury) Current Visit: Yes Status: Acute Plan to address problem: SEC TO VMN IV fluids for now (4) HTN (hypertension) Current Visit: Yes Status: Chronic Qualifiers: Hypertension type: essential hypertension Qualified Code(s): I10 - Essential (primary) hypertension Plan to address problem: Cont antihypertensives (5) HLD (hyperlipidemia) Current Visit: Yes Status: Chronic Plan to address problem: Cont statins (6) T2DM (type 2 diabetes mellitus) Current Visit: Yes Status: Chronic Qualifiers: Diabetes mellitus long-term insulin use: unspecified long-term insulin use status Plan to address problem: cont coverage (7) DVT prophylaxis Current Visit: Yes Status: Acute Plan to address problem: on scd's Subjective Date of service: 12/24/19 Principal diagnosis: Hemorrhagic cystitis,KILLIAN Interval history: Sx better Hamaturia sparse.No fever. Objective - Constitutional Vitals: Vital Signs - 12hr 12/25/19 12/25/19 12/25/19 07:12 12:00 12:41 Temperature 98.9 F 98.3 F Pulse Rate 82 74 105 H Respiratory 20 20 Rate Blood Pressure 165/88 152/78 O2 Sat by Pulse 99 98 Oximetry 12/25/19 12/25/19 13:00 16:09 Temperature 98.0 F Pulse Rate 97 H Respiratory 18 20 Rate Blood Pressure 157/85 O2 Sat by Pulse 97 Oximetry General appearance: Present: no acute distress, well-nourished - EENT Eyes: PERRL, EOM intact ENT: hearing intact, clear oral mucosa Ears: bilateral: normal - Neck Neck: supple, normal ROM - Respiratory Respiratory effort: normal Respiratory: bilateral: CTA - Breasts Breasts: normal - Cardiovascular Heart rate: 78 Rhythm: regular Heart Sounds: Present: S1 & S2. Absent: gallop, rub Extremities: pulses intact, No edema, normal color, Full ROM - Gastrointestinal General gastrointestinal: Present: soft, non-tender, non-distended, normal bowel sounds - Genitourinary Female genitourinary: normal - Integumentary Integumentary: clear, warm, dry - Musculoskeletal Musculoskeletal: 1, strength equal bilaterally - Neurologic Neurologic: moves all extremities - Psychiatric Psychiatric: memory intact, appropriate mood/affect, intact judgment & insight - Allied health notes Allied health notes reviewed: nursing, case management - Labs CBC & Chem 7: 12/25/19 04:39 12/25/19 04:39 Labs: Abnormal lab results 12/24/19 12/24/19 12/25/19 Range/Units 17:52 20:25 04:39 RBC 2.62 L (3.65-5.03) M/mm3 Hgb 8.0 L (10.1-14.3) gm/dl Hct 24.2 L (30.3-42.9) % Seg Neuts % (Manual) 71.0 H (40.0-70.0) % Nucleated RBC % 1.0 H (0.0-0.9) % Chloride (98-107) mmol/L Carbon Dioxide (22-30) mmol/L BUN (7-17) mg/dL Creatinine (0.7-1.2) mg/dL Glucose (65-100) mg/dL POC Glucose 136 H 234 H (70-105) ALT (7-56) units/L Albumin (3.9-5) g/dL 12/25/19 12/25/19 12/25/19 Range/Units 04:39 08:34 12:42 RBC (3.65-5.03) M/mm3 Hgb (10.1-14.3) gm/dl Hct (30.3-42.9) % Seg Neuts % (Manual) (40.0-70.0) % Nucleated RBC % (0.0-0.9) % Chloride 113.4 H (98-107) mmol/L Carbon Dioxide 15 L (22-30) mmol/L BUN 18 H (7-17) mg/dL Creatinine 1.5 H (0.7-1.2) mg/dL Glucose 115 H (65-100) mg/dL POC Glucose 163 H 108 H (70-105) ALT < 5 L (7-56) units/L Albumin 2.8 L (3.9-5) g/dL 12/25/19 Range/Units 16:51 RBC (3.65-5.03) M/mm3 Hgb (10.1-14.3) gm/dl Hct (30.3-42.9) % Seg Neuts % (Manual) (40.0-70.0) % Nucleated RBC % (0.0-0.9) % Chloride (98-107) mmol/L Carbon Dioxide (22-30) mmol/L BUN (7-17) mg/dL Creatinine (0.7-1.2) mg/dL Glucose (65-100) mg/dL POC Glucose 128 H (70-105) ALT (7-56) units/L Albumin (3.9-5) g/dL HEART Score - HEART Score Troponin: Troponin T 0.047 ng/mL (0.00-0.029) H 12/22/19 11:23
--- NOTE | 2019-12-25 17:41 | Discharge Summary ---
Providers - Providers Date of Admission: 12/22/19 14:11 Date of discharge: 12/25/19 Attending physician: JAMES CALVILLO 12/22/19 22:27 Consult to Physician [CONS] Routine Comment: Consulting Provider: ALISON HORAN Physician Instructions: Reason For Exam: Hematuria 12/23/19 19:08 Consult to Physician [CONS] Routine Comment: Consulting Provider: ALISON HORAN Physician Instructions: Reason For Exam: Hematuria Primary care physician: LIYAH CAZARES MD Hospitalization Condition: Stable Hospital course: 64-year-old female with history of hypertension, diabetes, chronic back pain with bilateral lower extremity weakness (patient is wheelchair-bound), presents to the ED with vaginal bleeding and blood in urine which began earlier today. Daughter states she noticed large blood clots every time patient urinates. Patient wears an adult diaper. Patient denies abdominal pain or difficulty urinating. Daughter states she noticed patient's abdomen felt "hard" the last few days, but is better today. Daughter reports patient had blood in urine approximately one year ago. States she followed up at the [place], but nothing further was done because the bleeding had stopped. MD Complaint: vaginal bleeding, other (hematuria) -: This morning Severity: moderate\\Quality: other (painless) Consistency: constant Improves with: none Worsens with: urination Associated Symptoms: vaginal bleeding, hematuria Hematuria omproved with Boland drip and IV abx in the form of Rocephin Creatinine improved to 1.5 Day # 2 Hematuria persists Boland drip started Day #3 hematuria decreased.[place] urine Creatine improved to 1.6 - Patient Problems (1) Hemorrhagic cystitis Current Visit: Yes Status: Acute Plan to address problem: Shah catheter Boland drip if hematuria persists Sec to UTI causing Hemorrhagic cystitis No renal stone oo mass Shah catheter removed and patient did well.No blood in the urine (2) UTI (urinary tract infection) Current Visit: Yes Status: Acute Qualifiers: Encounter type: initial encounter Plan to address problem: On Iv rocephin till toay Discharge on Ceftin 250 mg po bid for 7 days (3) KILLIAN (acute kidney injury) Current Visit: Yes Status: Acute Plan to address problem: SEC TO VMN Creatinine improved to 1.5 (4) HTN (hypertension) Current Visit: Yes Status: Chronic Qualifiers: Hypertension type: essential hypertension Qualified Code(s): I10 - Essential (primary) hypertension Plan to address problem: Cont antihypertensives (5) HLD (hyperlipidemia) Current Visit: Yes Status: Chronic Plan to address problem: Cont statins (6) T2DM (type 2 diabetes mellitus) Current Visit: Yes Status: Chronic 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 insulin use status Plan to address problem: cont coverage (7) Malnutrition Moderate degree Dietary supplements Ensure BId ordered F/u with Dr Horan as outpatient Disposition: DC-01 TO HOME OR SELFCARE - Discharge Diagnoses (1) Hemorrhagic cystitis Status: Acute (2) UTI (urinary tract infection) Status: Acute Qualifiers: Encounter type: initial encounter (3) KILLIAN (acute kidney injury) Status: Acute (4) HTN (hypertension) Status: Chronic Qualifiers: Hypertension type: essential hypertension Qualified Code(s): I10 - Essential (primary) hypertension (5) HLD (hyperlipidemia) Status: Chronic (6) T2DM (type 2 diabetes mellitus) Status: Chronic Qualifiers: Diabetes mellitus halfway insulin use: 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 (7) DVT prophylaxis Status: Acute (8) Malnutrition of moderate degree Status: Acute Comment: Dietary supplements Core Measure Documentation - Palliative Care Palliative Care/ Comfort Measures: Not Applicable - Core Measures Any of the following diagnoses?: none Exam - Constitutional Vitals: Temp Pulse Resp BP Pulse Ox 98.0 F 97 H 20 157/85 97 12/25/19 16:09 12/25/19 16:09 12/25/19 16:09 12/25/19 16:09 12/25/19 16:09 General appearance: Present: no acute distress, well-nourished - EENT Eyes: Present: PERRL ENT: hearing intact, clear oral mucosa - Neck Neck: Present: supple, normal ROM - Respiratory Respiratory effort: normal Respiratory: bilateral: CTA - Cardiovascular Heart rate: 78 Rhythm: regular Heart Sounds: Present: S1 & S2. Absent: rub, click - Extremities Extremities: no ischemia, pulses intact, pulses symmetrical, No edema Peripheral Pulses: within normal limits - Abdominal General gastrointestinal: Present: soft, non-tender, non-distended, normal bowel sounds Female genitourinary: Present: normal - Rectal Rectal Exam: deferred - Integumentary Integumentary: Present: clear, warm, dry - Musculoskeletal Musculoskeletal: gait normal, strength equal bilaterally - Psychiatric Psychiatric: appropriate mood/affect, intact judgment & insight - Neurologic Neurologic: CNII-XII intact, moves all extremities - Allied Health Allied health notes reviewed: nursing, case management Plan Activity: no restrictions Diet: diabetic Follow up with: LIYAH CAZARES MD [Primary Care Provider] - 3-5 Days ALISON HORAN MD [Staff Physician] - 7 Days
== END 2019-12-25 20:24 | disposition home or self-care (01) | DRG 689 ==
LOC: ED 10:43 → 4A 14:11
PROVIDERS: ADMIT Internal Medicine; ATTEND Internal Medicine
DX: N30.81 Other cystitis with hematuria (principal); N17.0 Acute kidney failure with tubular necrosis; E44.0 Moderate protein-calorie malnutrition; I95.9 Hypotension, unspecified; I10 Essential (primary) hypertension; E11.9 Type 2 diabetes mellitus without complications; G89.29 Other chronic pain; E78.5 Hyperlipidemia, unspecified; N93.9 Abnormal uterine and vaginal bleeding, unspecified; Z88.2 Allergy status to sulfonamides; Z99.3 Dependence on wheelchair; Z68.22 Body mass index [BMI] 22.0-22.9, adult; Z79.899 Other long term (current) drug therapy
CPT/HCPCS: 36415; 74176; 80048; 80053; 80061; 81001; 82140; 82962; 83036; 84484; 85007; 85025; 85610; 86850; 86900; 86901; 87086; 93005; G0378; A4217; J0696; J7030

== ENCOUNTER 2020-03-25 18:59 | Observation (INO) | payer MEDICARE, OTHER ==
--- NOTE | 2020-03-25 20:57 | Emergency Department Report ---
ED Back Pain/Injury HPI - General Chief Complaint: Pain General Stated Complaint: BACK LEG PAIN Time Seen by Provider: 03/25/20 20:24 Source: patient, EMS Limitations: Physical Limitation - History of Present Illness Initial Comments: 65-year-old female with history of chronic back pain (nonambulatory, bedbound), urinary incontinence, presents to ED with worsening back pain. Patient states her physician took her off of her hydrocodone approximately 1 month ago. Patient states over this past month, her pain has been getting worse, to the point that she decided to come to the emergency room tonight. Patient denies any acute injury or fall. She denies any fever, nausea, vomiting. Patient reports pain always radiates down into her legs. Spoke with patient's daughter over the phone. She reports that she actually called EMS on patient because she had an episode of altered mental status. Daughter states when she walked into patient's room, patient's eyes were rolling into her head and her fists were clenched. She states patient initially was not responding to her, but then she came around before EMS arrived. Daughter denies any history of seizures in the past. States patient has some memory problems, but has never been officially diagnosed with dementia. - Related Data Previous Rx's Medication Instructions Recorded Last Taken Type AtorvaSTATin 10 mg PO QAM #30 12/25/19 Unknown Rx Baclofen [Lioresal] 20 mg PO Q8HR PRN #30 12/25/19 Unknown Rx Glimepiride 1 mg PO QDAY 30 Days #30 tablet 12/25/19 Unknown Rx Losartan [Cozaar] 100 mg PO QDAY 30 Days #30 12/25/19 Unknown Rx metFORMIN 500 mg PO BID #60 12/25/19 Unknown Rx Sodium Bicarbonate 650 mg PO BID #60 tablet 03/05/20 Unknown Rx Allergies Allergy/AdvReac Type Severity Reaction Status Date / Time Sulfa (Sulfonamide Allergy Unknown Verified 02/21/19 17:25 Antibiotics) ED Review of Systems ROS: Stated complaint: BACK LEG PAIN Other details as noted in HPI ED Past Medical Hx - Past Medical History Previous Medical History?: Yes Hx Hypertension: Yes Hx Diabetes: Yes Hx Dementia: Yes Additional medical history: DEBILITY- IN WHEELCHAIR P HAVING 2 BACK SURGERIES; THIN/FRAIL - Surgical History Past Surgical History?: Yes Additional Surgical History: back and left ankle - Social History Smoking Status: Former Smoker Substance Use Type: None - Medications Home Medications: Home Medications Medication Instructions Recorded Confirmed Last Taken Type AtorvaSTATin 10 mg PO QAM #30 12/25/19 03/05/20 Unknown Rx Baclofen [Lioresal] 20 mg PO Q8HR PRN #30 12/25/19 03/05/20 Unknown Rx Glimepiride 1 mg PO QDAY 30 Days #30 tablet 12/25/19 03/05/20 Unknown Rx Losartan [Cozaar] 100 mg PO QDAY 30 Days #30 12/25/19 03/05/20 Unknown Rx metFORMIN 500 mg PO BID #60 12/25/19 03/05/20 Unknown Rx Sodium Bicarbonate 650 mg PO BID #60 tablet 03/05/20 Unknown Rx ED Physical Exam - General Limitations: Physical Limitation ED Course Vital Signs 03/25/20 03/25/20 19:32 20:34 Temperature 97.3 F L Pulse Rate 113 H 95 H Respiratory 18 18 Rate Blood Pressure 113/83 Blood Pressure 120/86 [Left] O2 Sat by Pulse 98 100 Oximetry Critical care attestation.: If time is entered above; I have spent that time in minutes in the direct care of this critically ill patient, excluding procedure time. ED Disposition Condition: Stable Referrals: PRIMARY CARE, [Primary Care Provider] - 3-5 Days
--- NOTE | 2020-03-25 21:16 | Emergency Department Report ---
ED Altered Mental Status HPI - General Chief Complaint: Pain General Stated Complaint: BACK LEG PAIN Time Seen by Provider: 03/25/20 20:24 Source: patient, EMS Mode of arrival: Stretcher Limitations: Physical Limitation - History of Present Illness Initial Comments: 65-year-old female with history of chronic back pain (nonambulatory, bedbound), urinary incontinence, presents to ED with worsening back pain. Patient states her physician took her off of her hydrocodone approximately 1 month ago. Patient states over this past month, her pain has been getting worse, to the point that she decided to come to the emergency room tonight. Patient denies any acute injury or fall. She denies any fever, nausea, vomiting. Patient reports pain always radiates down into her legs. Spoke with patient's daughter over the phone. She reports that she actually called EMS for patient because she had an episode of altered mental status. Daughter states when she walked into patient's room, patient's eyes were rolling into her head and her fists were clenched. She states patient initially was not responding to her, but she was back to her baseline prior to EMS arrival. Daughter denies any history of seizures in the past. States patient has some memory problems, but has never been officially diagnosed with dementia. She reports patient has been off of hydrocodone for a year, not 1 month. Patient is currently taking Tylenol and Motrin for pain and using lidocaine patches as well. Daughter is concerned patient may have a UTI. MD Complaint: altered mental status -: This evening Severity: mild Context: unknown Associated Symptoms: denies: chest pain, fever/chills, headaches, nausea/vomiting, shortness of breath - Related Data Previous Rx's Medication Instructions Recorded Last Taken Type AtorvaSTATin 10 mg PO QAM #30 12/25/19 Unknown Rx Baclofen [Lioresal] 20 mg PO Q8HR PRN #30 12/25/19 Unknown Rx Glimepiride 1 mg PO QDAY 30 Days #30 tablet 12/25/19 Unknown Rx Losartan [Cozaar] 100 mg PO QDAY 30 Days #30 12/25/19 Unknown Rx metFORMIN 500 mg PO BID #60 12/25/19 Unknown Rx Sodium Bicarbonate 650 mg PO BID #60 tablet 03/05/20 Unknown Rx Allergies Allergy/AdvReac Type Severity Reaction Status Date / Time Sulfa (Sulfonamide Allergy Unknown Verified 02/21/19 17:25 Antibiotics) ED Review of Systems ROS: Stated complaint: BACK LEG PAIN Other details as noted in HPI Comment: All other systems reviewed and negative Constitutional: denies: chills, fever Respiratory: denies: shortness of breath Cardiovascular: denies: chest pain Gastrointestinal: denies: abdominal pain, vomiting, diarrhea Musculoskeletal: back pain (chronic) Neurological: denies: headache ED Past Medical Hx - Past Medical History Previous Medical History?: Yes Hx Hypertension: Yes Hx Diabetes: Yes Hx Dementia: Yes Additional medical history: DEBILITY- IN WHEELCHAIR P HAVING 2 BACK SURGERIES; THIN/FRAIL - Surgical History Past Surgical History?: Yes Additional Surgical History: back and left ankle - Social History Smoking Status: Former Smoker Substance Use Type: None - Medications Home Medications: Home Medications Medication Instructions Recorded Confirmed Last Taken Type AtorvaSTATin 10 mg PO QAM #30 12/25/19 03/05/20 Unknown Rx Baclofen [Lioresal] 20 mg PO Q8HR PRN #30 12/25/19 03/05/20 Unknown Rx Glimepiride 1 mg PO QDAY 30 Days #30 tablet 12/25/19 03/05/20 Unknown Rx Losartan [Cozaar] 100 mg PO QDAY 30 Days #30 12/25/19 03/05/20 Unknown Rx metFORMIN 500 mg PO BID #60 12/25/19 03/05/20 Unknown Rx Sodium Bicarbonate 650 mg PO BID #60 tablet 03/05/20 Unknown Rx ED Physical Exam - General Limitations: Physical Limitation General appearance: alert - Head Head exam: Present: atraumatic, normocephalic - Eye Eye exam: Present: normal appearance, EOMI - ENT ENT exam: Present: mucous membranes moist - Neck Neck exam: Present: normal inspection - Respiratory Respiratory exam: Present: normal lung sounds bilaterally. Absent: respiratory distress - Cardiovascular Cardiovascular Exam: Present: regular rate, normal rhythm - GI/Abdominal GI/Abdominal exam: Present: soft. Absent: distended, tenderness - Extremities Exam Extremities exam: Present: other (contractures noted bilaterally) - Back Exam Back exam: Present: normal inspection, paraspinal tenderness - Neurological Exam Neurological exam: Present: alert. Absent: oriented X3 (oriented x2) - Psychiatric Psychiatric exam: Present: flat affect - Skin Skin exam: Present: warm, dry, intact, normal color ED Course Vital Signs 03/25/20 03/25/20 19:32 20:34 Temperature 97.3 F L Pulse Rate 113 H 95 H Respiratory 18 18 Rate Blood Pressure 113/83 Blood Pressure 120/86 [Left] O2 Sat by Pulse 98 100 Oximetry - Lab Data Result diagrams: 03/25/20 21:18 03/25/20 21:18 Lab Results 03/25/20 03/25/20 Range/Units 21:18 21:18 WBC 10.7 (4.5-11.0) K/mm3 RBC 3.17 L (3.65-5.03) M/mm3 Hgb 8.8 L (10.1-14.3) gm/dl Hct 27.0 L (30.3-42.9) % MCV 85 (79-97) fl MCH 28 (28-32) pg MCHC 33 (30-34) % RDW 16.9 H (13.2-15.2) % Plt Count 886 H (140-440) K/mm3 Lymph % (Auto) 17.3 (13.4-35.0) % [place] % (Auto) 5.7 (0.0-7.3) % Eos % (Auto) 0.3 (0.0-4.3) % Baso % (Auto) 0.4 (0.0-1.8) % Lymph # 1.8 (1.2-5.4) K/mm3 [place] # 0.6 (0.0-0.8) K/mm3 Eos # 0.0 (0.0-0.4) K/mm3 Baso # 0.0 (0.0-0.1) K/mm3 Seg Neutrophils % 76.3 H (40.0-70.0) % Seg Neutrophils # 8.1 H (1.8-7.7) K/mm3 Sodium 126 L (137-145) mmol/L Potassium 5.1 H (3.6-5.0) mmol/L Chloride 91.3 L (98-107) mmol/L Carbon Dioxide 21 L (22-30) mmol/L Anion Gap 19 mmol/L BUN 14 (7-17) mg/dL Creatinine 1.2 (0.6-1.2) mg/dL Estimated GFR 55 ml/min BUN/Creatinine Ratio 12 % Glucose 133 H (65-100) mg/dL Calcium 8.6 (8.4-10.2) mg/dL - Radiology Data Radiology results: report reviewed, image reviewed - Medical Decision Making 65-year-old female presents the ED with episode of altered mental status. Daughter describes what sounds like possible seizure. She reports returned to baseline prior to ED arrival. Here in ED, patient was initially slightly tachycardic, however that resolved without intervention. Patient may have some degree of dementia, however she seems to be at baseline described by daughter. CT head negative for any acute findings. Show that patient has a UTI Rocephin given for this. Three weeks ago, patient was admitted to this facility with a sodium of 106. Upon discharge a few days later, sodium had improved to 136. Today, is hyponatremic again with a sodium level of 126. Patient had been given a bolus of IV normal saline. Patient will be admitted to hospitalist, Dr Tulio lugo, for further management. - Differential Diagnosis seizure, UTI, metabolic abnormality, intracranial abnormality Critical care attestation.: If time is entered above; I have spent that time in minutes in the direct care of this critically ill patient, excluding procedure time. ED Disposition Clinical Impression: UTI (urinary tract infection), Hyponatremia, Seizure Disposition: OP ADMIT IP TO THIS HOSP Is pt being admited?: Yes Condition: Stable Time of Disposition: 23:46
[2020-03-25 21:37] LABS: Basophils % (Auto) 0.4 % (0.0-1.8); Eosinophils % (Auto) 0.3 % (0.0-4.3); Hemoglobin 8.8 gm/dl (10.1-14.3); Lymphocytes # (Auto) 1.8 K/mm3 (1.2-5.4); Lymphocytes % (Auto) 17.3 % (13.4-35.0); Mean Corpuscular HGB Conc 33 % (30-34); Mean Corpuscular Volume 85 fl (79-97); Monocytes # (Auto) 0.6 K/mm3 (0.0-0.8); Monocytes % (Auto) 5.7 % (0.0-7.3); Platelet Count 886 K/mm3 (140-440); Red Blood Count 3.17 M/mm3 (3.65-5.03); Red Cell Distribution Width 16.9 % (13.2-15.2)
[2020-03-25 21:59] LABS: Calcium 8.6 mg/dL (8.4-10.2)
--- NOTE | 2020-03-25 22:02 | XRay Report ---
CHEST 1 VIEW 03/25/2020 8:49 PM INDICATION / CLINICAL INFORMATION: ams. COMPARISON: 03/02/20 FINDINGS: SUPPORT DEVICES: None. HEART / MEDIASTINUM: No significant abnormality. LUNGS / PLEURA: Linear atelectasis in the right lung base has improved but is similar in the left yfn g base. No pneumothorax. ADDITIONAL FINDINGS: No significant additional findings. IMPRESSION: 1. No significant change. Signer Name: Sirisha William MD Signed: 03/25/2020 9:58 PM Workstation Name: [id number]
--- NOTE | 2020-03-25 22:13 | Cat Scan Report ---
CT HEAD WITHOUT CONTRAST INDICATION / CLINICAL INFORMATION: seizure. TECHNIQUE: All CT scans at this location are performed using CT dose reduction for ALARA by means of automated e xposure control. COMPARISON: CT dated 03/02/20 FINDINGS: HEMORRHAGE: None. EXTRA-AXIAL SPACES: Normal in size and morphology for the patient's age. VENTRICULAR SYSTEM: Normal in size and morphology for the patient's age. CEREBRAL PARENCHYMA: No significant abnormality. No acute territorial infarct. MIDLINE SHIFT OR HERNIATION: None. CEREBELLUM / BRAINSTEM: No significant abnormality. ORBITS: Outpouching of the medial wall of the right orbit into the ethmoid air cells which is unchang ed since 02/21/19. SOFT TISSUES of HEAD: No significant abnormality. CALVARIUM: No significant abnormality. PARANASAL SINUSES / MASTOID AIR CELLS: Sinuses are clear. ADDITIONAL FINDINGS: None. IMPRESSION: 1. No acute intracranial abnormality. No change. Signer Name: Sirisha William MD Signed: 03/25/2020 10:09 PM Workstation Name: [id number]
[2020-03-25] MEDS ORDERED: SODIUM CHLORIDE 0.9% 1000 ML 1,000 ML IV ONE (22:17)
[2020-03-25 23:03] LABS: Bilirubin,Urine NEG (Negative); Blood,Urine MOD (Negative); Color,Urine Yellow (Yellow); Mucus,Urine FEW /HPF; Urobilinogen,Urine < 2.0 mg/dL (<2.0)
[2020-03-25 23:09] LABS: WBC,Urine > 182.0 /HPF (0.0-6.0)
[2020-03-25] MEDS ORDERED: cefTRIAXone/NS 1 GM/50 ML 1 GM/50 ML BAG IV ONE (23:30)
[2020-03-25] MEDS ORDERED: DEXTROSE 50% IN WATER (25GM) 50 ML SYRINGE IV PRN (23:55)
[2020-03-25] MEDS ORDERED: ONDANSETRON 4 MG/2 ML INJ IV PRN (23:55)
[2020-03-25] MEDS ORDERED: ACETAMINOPHEN 325 MG TAB PO PRN (23:55)
[2020-03-25] MEDS ORDERED: MAGNESIUM HYDROXIDE (MOM) ORAL LIQD UDC PO PRN (23:55)
--- NOTE | 2020-03-26 00:03 | History and Physical Report ---
History of Present Illness Date of examination: 03/25/20 Date of admission: 03/25/2020 Chief complaint: Back Pain History of present illness: Patient is a 65-year-old female with known history of chronic back pain, diabetes mellitus and hypertension presenting to the emergency room today complaining of worsening back pain. She states primary care physician took her off of hydrocodone about a month ago. Patient is bedbound and not ambulatory. She denies any fall and no recent injury. She denies any fever or chills, no nausea or vomiting, no abdominal pain. She states her back pain radiates into her lower extremities. According to patient's daughter, she had called EMS because patient had some changes in her mental status and noticed that patient was having her eyes rolled back into her head and fists were clenched. She was however back to her baseline prior to arrival of EMS. There has been no history of seizure disorder in the past however patient has some baseline memory problems. Patient was seen here about 3 weeks ago and was found to be hyponatremic with sodium of 109 however upon discharge as sodium had improved to about 136. Evaluation in the emergency room today reveals hyponatremia of 126, patient also has a UTI. She has been commenced on IV fluid and empiric IV antibiotics. Past History Past Medical History: diabetes, hypertension, hyperlipidemia Past Surgical History: Other (2 back Surgeires) Social history: smoking (Former Smoker) Family history: no significant family history Medications and Allergies Allergies Allergy/AdvReac Type Severity Reaction Status Date / Time Sulfa (Sulfonamide Allergy Unknown Verified 02/21/19 17:25 Antibiotics) Home Medications Medication Instructions Recorded Confirmed Last Taken Type AtorvaSTATin 10 mg PO QAM #30 12/25/19 03/05/20 Unknown Rx Baclofen [Lioresal] 20 mg PO Q8HR PRN #30 12/25/19 03/05/20 Unknown Rx Glimepiride 1 mg PO QDAY 30 Days #30 tablet 12/25/19 03/05/20 Unknown Rx Losartan [Cozaar] 100 mg PO QDAY 30 Days #30 12/25/19 03/05/20 Unknown Rx metFORMIN 500 mg PO BID #60 12/25/19 03/05/20 Unknown Rx Sodium Bicarbonate 650 mg PO BID #60 tablet 03/05/20 Unknown Rx Active Meds: Active Medications Acetaminophen (Tylenol) 650 mg PO Q4H PRN PRN Reason: Pain MILD(1-3)/Fever >100.5/AARON Dextrose (D50w (25gm) Syringe) 50 ml IV Q30MIN PRN; Protocol PRN Reason: Hypoglycemia Ceftriaxone Sodium (Rocephin/Ns 1 Gm/50 Ml) 1 gm in 50 mls @ 100 mls/hr IV ONCE ONE; Protocol Stop: 03/25/20 23:59 Review of Systems Constitutional: no fever, no chills Ears, nose, mouth and throat: no nasal congestion, no sore throat Cardiovascular: no chest pain, no palpitations Respiratory: no cough, no shortness of breath Gastrointestinal: no nausea, no vomiting, no diarrhea Genitourinary Female: no pelvic pain, no flank pain, no dysuria Musculoskeletal: low back pain (-Chronic), no neck pain Integumentary: no rash, no pruritis Neurological: no headaches, no confusion Psychiatric: no anxiety, no depression Exam - Constitutional Vitals: Temp Pulse Resp BP Pulse Ox 97.3 F L 95 H 18 120/86 100 03/25/20 19:32 03/25/20 20:34 03/25/20 20:34 03/25/20 20:34 03/25/20 20:34 General appearance: Present: no acute distress, well-nourished - EENT Eyes: Present: PERRL, EOM intact. Absent: scleral icterus ENT: hearing intact, clear oral mucosa, dentition normal - Neck Neck: Present: supple, normal ROM - Respiratory Respiratory effort: normal Respiratory: bilateral: CTA - Cardiovascular Rhythm: regular Heart Sounds: Present: S1 & S2. Absent: gallop, systolic murmur, diastolic murmur, rub - Extremities Extremities: no ischemia, pulses intact, pulses symmetrical, No edema, Full ROM Peripheral Pulses: within normal limits - Abdominal General gastrointestinal: Present: soft, non-tender, non-distended, normal bowel sounds. Absent: mass - Integumentary Integumentary: Present: clear, warm, dry. Absent: rash - Musculoskeletal Musculoskeletal: strength equal bilaterally - Psychiatric Psychiatric: appropriate mood/affect, intact judgment & insight, memory intact, cooperative - Neurologic Neurologic: CNII-XII intact, no focal deficits, moves all extremities Results - Labs CBC & Chem 7: 03/25/20 21:18 09/05/20 21:18 Labs: Abnormal lab results 03/25/20 03/25/20 03/25/20 Range/Units 21:18 21:18 Unknown RBC 3.17 L (3.65-5.03) M/mm3 Hgb 8.8 L (10.1-14.3) gm/dl Hct 27.0 L (30.3-42.9) % RDW 16.9 H (13.2-15.2) % Plt Count 886 H (140-440) K/mm3 Seg Neutrophils % 76.3 H (40.0-70.0) % Seg Neutrophils # 8.1 H (1.8-7.7) K/mm3 Sodium 126 L (137-145) mmol/L Potassium 5.1 H (3.6-5.0) mmol/L Chloride 91.3 L (98-107) mmol/L Carbon Dioxide 21 L (22-30) mmol/L Glucose 133 H (65-100) mg/dL Urine WBC (Auto) > 182.0 H (0.0-6.0) /HPF Assessment and Plan - Patient Problems (1) Hyponatremia Current Visit: Yes Status: Acute Plan to address problem: Patient placed on IV fluid normal saline. Will monitor chemistry. (2) UTI (urinary tract infection) Current Visit: Yes Status: Acute Plan to address problem: Patient placed on empiric IV antibiotics we await urine culture result. (3) Anemia Current Visit: No Status: Acute Qualifiers: Anemia type: unspecified type Qualified Code(s): D64.9 - Anemia, unspecified Plan to address problem: Possibly chronic. Will monitor CBC (4) HTN (hypertension) Current Visit: No Status: Chronic Qualifiers: Hypertension type: essential hypertension Qualified Code(s): I10 - Essential (primary) hypertension Plan to address problem: We will resume routine home medications and monitor vital signs closely. (5) T2DM (type 2 diabetes mellitus) Current Visit: No Status: Chronic Qualifiers: Diabetes mellitus prison insulin use: unspecified prison insulin use status Plan to address problem: We will monitor Accu-Cheks. (6) DVT prophylaxis Current Visit: No Status: Acute Plan to address problem: Patient placed on subcutaneous heparin. (7) Full code status Current Visit: No Status: Acute
[2020-03-26] MEDS: SODIUM CHLORIDE 0.9% 1000 ML 1,000 ML IV SCH ×3 (01:22→21:25)
[2020-03-26] MEDS: HEPARIN 5,000 UNIT/1 ML VIAL SUB-Q SCH ×3 (05:21→21:17)
[2020-03-26 05:30] LABS: Basophils % (Auto) 0.6 % (0.0-1.8); Eosinophils # (Auto) 0.1 K/mm3 (0.0-0.4); Eosinophils % (Auto) 1.2 % (0.0-4.3); Hemoglobin 8.1 gm/dl (10.1-14.3); Lymphocytes # (Auto) 2.6 K/mm3 (1.2-5.4); Lymphocytes % (Auto) 36.6 % (13.4-35.0); Mean Corpuscular HGB Conc 34 % (30-34); Mean Corpuscular Volume 84 fl (79-97); Monocytes # (Auto) 0.6 K/mm3 (0.0-0.8); Monocytes % (Auto) 8.4 % (0.0-7.3); Platelet Count 771 K/mm3 (140-440); Red Blood Count 2.84 M/mm3 (3.65-5.03); Red Cell Distribution Width 16.2 % (13.2-15.2)
[2020-03-26 05:37] LABS: INR 1.01 (0.87-1.13)
[2020-03-26 06:06] LABS: BUN/Creatinine Ratio 10; Blood Urea Nitrogen 11 mg/dL (7-17); Calcium 8.2 mg/dL (8.4-10.2); Hemolysis Index 0
[2020-03-26] MEDS: INSULIN LISPRO 100 UNIT/ML VIAL 3 mL SUB-Q SCH ×4 (08:13→22:40)
[2020-03-26] MEDS: cefTRIAXone/NS 1 GM/50 ML 1 GM/50 ML BAG IV SCH (10:38)
[2020-03-26] MEDS ORDERED: METOPROLOL TARTRATE 25 MG TAB PO SCH ×2 (12:00→14:35)
[2020-03-26 13:47] LABS: Creatine Kinase MB 3.6 ng/mL (0.0-4.0)
--- NOTE | 2020-03-26 14:16 | Consultation ---
History of Present Illness Consult date: 03/26/20 Consult reason: tachycardia History of present illness: 65-year-old female with known history of chronic back pain, diabetes mellitus and hypertension presenting to the emergency room today complaining of worsening back pain. She states primary care physician took her off of hydrocodone about a month ago. Patient is bedbound and not ambulatory. She denies any fall and no recent injury. She denies any fever or chills, no nausea or vomiting, no abdominal pain. She states her back pain radiates into her lower extremities. According to patient's daughter, she had called EMS because patient had some changes in her mental status and noticed that patient was having her eyes rolled back into her head and fists were clenched. She was however back to her baseline prior to arrival of EMS. There has been no history of seizure disorder in the past however patient has some baseline memory problems. Patient was found to have hyponatremia and recurrent UTI. Cardiology is being consulted due to brief episode of NSVT Of note, patient was previously evaluated by Cardiology about 1 year ago due to brief episode of NSVT. Echocardiogram at that time revealed normal LVEF and no significant valvular lesions. Past History Past Medical History: diabetes, hypertension, hyperlipidemia Past Surgical History: Other (2 back Surgeires) Social history: smoking (Former Smoker) Family history: no significant family history Medications and Allergies Allergies Allergy/AdvReac Type Severity Reaction Status Date / Time Sulfa (Sulfonamide Allergy Unknown Verified 02/21/19 17:25 Antibiotics) Home Medications Medication Instructions Recorded Confirmed Last Taken Type AtorvaSTATin 10 mg PO QAM #30 12/25/19 03/05/20 Unknown Rx Baclofen [Lioresal] 20 mg PO Q8HR PRN #30 12/25/19 03/05/20 Unknown Rx Glimepiride 1 mg PO QDAY 30 Days #30 tablet 12/25/19 03/05/20 Unknown Rx Losartan [Cozaar] 100 mg PO QDAY 30 Days #30 12/25/19 03/05/20 Unknown Rx metFORMIN 500 mg PO BID #60 12/25/19 03/05/20 Unknown Rx Sodium Bicarbonate 650 mg PO BID #60 tablet 03/05/20 Unknown Rx Active Meds: Active Medications Acetaminophen (Tylenol) 650 mg PO Q4H PRN PRN Reason: Pain MILD(1-3)/Fever >100.5/AARON Dextrose (D50w (25gm) Syringe) 0 ml IV Q30MIN PRN; Protocol PRN Reason: Hypoglycemia Heparin Sodium (Porcine) (Heparin) 5,000 unit SUB-Q Q8HR [facility] Last Admin: 03/26/20 05:21 Dose: 5,000 unit Documented by: Sodium Chloride (Nacl 0.9% 1000 Ml) 1,000 mls @ 125 mls/hr IV DIRECT [facility] Last Admin: 03/26/20 10:38 Dose: 125 mls/hr Documented by: Ceftriaxone Sodium (Rocephin/Ns 1 Gm/50 Ml) 1 gm in 50 mls @ 100 mls/hr IV Q24HR [facility]; Protocol Last Admin: 03/26/20 10:38 Dose: 100 mls/hr Documented by: Insulin Human Lispro (Humalog) 0 unit SUB-Q ACHS [facility]; Protocol Last Admin: 03/26/20 12:20 Dose: Not Given Documented by: Magnesium Hydroxide (Milk Of Magnesia) 30 ml PO Q4H PRN PRN Reason: Constipation Metoprolol Tartrate (Metoprolol) 12.5 mg PO BID [facility] Last Admin: 03/26/20 12:32 Dose: 12.5 mg Documented by: Morphine Sulfate (Morphine) 2 mg IV Q4H PRN PRN Reason: Pain, Moderate (4-6) Ondansetron HCl (Zofran) 4 mg IV Q8H PRN PRN Reason: Nausea And Vomiting Sodium Chloride (Sodium Chloride Flush Syringe 10 Ml) 10 ml IV BID [facility] Last Admin: 03/26/20 10:39 Dose: 10 ml Documented by: Sodium Chloride (Sodium Chloride Flush Syringe 10 Ml) 10 ml IV PRN PRN PRN Reason: LINE FLUSH Review of Systems All systems: negative (per hpi) Physical Examination Vital Signs Temp Pulse Resp BP Pulse Ox 97.3 F L 113 H 18 113/83 98 03/25/20 19:32 03/25/20 19:32 03/25/20 19:32 03/25/20 19:32 03/25/20 19:32 General appearance: no acute distress HEENT: Positive: PERRL Neck: Positive: neck supple, trachea midline Cardiac: Positive: Reg Rate and Rhythm Lungs: Positive: clear to auscultation Abdomen: Positive: Soft, Active Bowel Sounds Extremities: Absent: edema Results 03/26/20 05:00 03/26/20 05:00 Cardiac Enzymes 03/26/20 Range/Units 12:50 CK-MB (CK-2) 3.6 (0.0-4.0) ng/mL Coagulation 03/26/20 Range/Units 05:00 PT 13.5 (12.2-14.9) Sec. INR 1.01 (0.87-1.13) CBC 03/25/20 03/26/20 Range/Units 21:18 05:00 WBC 10.7 7.2 (4.5-11.0) K/mm3 RBC 3.17 L 2.84 L (3.65-5.03) M/mm3 Hgb 8.8 L 8.1 L (10.1-14.3) gm/dl Hct 27.0 L 24.0 L (30.3-42.9) % Plt Count 886 H 771 H (140-440) K/mm3 Lymph # 1.8 2.6 (1.2-5.4) K/mm3 [place] # 0.6 0.6 (0.0-0.8) K/mm3 Eos # 0.0 0.1 (0.0-0.4) K/mm3 Baso # 0.0 0.0 (0.0-0.1) K/mm3 Comprehensive Metabolic Panel 03/25/20 03/26/20 Range/Units 21:18 05:00 Sodium 126 L 133 L D (137-145) mmol/L Potassium 5.1 H 5.0 (3.6-5.0) mmol/L Chloride 91.3 L 99.7 (98-107) mmol/L Carbon Dioxide 21 L 22 (22-30) mmol/L BUN 14 11 (7-17) mg/dL Creatinine 1.2 1.1 (0.6-1.2) mg/dL Glucose 133 H 79 (65-100) mg/dL Calcium 8.6 8.2 L (8.4-10.2) mg/dL Assessment and Plan NSVT Hyponatremia UTI Chronic pain Htn Recommend: Continue beta ilana - titrate as tolerated Correct electrolytes Continue treatment for UTI
[2020-03-26 14:29] LABS: Chol/HDL Ratio 2.19 %
--- NOTE | 2020-03-26 14:29 | Progress Note ---
Assessment and Plan --SVT, noted on telemetry started on BB, get stat EKG, CE, 2d echo consult cardiology -- Hyponatremia Patient placed on IV fluid normal saline. Will monitor chemistry. -- UTI (urinary tract infection) Patient placed on empiric IV antibiotics we await urine culture result. --KILLIAN, likely from dehydration cont iv fluid --elevated troponin, likely NSTEMI type 2 from SVT cont to trend, asp, statin, 2d echo, cardiology consult -- Anemia Possibly chronic. Will monitor CBC -- HTN (hypertension) Resume routine home medications and monitor vital signs closely. -- T2DM (type 2 diabetes mellitus) We will monitor with Accu-Cheks. consistent carb diet -- DVT prophylaxis Patient placed on subcutaneous heparin. -- Full code status 03/26: Noted SVT on telemetry, started on BB, get stat EKG, CE, 2d echo, consulted cardiology. monitor BMP, cont iv fluid Subjective Date of service: 03/26/20 Interval history: Patient seen and examined. Medical records and medication list reviewed. No acute event overnight noted by the RN. Patient denies any chest pain or difficulty breathing. Patient is tolerating diet. Noted frequent nonsustained SVTs on telemetry Discussed plan of care at bedside with patient. Objective - Exam Narrative Exam: GENERAL: well-developed and well-nourished elderly female lying on bed appeared to be in no discomfort. HEENT: Normocephalic. Atraumatic. No conjunctival congestion or icterus. Patient has moist mucous membranes. NECK: Supple. Trachea midline. CHEST/LUNGS: Clear to auscultated bilaterally, breathing nonlabored. No wheezes crackles or rhonchi. HEART/CARDIOVASCULAR: Regular in rate and rhythm. S1 and S2 positive. ABDOMEN: Abdomen is soft, nontender. Patient has normal bowel sounds. SKIN: There is no rash. Warm and dry. NEURO: No focal motor deficit. Follows command. MUSCULOSKELETAL: No joint effusion or tenderness. EXTRIMITY: No edema, no cyanosis or clubbing. PSYCH: Cooperative. - Constitutional Vitals: Vital Signs - 12hr 03/26/20 03/26/20 03/26/20 07:14 10:00 10:39 Temperature 98.2 F Pulse Rate 83 72 86 Pulse Rate [ 88 Left Radial] Pulse Rate [ 88 Right Radial] Respiratory 18 19 Rate Blood Pressure 138/78 153/86 O2 Sat by Pulse 100 99 100 Oximetry 03/26/20 03/26/20 12:00 12:32 Temperature 98.2 F Pulse Rate 86 83 Pulse Rate [ Left Radial] Pulse Rate [ Right Radial] Respiratory 18 Rate Blood Pressure 153/89 159/86 O2 Sat by Pulse 99 Oximetry - Labs CBC & Chem 7: 03/26/20 05:00 03/26/20 05:00 Labs: Abnormal lab results 03/25/20 03/25/20 03/25/20 Range/Units 21:18 21:18 Unknown RBC 3.17 L (3.65-5.03) M/mm3 Hgb 8.8 L (10.1-14.3) gm/dl Hct 27.0 L (30.3-42.9) % RDW 16.9 H (13.2-15.2) % Plt Count 886 H (140-440) K/mm3 Lymph % (Auto) (13.4-35.0) % [place] % (Auto) (0.0-7.3) % Seg Neutrophils % 76.3 H (40.0-70.0) % Seg Neutrophils # 8.1 H (1.8-7.7) K/mm3 Sodium 126 L (137-145) mmol/L Potassium 5.1 H (3.6-5.0) mmol/L Chloride 91.3 L (98-107) mmol/L Carbon Dioxide 21 L (22-30) mmol/L Glucose 133 H (65-100) mg/dL Calcium (8.4-10.2) mg/dL CK-MB (CK-2) Rel Index (0-4) Troponin T (0.00-0.029) ng/mL Urine WBC (Auto) > 182.0 H (0.0-6.0) /HPF 03/26/20 03/26/20 03/26/20 Range/Units 05:00 05:00 12:50 RBC 2.84 L (3.65-5.03) M/mm3 Hgb 8.1 L (10.1-14.3) gm/dl Hct 24.0 L (30.3-42.9) % RDW 16.2 H (13.2-15.2) % Plt Count 771 H (140-440) K/mm3 Lymph % (Auto) 36.6 H (13.4-35.0) % [place] % (Auto) 8.4 H (0.0-7.3) % Seg Neutrophils % (40.0-70.0) % Seg Neutrophils # (1.8-7.7) K/mm3 Sodium 133 L D (137-145) mmol/L Potassium (3.6-5.0) mmol/L Chloride (98-107) mmol/L Carbon Dioxide (22-30) mmol/L Glucose (65-100) mg/dL Calcium 8.2 L (8.4-10.2) mg/dL CK-MB (CK-2) Rel Index 6.6 H (0-4) Troponin T 0.048 H (0.00-0.029) ng/mL Urine WBC (Auto) (0.0-6.0) /HPF HEART Score - HEART Score Troponin: Troponin T 0.048 ng/mL (0.00-0.029) H 03/26/20 12:50
[2020-03-26] MEDS: ASPIRIN EC 81 MG TAB PO SCH (15:05)
[2020-03-26] MEDS: MORPHINE 2 MG/1 ML INJ IV PRN (21:17)
[2020-03-27] MEDS: INSULIN LISPRO 100 UNIT/ML VIAL 3 mL SUB-Q SCH ×3 (00:01→15:07)
[2020-03-27] MEDS: MORPHINE 2 MG/1 ML INJ IV PRN (04:36)
[2020-03-27] MEDS: HEPARIN 5,000 UNIT/1 ML VIAL SUB-Q SCH ×2 (05:09→14:20)
[2020-03-27 08:58] VITALS: BP 144/102
--- NOTE | 2020-03-27 09:24 | Discharge Summary ---
Providers - Providers Date of Admission: 03/25/20 23:47 Date of discharge: 03/27/20 Attending physician: PIPE OLIVA 03/25/20 23:56 Consult to Dietitian/Nutrition [CONS] Routine Physician Instructions: Reason For Exam: Reason for Consult: Diet education 03/26/20 11:07 Consult to Physician [CONS] Routine Comment: Consulting Provider: MUSTAPHA GUALLPA Physician Instructions: Reason For Exam: SVT Primary care physician: OUTPATIENT PHARMACY MANAGER Hospitalization Condition: Fair Hospital course: 65-year-old female with known history of chronic back pain, diabetes mellitus and hypertension presented to the emergency room with complaining of worsening back pain. According to patient's daughter, she had called EMS because patient had some changes in her mental status and noticed that patient was having her eyes rolled back into her head and fists were clenched. She was however back to her baseline prior to arrival of EMS. There has been no history of seizure disorder in the past however patient has some baseline memory problems. Patient was found to have hyponatremia and recurrent UTI. She was placed on IV fluid and started empiric antibiotic for UTI. Her renal function improved, her mental status remained stable, no further seizure activity noted. Next day patient noted to have brief episode of NSVT on telemetry. Patient was started on low-dose beta-ilana and cardiology was consulted Of note, patient was previously evaluated by Cardiology about 1 year ago due to brief episode of NSVT. Echocardiogram at that time revealed normal LVEF and no significant valvular lesions. Cardiology recommended to continue beta-ilana and outpatient follow-up. Patient was then discharged home in stable condition, she was recommended to follow-up with cardiology outpatient. Discharge diagnosis; --NSVT, noted on telemetry started on BB -- Hyponatremia, due to dehydration Patient placed on IV fluid normal saline. --Acute metabolic encephalopathy, present on admission Likely due to hyponatremia UTI and KILLIAN Mental status remained stable -- UTI (urinary tract infection) Patient placed on empiric IV antibiotics --KILLIAN, likely from dehydration improved with iv fluid --elevated troponin, likely NSTEMI type 2 from SVT cont aspirin, BB, statin cardiology recommended no further workup -- Anemia Possibly chronic. h/h stable -- HTN (hypertension) cont BB -- T2DM (type 2 diabetes mellitus) consistent carb diet. cont oral hypoglycemic medications Disposition: [id number] HOME UND[facility] Time spent for discharge: 34 minutes Core Measure Documentation - Palliative Care Palliative Care/ Comfort Measures: Not Applicable - Core Measures Any of the following diagnoses?: none Exam - Physical Exam Narrative exam: GENERAL: well-developed and well-nourished elderly female lying on bed appeared to be in no discomfort. HEENT: Normocephalic. Atraumatic. No conjunctival congestion or icterus. Patient has moist mucous membranes. NECK: Supple. Trachea midline. CHEST/LUNGS: Clear to auscultated bilaterally, breathing nonlabored. No wheezes crackles or rhonchi. HEART/CARDIOVASCULAR: Regular in rate and rhythm. S1 and S2 positive. ABDOMEN: Abdomen is soft, nontender. Patient has normal bowel sounds. SKIN: There is no rash. Warm and dry. NEURO: No focal motor deficit. Follows command. MUSCULOSKELETAL: No joint effusion or tenderness. EXTRIMITY: No edema, no cyanosis or clubbing. PSYCH: Cooperative. - Constitutional Vitals: Temp Pulse Resp BP Pulse Ox 98.9 F 74 22 144/102 98 03/27/20 07:24 03/27/20 07:24 03/27/20 07:24 03/27/20 07:24 03/27/20 07:24 Plan Activity: fall precautions Weight Bearing Status: Non-Weight Bearing Diet: diabetic Follow up with: PRIMARY MD AIDA [Primary Care Provider] - 3-5 Days LISA MAZARIEGOS MD [Staff Physician] - 7 Days Prescriptions: Aspirin EC [Halfprin EC] 81 mg PO QDAY #30 tablet levoFLOXacin [Levaquin] 750 mg PO QDAY #3 tablet Metoprolol [Lopressor TAB] 50 mg PO BID #60 tablet
[2020-03-27] MEDS: cefTRIAXone/NS 1 GM/50 ML 1 GM/50 ML BAG IV SCH (09:36)
[2020-03-27] MEDS: ASPIRIN EC 81 MG TAB PO SCH (09:36)
[2020-03-27] MEDS ORDERED: amLODIPine 5 MG TAB PO SCH (10:00)
[2020-03-27] MEDS ORDERED: METOPROLOL TARTRATE 25 MG TAB PO SCH (10:00)
[2020-03-27 10:42] LABS: BUN/Creatinine Ratio 7; Blood Urea Nitrogen 8 mg/dL (7-17); Calcium 8.3 mg/dL (8.4-10.2); Hemolysis Index 4
--- NOTE | 2020-03-27 14:26 | Progress Note ---
Assessment and Plan NSVT Hyponatremia UTI Chronic pain Htn Recommend: Continue beta ilana - titrate as tolerated Correct electrolytes Continue treatment for UTI Subjective Date of service: 03/27/20 Interval history: No acute events. Possibly being discharged Objective Vital Signs Temp Pulse Resp BP Pulse Ox 03/27/20 07:24 98.9 F 74 22 144/102 98 03/27/20 07:14 97.7 F 78 20 158/84 100 03/27/20 03:15 98.5 F 89 16 156/95 98 03/26/20 22:48 98.6 F 86 18 154/85 98 03/26/20 21:17 92 H 18 151/84 03/26/20 20:00 86 03/26/20 19:38 98.4 F 92 H 16 151/84 98 03/26/20 16:33 98.6 F 89 18 126/80 99 - Physical Examination HEENT: Positive: PERRL Neck: Positive: neck supple, trachea midline Cardiac: Positive: Reg Rate and Rhythm Lungs: Positive: clear to auscultation Abdomen: Positive: Soft, Active Bowel Sounds Extremities: Absent: edema - Labs and Meds Lipids 03/26/20 Range/Units 12:50 Triglycerides 142 (2-149) mg/dL Cholesterol 101 (50-199) mg/dL HDL Cholesterol 46 (40-59) mg/dL Cholesterol/HDL Ratio 2.19 % Comprehensive Metabolic Panel 03/27/20 Range/Units 09:28 Sodium 132 L (137-145) mmol/L Potassium 4.9 (3.6-5.0) mmol/L Chloride 101.2 (98-107) mmol/L Carbon Dioxide 19 L (22-30) mmol/L BUN 8 (7-17) mg/dL Creatinine 1.1 (0.6-1.2) mg/dL Glucose 143 H (65-100) mg/dL Calcium 8.3 L (8.4-10.2) mg/dL
== END 2020-03-27 18:26 | disposition home health service (06) ==
LOC: ED 18:59 → 4A 23:47
PROVIDERS: ADMIT Internal Medicine Geriatric Medicine; ATTEND Internal Medicine
DX: I47.1 Supraventricular tachycardia (principal); E87.1 Hypo-osmolality and hyponatremia; R41.82 Altered mental status, unspecified; G93.41 Metabolic encephalopathy; N17.9 Acute kidney failure, unspecified; N39.0 Urinary tract infection, site not specified; R79.89 Other specified abnormal findings of blood chemistry; F03.90 Unspecified dementia, unspecified severity, without behavioral disturbance, psychotic disturbance, mood disturbance, and anxiety; D64.9 Anemia, unspecified; I10 Essential (primary) hypertension; E11.9 Type 2 diabetes mellitus without complications; E78.5 Hyperlipidemia, unspecified; G89.29 Other chronic pain; M54.9 Dorsalgia, unspecified; Z87.891 Personal history of nicotine dependence; Z71.6 Tobacco abuse counseling; Z79.84 Long term (current) use of oral hypoglycemic drugs; Z79.899 Other long term (current) drug therapy; Z88.2 Allergy status to sulfonamides
CPT/HCPCS: 36415; 70450; 71045; 80048; 80061; 81001; 82550; 82553; 82962; 83036; 84484; 85025; 85610; 93005; 96361; 96365; 96366; 96372; 96375; 96376; 99285; 99406; A9270; G0378; J0696; J1644; J2270; J7030

== ENCOUNTER 2020-04-05 01:54 | Emergency (ER) | payer MEDICARE, OTHER ==
[2020-04-05 02:30] LABS: Bacteria,Urine 1+ /HPF (Negative); Bilirubin,Urine NEG (Negative); Blood,Urine LG (Negative); Color,Urine Yellow (Yellow); Urobilinogen,Urine < 2.0 mg/dL (<2.0)
[2020-04-05 02:34] LABS: RBC,Urine > 182.0 /HPF (0.0-6.0); WBC,Urine > 182.0 /HPF (0.0-6.0)
[2020-04-05] MEDS ORDERED: levoFLOXacin 500 MG TAB PO ONE (02:44)
--- NOTE | 2020-04-05 02:51 | Emergency Department Report ---
HPI - General Chief Complaint: Urogenital-Female Time Seen by Provider: 04/05/20 02:19 - HPI HPI: This is a 65-year-old female presents to the emergency department via EMS from home with complaint of blood in the urine throughout all of today. She denies any abdominal or pelvic pain. She denies any fever, nausea, vomiting. She has not taken anything for symptoms prior to presentation. She has a past medical history of diabetes, hypertension, chronic back pains and dementia is also listed. Patient's primary care physician is a Dr. Wilson. ED Past Medical Hx - Past Medical History Hx Hypertension: Yes Hx Diabetes: Yes Hx Dementia: Yes Additional medical history: DEBILITY- IN WHEELCHAIR P HAVING 2 BACK SURGERIES; THIN/FRAIL - Surgical History Additional Surgical History: back and left ankle - Social History Smoking Status: Never Smoker Substance Use Type: None - Medications Home Medications: Home Medications Medication Instructions Recorded Confirmed Last Taken Type AtorvaSTATin 10 mg PO QAM #30 12/25/19 03/27/20 Unknown Rx Baclofen [Lioresal] 20 mg PO Q8HR PRN #30 12/25/19 03/27/20 Unknown Rx Glimepiride 1 mg PO QDAY 30 Days #30 tablet 12/25/19 03/27/20 Unknown Rx metFORMIN 500 mg PO BID #60 12/25/19 03/27/20 Unknown Rx Aspirin EC [Halfprin EC] 81 mg PO QDAY #30 tablet 03/27/20 Unknown Rx Metoprolol [Lopressor TAB] 50 mg PO BID #60 tablet 03/27/20 Unknown Rx levoFLOXacin [Levaquin] 750 mg PO QDAY #3 tablet 03/27/20 Unknown Rx Ciprofloxacin HCl [Ciprofloxacin 500 mg PO Q12HR #10 tab 04/05/20 Unknown Rx TAB] ED Review of Systems ROS: Stated complaint: BLOOD IN URINE Other details as noted in HPI Comment: All other systems reviewed and negative Constitutional: denies: chills, fever Eyes: denies: eye pain, vision change ENT: denies: ear pain, throat pain Respiratory: denies: cough, shortness of breath Cardiovascular: denies: chest pain, palpitations Gastrointestinal: denies: abdominal pain, vomiting Genitourinary: hematuria. denies: dysuria, discharge Musculoskeletal: denies: joint swelling, arthralgia Skin: denies: rash, lesions Neurological: denies: headache, weakness Physical Exam - Physical Exam Vital Signs: Vital Signs 04/05/20 01:59 Temperature 98.4 F Pulse Rate 63 Respiratory 18 Rate Blood Pressure 134/70 [Left] O2 Sat by Pulse 98 Oximetry Physical Exam: GENERAL: The patient is well-developed well-nourished. HENT: Normocephalic. Atraumatic. Patient has moist mucous membranes. EYES: Extraocular motions are intact. NECK: Supple. Trachea is midline. CHEST/LUNGS: Clear to auscultation. There is no respiratory distress noted. HEART/CARDIOVASCULAR: Regular. There is no tachycardia. ABDOMEN: Abdomen is soft, nontender. Patient has normal bowel sounds. SKIN: Skin is warm and dry. NEURO: The patient is awake, alert, and cooperative. Normal speech. MUSCULOSKELETAL: There is no tenderness or deformity. ED Course Vital Signs 04/05/20 01:59 Temperature 98.4 F Pulse Rate 63 Respiratory 18 Rate Blood Pressure 134/70 [Left] O2 Sat by Pulse 98 Oximetry ED Medical Decision Making - Lab Data Result diagrams: 04/05/20 02:39 04/05/20 02:39 - Medical Decision Making Patient presents with a complaint of hematuria. She has no complaints of any dysuria, vaginal bleeding or discharge, abdominal or pelvic pain. Urinalysis shows a significant urinary tract infection and hematuria. The complete blood count shows anemia with a hemoglobin of 7.5 but this is consistent with previous visits. Metabolic panel shows some mild renal insufficiency with a GFR of about 50. The patient was given a dose of Levaquin here. Vital signs have been reassuring including being afebrile. She appears safe for discharge home at this time. She will be placed on antibiotics and has been given outpatient referral for urology. She has been instructed to return to the emergency department with any worsening of her symptoms or with any acute distress. Critical Care Time: No Critical care attestation.: If time is entered above; I have spent that time in minutes in the direct care of this critically ill patient, excluding procedure time. ED Disposition Clinical Impression: Mild renal insufficiency UTI (urinary tract infection) Qualifiers: Urinary tract infection type: acute cystitis Hematuria presence: with hematuria Qualified Code(s): N30.01 - Acute cystitis with hematuria Hematuria Qualifiers: Hematuria type: unspecified type Qualified Code(s): R31.9 - Hematuria, unspecified Anemia Qualifiers: Anemia type: unspecified type Qualified Code(s): D64.9 - Anemia, unspecified Disposition: TO HOME OR SELFCARE Is pt being admited?: No Condition: Stable Instructions: Urinary Tract Infection in Women (ED), Acute Hematuria (ED), Anemia (ED) Additional Instructions: Please follow-up with a primary care physician in the next few days. I am giving you a referral for a local urologist, Dr. Horan, to follow-up regarding your urinary tract infection and the blood in your urine. Take the antibiotics as prescribed. Return to the emergency department with any worsening of your symptoms or with any acute distress. Prescriptions: Ciprofloxacin HCl [Ciprofloxacin TAB] 500 mg PO Q12HR #10 tab Referrals: ALISON HORAN MD [Staff Physician] - 3-5 Days PCP, Your [Other] - 3-5 Days Time of Disposition: 04:00
[2020-04-05 02:55] LABS: Basophils % (Auto) 0.7 % (0.0-1.8); Eosinophils # (Auto) 0.2 K/mm3 (0.0-0.4); Eosinophils % (Auto) 2.7 % (0.0-4.3); Hematocrit 23.1 % (30.3-42.9); Hemoglobin 7.5 gm/dl (10.1-14.3); Lymphocytes # (Auto) 2.9 K/mm3 (1.2-5.4); Mean Corpuscular HGB Conc 33 % (30-34); Mean Corpuscular Volume 87 fl (79-97); Monocytes # (Auto) 0.9 K/mm3 (0.0-0.8); Monocytes % (Auto) 11.2 % (0.0-7.3); Platelet Count 438 K/mm3 (140-440); Red Blood Count 2.65 M/mm3 (3.65-5.03); Red Cell Distribution Width 18.8 % (13.2-15.2)
[2020-04-05 03:11] LABS: Alanine Aminotransferase 6 units/L (7-56); Albumin 2.7 g/dL (3.9-5); BUN/Creatinine Ratio 10; Blood Urea Nitrogen 13 mg/dL (7-17); Calcium 8.2 mg/dL (8.4-10.2); Hemolysis Index 3
[2020-04-05 09:55] VITALS: BP 133/74
== END 2020-04-05 09:55 | disposition home or self-care (01) ==
LOC: ED 01:54
DX: N39.0 Urinary tract infection, site not specified (principal); N28.9 Disorder of kidney and ureter, unspecified; D64.9 Anemia, unspecified; R31.9 Hematuria, unspecified; I10 Essential (primary) hypertension; E11.9 Type 2 diabetes mellitus without complications; F03.90 Unspecified dementia, unspecified severity, without behavioral disturbance, psychotic disturbance, mood disturbance, and anxiety; Z88.2 Allergy status to sulfonamides; Z98.890 Other specified postprocedural states; Z79.899 Other long term (current) drug therapy
CPT/HCPCS: 36415; 80053; 81001; 85025

== ENCOUNTER 2021-05-27 14:18 | Inpatient (IN) | payer OTHER, MEDICARE ==
[2021-05-27] MEDS ORDERED: cefTRIAXone/NS 2 GM/100 ML 2 GM/100 ML BAG IV ONE (14:27)
--- NOTE | 2021-05-27 14:36 | Emergency Department Report ---
ED Altered Mental Status HPI - General Stated Complaint: N/V, WEAKNESS PUI?: No Time Seen by Provider: 05/27/21 14:23 Source: patient, family, old records reviewed Mode of arrival: Stretcher Limitations: Altered Mental Status - History of Present Illness Initial Comments: Chief complaint weakness lethargy poor appetite vomiting HPI: This is a 66-year-old female with history of diabetes mellitus, hypertension, SVT, anemia, with poor appetite, lethargy and vomiting. Hypoglycemia 64 today. Patient has been bedbound for 9 years. Has had 5 back surgeries with resulting weakness. Hx of recurrent UTI and sepsis. Smooth [phone] daughter gave history Patient is altered, will only answer questions with repeated stimulation MD Complaint: altered mental status, decreased responsiveness -: Gradual, days(s) (3 days) Severity: moderate Consistency of Symptoms: waxing and waning Context: diabetes, other (Recurrent UTI) Associated Symptoms: other (Poor appetite vomiting) - Related Data Previous Rx's Medication Instructions Recorded Last Taken Type AtorvaSTATin 10 mg PO QAM #30 12/25/19 Unknown Rx Baclofen [Lioresal] 20 mg PO Q8HR PRN #30 12/25/19 Unknown Rx Glimepiride 1 mg PO QDAY 30 Days #30 tablet 12/25/19 Unknown Rx metFORMIN 500 mg PO BID #60 12/25/19 Unknown Rx Aspirin EC [Halfprin EC] 81 mg PO QDAY #30 tablet 03/27/20 Unknown Rx Metoprolol [Lopressor TAB] 50 mg PO BID #60 tablet 03/27/20 Unknown Rx levoFLOXacin [Levaquin] 750 mg PO QDAY #3 tablet 03/27/20 Unknown Rx Ciprofloxacin HCl [Ciprofloxacin 500 mg PO Q12HR #10 tab 04/05/20 Unknown Rx TAB] Allergies Allergy/AdvReac Type Severity Reaction Status Date / Time Sulfa (Sulfonamide Allergy Unknown Verified 05/27/21 14:40 Antibiotics) ED Review of Systems ROS: Stated complaint: N/V, WEAKNESS Other details as noted in HPI Comment: Unobtainable due to pts medical conditions (Altered mental status history obtained from daughter Smooth [phone]) ED Past Medical Hx - Past Medical History Previous Medical History?: Yes Hx Hypertension: Yes Hx Diabetes: Yes Hx Dementia: Yes Additional medical history: DEBILITY- IN WHEELCHAIR P HAVING 2 BACK SURGERIES; THIN/FRAIL - Surgical History Past Surgical History?: Yes Additional Surgical History: 5 back surgeries and left ankle - Social History Smoking Status: Never Smoker Substance Use Type: None - Medications Home Medications: Home Medications Medication Instructions Recorded Confirmed Last Taken Type AtorvaSTATin 10 mg PO QAM #30 12/25/19 03/27/20 Unknown Rx Baclofen [Lioresal] 20 mg PO Q8HR PRN #30 12/25/19 03/27/20 Unknown Rx Glimepiride 1 mg PO QDAY 30 Days #30 tablet 12/25/19 03/27/20 Unknown Rx metFORMIN 500 mg PO BID #60 12/25/19 03/27/20 Unknown Rx Aspirin EC [Halfprin EC] 81 mg PO QDAY #30 tablet 03/27/20 Unknown Rx Metoprolol [Lopressor TAB] 50 mg PO BID #60 tablet 03/27/20 Unknown Rx levoFLOXacin [Levaquin] 750 mg PO QDAY #3 tablet 03/27/20 Unknown Rx Ciprofloxacin HCl [Ciprofloxacin 500 mg PO Q12HR #10 tab 04/05/20 Unknown Rx TAB] ED Physical Exam - General General appearance: in no apparent distress, lethargic, other (Slow to respond) - Head Head exam: Present: atraumatic, normocephalic - Eye Eye exam: Present: normal appearance. Absent: scleral icterus, conjunctival injection - ENT ENT exam: Present: mucous membranes dry - Neck Neck exam: Present: normal inspection, full ROM - Respiratory Respiratory exam: Present: normal lung sounds bilaterally. Absent: respiratory distress, wheezes, rales - Cardiovascular Cardiovascular Exam: Present: regular rate, normal rhythm, normal heart sounds. Absent: systolic murmur, diastolic murmur, rubs, gallop - GI/Abdominal GI/Abdominal exam: Present: soft. Absent: distended, tenderness, guarding, rebound - Extremities Exam Extremities exam: Present: normal inspection - Neurological Exam Neurological exam: Present: altered - Psychiatric Psychiatric exam: Present: flat affect - Skin Skin exam: Present: warm, dry, intact, normal color. Absent: rash ED Course Vital Signs 05/27/21 05/27/21 05/27/21 14:24 14:30 14:40 Temperature 97.9 F Pulse Rate 94 H 68 76 Respiratory 11 L 14 14 Rate Blood Pressure 132/73 128/73 O2 Sat by Pulse 96 96 99 Oximetry 05/27/21 05/27/21 14:46 15:01 Temperature Pulse Rate 70 Respiratory 14 Rate Blood Pressure 132/73 O2 Sat by Pulse 95 100 Oximetry - Lab Data Result diagrams: 05/27/21 14:58 05/27/21 14:58 Lab Results 05/27/21 05/27/21 05/27/21 Range/Units 14:22 14:36 14:58 WBC 6.1 (4.5-11.0) K/mm3 RBC 3.14 L (3.65-5.03) M/mm3 Hgb 10.5 (10.1-14.3) gm/dl Hct 31.7 (30.3-42.9) % MCV 101 H (79-97) fl MCH 34 H (28-32) pg MCHC 33 (30-34) % RDW 13.2 (13.2-15.2) % Plt Count 231 (140-440) K/mm3 Lymph % (Auto) 27.0 (13.4-35.0) % Emmons % (Auto) 15.3 H (0.0-7.3) % Eos % (Auto) 0.9 (0.0-4.3) % Baso % (Auto) 1.0 (0.0-1.8) % Lymph # (Auto) 1.6 (1.2-5.4) K/mm3 Emmons # (Auto) 0.9 H (0.0-0.8) K/mm3 Eos # (Auto) 0.1 (0.0-0.4) K/mm3 Baso # (Auto) 0.1 (0.0-0.1) K/mm3 Seg Neutrophils % 55.8 (40.0-70.0) % Seg Neutrophils # 3.4 (1.8-7.7) K/mm3 Sodium (137-145) mmol/L Potassium (3.6-5.0) mmol/L Chloride (98-107) mmol/L Carbon Dioxide (22-30) mmol/L Anion Gap mmol/L BUN (7-17) mg/dL Creatinine (0.6-1.2) mg/dL Estimated GFR ml/min BUN/Creatinine Ratio % Glucose (65-100) mg/dL POC Glucose 108 H (70-105) mg/dL Lactic Acid (0.7-2.0) mmol/L Calcium (8.4-10.2) mg/dL Total Bilirubin (0.1-1.2) mg/dL AST (5-40) units/L ALT (7-56) units/L Alkaline Phosphatase (35-129) units/L Troponin T (0.00-0.029) ng/mL Total Protein (6.3-8.2) g/dL Albumin (3.9-5) g/dL Albumin/Globulin Ratio % Urine Color Yellow (Yellow) Urine Turbidity Hazy (Clear) Urine pH 7.0 (5.0-7.0) Ur Specific [place] 1.010 (1.003-1.030) Urine Protein 30 mg/dl (Negative) mg/dL Urine Glucose (UA) Negative (Negative) mg/dL Urine Ketones Negative (Negative) mg/dL Urine Blood Large A (Negative) Urine Nitrite Negative (Negative) Ur Reducing Substances Not Reportable Urine Bilirubin Negative (Negative) Urine Ictotest Not Reportable Urine Urobilinogen Not Reportable Ur Leukocyte Esterase Large (Negative) Urine WBC (Auto) > 182.0 H (0.0-6.0) /HPF Urine RBC (Auto) 17.0 (0.0-6.0) /HPF U Epithel Cells (Auto) 3.0 (0-13.0) /HPF Urine Bacteria (Auto) 1+ (Negative) /HPF Hyaline Casts 2 /LPF Urine Mucus Few /HPF 05/27/21 05/27/21 05/27/21 Range/Units 14:58 14:58 14:58 WBC (4.5-11.0) K/mm3 RBC (3.65-5.03) M/mm3 Hgb (10.1-14.3) gm/dl Hct (30.3-42.9) % MCV (79-97) fl MCH (28-32) pg MCHC (30-34) % RDW (13.2-15.2) % Plt Count (140-440) K/mm3 Lymph % (Auto) (13.4-35.0) % Emmons % (Auto) (0.0-7.3) % Eos % (Auto) (0.0-4.3) % Baso % (Auto) (0.0-1.8) % Lymph # (Auto) (1.2-5.4) K/mm3 Emmons # (Auto) (0.0-0.8) K/mm3 Eos # (Auto) (0.0-0.4) K/mm3 Baso # (Auto) (0.0-0.1) K/mm3 Seg Neutrophils % (40.0-70.0) % Seg Neutrophils # (1.8-7.7) K/mm3 Sodium 137 (137-145) mmol/L Potassium 4.8 (3.6-5.0) mmol/L Chloride 99.2 (98-107) mmol/L Carbon Dioxide 23 (22-30) mmol/L Anion Gap 20 mmol/L BUN 29 H (7-17) mg/dL Creatinine 2.0 H (0.6-1.2) mg/dL Estimated GFR 30 ml/min BUN/Creatinine Ratio 15 % Glucose 117 H (65-100) mg/dL POC Glucose (70-105) mg/dL Lactic Acid 2.70 H* (0.7-2.0) mmol/L Calcium 9.3 (8.4-10.2) mg/dL Total Bilirubin 0.20 (0.1-1.2) mg/dL AST 29 (5-40) units/L ALT 22 (7-56) units/L Alkaline Phosphatase 99 (35-129) units/L Troponin T 0.033 H (0.00-0.029) ng/mL Total Protein 7.2 (6.3-8.2) g/dL Albumin 3.7 L (3.9-5) g/dL Albumin/Globulin Ratio 1.1 % Urine Color (Yellow) Urine Turbidity (Clear) Urine pH (5.0-7.0) Ur Specific [place] (1.003-1.030) Urine Protein (Negative) mg/dL Urine Glucose (UA) (Negative) mg/dL Urine Ketones (Negative) mg/dL Urine Blood (Negative) Urine Nitrite (Negative) Ur Reducing Substances Urine Bilirubin (Negative) Urine Ictotest Urine Urobilinogen Ur Leukocyte Esterase (Negative) Urine WBC (Auto) (0.0-6.0) /HPF Urine RBC (Auto) (0.0-6.0) /HPF U Epithel Cells (Auto) (0-13.0) /HPF Urine Bacteria (Auto) (Negative) /HPF Hyaline Casts /LPF Urine Mucus /HPF - EKG Data -: EKG Interpreted by Me EKG shows normal: sinus rhythm, axis, intervals, QRS complexes 05/27/21 14:36 EKG obtained 1430 EKG interpreted by me Rate 70 bpm normal sinus rhythm normal axis diffuse flattened T waves no ST elevation - Medical Decision Making 1. Metabolic encephalopathy delirium due to UTI. Patient received IV ceftriaxone and IV fluid emergency department. Admitted to the hospital service. 2. Acute kidney injury vasomotor nephropathy, IV fluid therapy initiated Admitted to the hospitalist Critical care attestation.: If time is entered above; I have spent that time in minutes in the direct care of this critically ill patient, excluding procedure time. ED Disposition Clinical Impression: Metabolic encephalopathy, UTI (urinary tract infection), Acute kidney failure Disposition: ADMITTED INPATIENT Is pt being admited?: Yes Does the pt Need Aspirin: No Condition: Fair
--- NOTE | 2021-05-27 15:05 | XRay Report ---
CHEST 1 VIEW 05/27/2021 2:43 PM INDICATION / CLINICAL INFORMATION: Weakness lethargy. COMPARISON: 03/25/2020 FINDINGS: SUPPORT DEVICES: None. HEART / MEDIASTINUM: Stable. LUNGS / PLEURA: No significant pulmonary or pleural abnormality. No pneumothorax. Subsegmental atelec tasis in the left lung. ADDITIONAL FINDINGS: No significant additional findings. IMPRESSION: 1. No acute findings. Signer Name: Giovanni Tillman DO Signed: 05/27/2021 3:00 PM Workstation Name: [id number]
[2021-05-27 15:22] LABS: Bacteria,Urine 1+ /HPF (Negative); Hyaline Casts,Urine 2 /LPF; Mucus,Urine FEW /HPF
[2021-05-27 15:23] LABS: Bilirubin,Urine Negative (Negative); Blood,Urine Large (Negative); Color,Urine Yellow (Yellow); WBC,Urine > 182.0 /HPF (0.0-6.0)
[2021-05-27 15:37] LABS: Basophils # (Auto) 0.1 K/mm3 (0.0-0.1); Eosinophils # (Auto) 0.1 K/mm3 (0.0-0.4); Eosinophils % (Auto) 0.9 % (0.0-4.3); Hematocrit 31.7 % (30.3-42.9); Hemoglobin 10.5 gm/dl (10.1-14.3); Lymphocytes # (Auto) 1.6 K/mm3 (1.2-5.4); Mean Corpuscular HGB Conc 33 % (30-34); Mean Corpuscular Volume 101 fl (79-97); Monocytes # (Auto) 0.9 K/mm3 (0.0-0.8); Monocytes % (Auto) 15.3 % (0.0-7.3); Platelet Count 231 K/mm3 (140-440); Red Blood Count 3.14 M/mm3 (3.65-5.03); Red Cell Distribution Width 13.2 % (13.2-15.2)
[2021-05-27] MEDS ORDERED: SODIUM CHLORIDE 0.9% 1000 ML 1,000 ML IV ONE (15:52)
[2021-05-27 15:55] LABS: Albumin 3.7 g/dL (3.9-5); Calcium 9.3 mg/dL (8.4-10.2)
[2021-05-27] MEDS ORDERED: ALBUTEROL 2.5 MG/3 ML NEBU IH PRN (16:00)
[2021-05-27] MEDS ORDERED: ONDANSETRON 4 MG/2 ML INJ IV PRN (16:00)
[2021-05-27] MEDS ORDERED: HYDROmorphone 1 MG/1 ML INJ IV PRN (16:00)
[2021-05-27] MEDS ORDERED: SODIUM CHLORIDE 0.9% 1000 ML IV SOLN IV ONE (16:00)
[2021-05-27] MEDS ORDERED: ACETAMINOPHEN 325 MG TAB PO PRN ×2 (16:00)
--- NOTE | 2021-05-27 16:00 | History and Physical Report ---
History of Present Illness Chief complaint: She is getting weaker History of present illness: 66 YO Female with DM, HTN, Anemia of Chronic Disease, SVT, Vascular Dementia, Cerebral Atherosclerosis, Debility, LDD currently Bedbound and Nonambulatory presents to ED for evaluation. Patient is confused and lethargic at the time my evaluation and is unable to provide history. Patient history provided by EMS staff, ED staff, as well as the patient's daughter who was made available by telephone for interview. As per daughter the patient experienced increased confusion and increased weakness with diminished oral intake over the past 1 week. Patient currently requires 6/6 assistance with activities of daily living and has a palliative performance score 30%. EMS was notified and upon arrival the patient was found to be in distress and subsequently transported to [facility] for further care and evaluation of the aforementioned symptoms. The patient was seen and evaluated in the emergency department. All lab and imaging studies reviewed. The patient was found to have urinary tract infection complicated by sepsis, acidosis, toxic metabolic encephalopathy, with concomitant malnutrition. Patient admitted to medical floor and initiated on sepsis protocol due to increased risk of worsening symptoms. No further history is obtainable. No reports of fever, chills, chest pain, palpitation, productive cough, skin rash, recent ill contacts, known exposure to COVID-19. No prior admission for review. All medication listed at time of admission has been reconciled. Advanced care planning conducted in ED. Past History Past Medical History: diabetes, hypertension, other (See HPI) Past Surgical History: Other (Spine surgery) Social history: single. denies: smoking, alcohol abuse, prescription drug abuse Family history: hypertension Medications and Allergies Allergies Allergy/AdvReac Type Severity Reaction Status Date / Time Sulfa (Sulfonamide Allergy Unknown Verified 05/27/21 14:40 Antibiotics) Home Medications Medication Instructions Recorded Confirmed Last Taken Type RX: AtorvaSTATin 10 mg PO QAM #30 12/25/19 03/27/20 Unknown Rx RX: Baclofen [Lioresal] 20 mg PO Q8HR PRN #30 12/25/19 03/27/20 Unknown Rx RX: Glimepiride 1 mg PO QDAY 30 Days #30 tablet 12/25/19 03/27/20 Unknown Rx metFORMIN 500 mg PO BID #60 12/25/19 03/27/20 Unknown Rx RX: Aspirin EC [Halfprin EC] 81 mg PO QDAY #30 tablet 03/27/20 Unknown Rx RX: Metoprolol [Lopressor TAB] 50 mg PO BID #60 tablet 03/27/20 Unknown Rx levoFLOXacin [Levaquin] 750 mg PO QDAY #3 tablet 03/27/20 Unknown Rx Ciprofloxacin HCl [Ciprofloxacin 500 mg PO Q12HR #10 tab 04/05/20 Unknown Rx TAB] Active Meds: Active Medications Sodium Chloride (Nacl 0.9% 1000 Ml) 1,000 mls @ 999 mls/hr IV BOLUS ONE Stop: 05/27/21 16:52 Review of Systems ROS unobtainable: due to mental status Exam - Constitutional Vitals: Temp Pulse Resp BP Pulse Ox 97.9 F 70 14 132/73 100 05/27/21 14:40 05/27/21 14:46 05/27/21 14:46 05/27/21 14:46 05/27/21 15:01 General appearance: Present: mild distress, cachectic - EENT Eyes: Present: PERRL ENT: clear oral mucosa, hearing decreased - Neck Neck: Present: supple, normal ROM - Respiratory Respiratory: bilateral: CTA - Cardiovascular Heart Sounds: Present: S1 & S2. Absent: rub, click - Extremities Extremities: no ischemia Peripheral Pulses: abnormal (Capillary refill greater than 3.5 seconds) - Abdominal General gastrointestinal: Present: soft, non-tender, non-distended, normal bowel sounds Female genitourinary: Present: normal - Integumentary Integumentary: Present: dry, clammy, decreased turgor - Musculoskeletal Musculoskeletal: generalized weakness - Psychiatric Psychiatric: no appropriate mood/affect, no intact judgment & insight, no memory intact - Neurologic Neurologic: CNII-XII intact, no focal deficits, moves all extremities, no gait normal HEART Score - HEART Score Troponin: Troponin T 0.033 ng/mL (0.00-0.029) H 05/27/21 14:58 Results - Labs CBC & Chem 7: 05/27/21 14:58 05/27/21 14:58 Labs: Abnormal lab results 05/27/21 05/27/21 05/27/21 Range/Units 14:22 14:36 14:58 RBC 3.14 L (3.65-5.03) M/mm3 MCV 101 H (79-97) fl MCH 34 H (28-32) pg [place]field % (Auto) 15.3 H (0.0-7.3) % [place] # (Auto) 0.9 H (0.0-0.8) K/mm3 BUN (7-17) mg/dL Creatinine (0.6-1.2) mg/dL Glucose (65-100) mg/dL POC Glucose 108 H (70-105) mg/dL Lactic Acid (0.7-2.0) mmol/L Troponin T (0.00-0.029) ng/mL Albumin (3.9-5) g/dL Urine Blood Large A (Negative) Urine WBC (Auto) > 182.0 H (0.0-6.0) /HPF 05/27/21 05/27/21 05/27/21 Range/Units 14:58 14:58 14:58 RBC (3.65-5.03) M/mm3 MCV (79-97) fl MCH (28-32) pg [place] % (Auto) (0.0-7.3) % [place] # (Auto) (0.0-0.8) K/mm3 BUN 29 H (7-17) mg/dL Creatinine 2.0 H (0.6-1.2) mg/dL Glucose 117 H (65-100) mg/dL POC Glucose (70-105) mg/dL Lactic Acid 2.70 H* (0.7-2.0) mmol/L Troponin T 0.033 H (0.00-0.029) ng/mL Albumin 3.7 L (3.9-5) g/dL Urine Blood (Negative) Urine WBC (Auto) (0.0-6.0) /HPF Assessment and Plan - Patient Problems (1) Sepsis Current Visit: Yes Status: Acute Plan to address problem: Sepsis protocol: CBC, CMP, IV antibiotic therapy, IV fluid resuscitation therapy, serial lactic acid level, maintain mean arterial pressure greater than or equal to 65, monitor urine output every shift, monitor fluid balance, blood culture. (2) UTI (urinary tract infection) Current Visit: Yes Status: Acute Qualifiers: Encounter type: initial encounter Plan to address problem: Urinalysis, CBC, IV antibiotic therapy, supportive care. (3) Toxic metabolic encephalopathy Current Visit: Yes Status: Acute Plan to address problem: Supportive care, treat sepsis, IV fluid resuscitation therapy. Repeat BMP in a.m. (4) Malnutrition Current Visit: Yes Status: Acute Qualifiers: Malnutrition type: protein-calorie malnutrition Plan to address problem: Increase protein intake, dietary supplementation when awake and alert only. (5) Acidosis Current Visit: Yes Status: Acute Plan to address problem: IV fluid resuscitation therapy, serial lactic acid level, (6) DVT prophylaxis Current Visit: Yes Status: Acute Plan to address problem: SCD to bilateral lower extremities while in bed, prophylactic anticoagulation (7) Advance care planning Current Visit: Yes Status: Acute Plan to address problem: Disease education conducted, care plan discussed, diagnoses discussed, prognosis discussed, patient is full code, patient daughter Zee Hyde [phone]. Patient daughter acknowledges understanding and agreement with care plan. Patient daughter request home hospice evaluation. [facility] care team notified as per family request. +30 minutes.
[2021-05-27] MEDS ORDERED: BACLOFEN 10 MG TAB PO PRN (16:03)
[2021-05-27 16:10] LABS: Chol/HDL Ratio 3.94 %
[2021-05-27] MEDS: cefTRIAXone/NS 1 GM/50 ML 1 GM/50 ML BAG IV SCH (19:05)
[2021-05-27] MEDS: oxyCODONE /ACETAMINOPHEN 5-325MG TAB PO PRN (23:10)
[2021-05-27] MEDS: HEPARIN 5,000 UNIT/1 ML VIAL SUB-Q SCH (23:11)
[2021-05-28] MEDS: HYDROmorphone 1 MG/1 ML INJ IV PRN (00:14)
[2021-05-28 06:47] LABS: Hematocrit 30.6 % (30.3-42.9); Hemoglobin 10.1 gm/dl (10.1-14.3); Mean Corpuscular HGB Conc 33 % (30-34); Mean Corpuscular Volume 104 fl (79-97); Platelet Count 193 K/mm3 (140-440); Red Blood Count 2.96 M/mm3 (3.65-5.03); Red Cell Distribution Width 13.3 % (13.2-15.2)
[2021-05-28 07:03] LABS: Albumin 3.4 g/dL (3.9-5); Calcium 7.8 mg/dL (8.4-10.2)
[2021-05-28 07:46] LABS: Total Cells Counted 100
[2021-05-28 07:47] LABS: Platelet Estimate Consistent w Auto; RBC Morphology Normal
[2021-05-28] MEDS: HEPARIN 5,000 UNIT/1 ML VIAL SUB-Q SCH ×2 (09:11→22:59)
[2021-05-28] MEDS: ASPIRIN EC 81 MG TAB PO SCH (10:00)
--- NOTE | 2021-05-28 11:42 | Progress Note ---
Assessment and Plan Assessment and plan: 66 YO Female with DM, HTN, Anemia of Chronic Disease, SVT, Vascular Dementia, Cerebral Atherosclerosis, Debility, LDD currently Bedbound and Nonambulatory presents to ED acute metabolic encephalopathy secondary to urosepsis. #Acute metabolic encephalopathy-improving #Urosepsis #Lactic acidosis-resolved -Encephalopathy likely secondary to UTI/urosepsis -UA revealing negative nitrite, large leukocyte esterase, WBC >182, 1+ bacteria. Lactic acid 2.7--> 1.3 -Pending urine and blood culture -Continue Rocephin 1 g every 24 (started 05/27/2021). Once mentation is back to baseline, patient can be transitioned to oral antibiotics. -Continue to monitor #Possible protein caloric malnutrition -BMI 22; however, patient remains bedbound. -Nutrition consulted; appreciate recs -Restarted regular diet #Hyperlipidemia -Restart home statin #Advanced care planning -Disease education conducted, care plan discussed, diagnoses discussed, prognosis discussed, and patient acknowledges understanding with care plan -Time: +20 minutes Disposition Plan: Continue medical management Total Time Spent with Patient (Minutes): 40 minutes History Interval history: No acute events overnight. Hospitalist Physical - Constitutional Vitals: Temp Pulse Resp BP Pulse Ox 98.1 F 54 L 12 133/71 96 05/28/21 04:30 05/28/21 04:30 05/28/21 04:30 05/28/21 04:30 05/28/21 09:04 General appearance: Present: no acute distress, cachectic - EENT Eyes: Present: PERRL, EOM intact ENT: hearing intact, clear oral mucosa, dentition normal - Neck Neck: Present: supple, normal ROM - Respiratory Respiratory effort: normal Respiratory: bilateral: CTA - Cardiovascular Rhythm: regular Heart Sounds: Present: S1 & S2 - Extremities Extremities: no ischemia, pulses intact, pulses symmetrical, No edema, normal temperature, normal color Extremity abnormal: other (Bedbound with generalized weakness) Peripheral Pulses: within normal limits - Abdominal General gastrointestinal: soft, non-tender, non-distended, normal bowel sounds - Integumentary Integumentary: Present: clear, warm, dry - Psychiatric Psychiatric: memory intact, cooperative, other (Limited insight) - Neurologic Neurologic: CNII-XII intact, other (Generalized weakness of lower extremities) - Allied Health Allied health notes reviewed: nursing HEART Score - HEART Score Troponin: Troponin T 0.033 ng/mL (0.00-0.029) H 05/27/21 14:58 Results - Labs CBC & Chem 7: 05/28/21 06:12 05/28/21 06:12 Labs: Laboratory Last Values WBC 3.9 K/mm3 (4.5-11.0) L 05/28/21 06:12 RBC 2.96 M/mm3 (3.65-5.03) L 05/28/21 06:12 Hgb 10.1 gm/dl (10.1-14.3) 05/28/21 06:12 Hct 30.6 % (30.3-42.9) 05/28/21 06:12 MCV 104 fl (79-97) H 05/28/21 06:12 MCH 34 pg (28-32) H 05/28/21 06:12 MCHC 33 % (30-34) 05/28/21 06:12 RDW 13.3 % (13.2-15.2) 05/28/21 06:12 Plt Count 193 K/mm3 (140-440) 05/28/21 06:12 Lymph % (Auto) 27.0 % (13.4-35.0) 05/27/21 14:58 [place] % (Auto) Lead Programmer Analyst 05/28/21 06:12 Eos % (Auto) 0.9 % (0.0-4.3) 05/27/21 14:58 Baso % (Auto) 1.0 % (0.0-1.8) 05/27/21 14:58 Lymph # (Auto) 1.6 K/mm3 (1.2-5.4) 05/27/21 14:58 [place] # (Auto) 0.9 K/mm3 (0.0-0.8) H 05/27/21 14:58 Eos # (Auto) 0.1 K/mm3 (0.0-0.4) 05/27/21 14:58 Baso # (Auto) 0.1 K/mm3 (0.0-0.1) 05/27/21 14:58 Add Manual Diff Complete 05/28/21 06:12 Total Counted 100 05/28/21 06:12 Seg Neutrophils % Lead Programmer Analyst 05/28/21 06:12 Seg Neuts % (Manual) 50.0 % (40.0-70.0) 05/28/21 06:12 Lymphocytes % (Manual) 36.0 % (13.4-35.0) H 05/28/21 06:12 Monocytes % (Manual) 14.0 % (0.0-7.3) H 05/28/21 06:12 Nucleated RBC % Not Reportable 05/28/21 06:12 Seg Neutrophils # 3.4 K/mm3 (1.8-7.7) 05/27/21 14:58 Seg Neutrophils # Man 2.0 K/mm3 (1.8-7.7) 05/28/21 06:12 Band Neutrophils # 0.0 K/mm3 05/28/21 06:12 Lymphocytes # (Manual) 1.4 K/mm3 (1.2-5.4) 05/28/21 06:12 Abs React Lymphs (Man) 0.0 K/mm3 05/28/21 06:12 Monocytes # (Manual) 0.5 K/mm3 (0.0-0.8) 05/28/21 06:12 Eosinophils # (Manual) 0.0 K/mm3 (0.0-0.4) 05/28/21 06:12 Basophils # (Manual) 0.0 K/mm3 (0.0-0.1) 05/28/21 06:12 Metamyelocytes # 0.0 K/mm3 05/28/21 06:12 Myelocytes # 0.0 K/mm3 05/28/21 06:12 Promyelocytes # 0.0 K/mm3 05/28/21 06:12 Blast Cells # 0.0 K/mm3 05/28/21 06:12 WBC Morphology Not Reportable 05/28/21 06:12 Hypersegmented Neuts Not Reportable 05/28/21 06:12 Hyposegmented Neuts Not Reportable 05/28/21 06:12 Hypogranular Neuts Not Reportable 05/28/21 06:12 Smudge Cells Not Reportable 05/28/21 06:12 Toxic Granulation Not Reportable 05/28/21 06:12 Toxic Vacuolation Not Reportable 05/28/21 06:12 Dohle Bodies Not Reportable 05/28/21 06:12 Pelger-Huet Anomaly Not Reportable 05/28/21 06:12 Nancy Rods Not Reportable 05/28/21 06:12 Platelet Estimate Consistent w auto 05/28/21 06:12 Clumped Platelets Not Reportable 05/28/21 06:12 Plt Clumps, EDTA Not Reportable 05/28/21 06:12 Large Platelets Not Reportable 05/28/21 06:12 Giant Platelets Not Reportable 05/28/21 06:12 Platelet Satelliting Not Reportable 05/28/21 06:12 Plt Morphology Comment Not Reportable 05/28/21 06:12 RBC Morphology Normal 05/28/21 06:12 Dimorphic RBCs Not Reportable 05/28/21 06:12 Polychromasia Not Reportable 05/28/21 06:12 Hypochromasia Not Reportable 05/28/21 06:12 Poikilocytosis Not Reportable 05/28/21 06:12 Anisocytosis Not Reportable 05/28/21 06:12 Microcytosis Not Reportable 05/28/21 06:12 Macrocytosis Not Reportable 05/28/21 06:12 Spherocytes Not Reportable 05/28/21 06:12 Pappenheimer Bodies Not Reportable 05/28/21 06:12 Sickle Cells Not Reportable 05/28/21 06:12 Target Cells Not Reportable 05/28/21 06:12 Tear Drop Cells Not Reportable 05/28/21 06:12 Ovalocytes Not Reportable 05/28/21 06:12 Helmet Cells Not Reportable 05/28/21 06:12 Mercer-Kelford Bodies Not Reportable 05/28/21 06:12 Bradford Rings Not Reportable 05/28/21 06:12 Noni Cells Not Reportable 05/28/21 06:12 Bite Cells Not Reportable 05/28/21 06:12 Crenated Cell Not Reportable 05/28/21 06:12 Elliptocytes Not Reportable 05/28/21 06:12 Acanthocytes (Spur) Not Reportable 05/28/21 06:12 Rouleaux Not Reportable 05/28/21 06:12 Hemoglobin C Crystals Not Reportable 05/28/21 06:12 Schistocytes Not Reportable 05/28/21 06:12 Malaria parasites Not Reportable 05/28/21 06:12 Delvin Bodies Not Reportable 05/28/21 06:12 Hem Pathologist Commnt No 05/28/21 06:12 Sodium 138 mmol/L (137-145) 05/28/21 06:12 Potassium 4.4 mmol/L (3.6-5.0) 05/28/21 06:12 Chloride 108.1 mmol/L (98-107) H 05/28/21 06:12 Carbon Dioxide 19 mmol/L (22-30) L 05/28/21 06:12 Anion Gap 15 mmol/L 05/28/21 06:12 BUN 24 mg/dL (7-17) H 05/28/21 06:12 Creatinine 1.6 mg/dL (0.6-1.2) H 05/28/21 06:12 Estimated GFR 39 ml/min 05/28/21 06:12 BUN/Creatinine Ratio 15 % 05/28/21 06:12 Glucose 94 mg/dL (65-100) 05/28/21 06:12 POC Glucose 108 mg/dL (70-105) H 05/27/21 14:22 Lactic Acid 1.30 mmol/L (0.7-2.0) 05/28/21 06:12 Calcium 7.8 mg/dL (8.4-10.2) L D 05/28/21 06:12 Total Bilirubin 0.20 mg/dL (0.1-1.2) 05/28/21 06:12 AST 26 units/L (5-40) 05/28/21 06:12 ALT 19 units/L (7-56) 05/28/21 06:12 Alkaline Phosphatase 93 units/L (35-129) 05/28/21 06:12 Troponin T 0.033 ng/mL (0.00-0.029) H 05/27/21 14:58 Total Protein 6.7 g/dL (6.3-8.2) 05/28/21 06:12 Albumin 3.4 g/dL (3.9-5) L 05/28/21 06:12 Albumin/Globulin Ratio 1.0 % 05/28/21 06:12 Triglycerides 153 mg/dL (2-149) H 05/27/21 14:58 Cholesterol 138 mg/dL (50-199) 05/27/21 14:58 LDL Cholesterol Direct 83 mg/dL (50-130) 05/27/21 14:58 HDL Cholesterol 35 mg/dL (40-59) L 05/27/21 14:58 Cholesterol/HDL Ratio 3.94 % 05/27/21 14:58 Urine Color Yellow (Yellow) 05/27/21 14:36 Urine Turbidity Hazy (Clear) 05/27/21 14:36 Urine pH 7.0 (5.0-7.0) 05/27/21 14:36 Ur Specific [place] 1.010 (1.003-1.030) 05/27/21 14:36 Urine Protein 30 mg/dl mg/dL (Negative) 05/27/21 14:36 Urine Glucose (UA) Negative mg/dL (Negative) 05/27/21 14:36 Urine Ketones Negative mg/dL (Negative) 05/27/21 14:36 Urine Blood Large (Negative) A 05/27/21 14:36 Urine Nitrite Negative (Negative) 05/27/21 14:36 Ur Reducing Substances Not Reportable 05/27/21 14:36 Urine Bilirubin Negative (Negative) 05/27/21 14:36 Urine Ictotest Not Reportable 05/27/21 14:36 Urine Urobilinogen Not Reportable 05/27/21 14:36 Ur Leukocyte Esterase Large (Negative) 05/27/21 14:36 Urine WBC (Auto) > 182.0 /HPF (0.0-6.0) H 05/27/21 14:36 Urine RBC (Auto) 17.0 /HPF (0.0-6.0) 05/27/21 14:36 U Epithel Cells (Auto) 3.0 /HPF (0-13.0) 05/27/21 14:36 Urine Bacteria (Auto) 1+ /HPF (Negative) 05/27/21 14:36 Hyaline Casts 2 /LPF 05/27/21 14:36 Urine Mucus Few /HPF 05/27/21 14:36 Blood Type O POSITIVE 05/27/21 17:14 Antibody Screen Negative 05/27/21 17:14 Microbiology: Microbiology 05/27/21 17:14 Peripheral/Venous Blood Culture - Preliminary Culture in Progress 05/27/21 17:14 Peripheral/Venous Blood Culture - Preliminary Culture in Progress Active Medications - Current Medications Current Medications: Generic Name Dose Route Start Last Admin Trade Name Freq PRN Reason Stop Dose Admin Acetaminophen 650 mg 05/27/21 16:00 Acetaminophen 325 Mg Tab PO Q4H PRN Pain MILD(1-3)/Fever >100.5/AARON Acetaminophen 650 mg 05/27/21 16:00 05/27/21 23:10 Acetaminophen 325 Mg Tab PO 650 mg Q6H PRN Administration Pain, Mild (1-3) Albuterol 2.5 mg 05/27/21 16:00 Albuterol 2.5 Mg/3 Ml Nebu IH Q4HRT PRN Shortness Of Breath Aspirin 81 mg 05/28/21 10:00 Aspirin Ec 81 Mg Tab PO QDAY [facility] Atorvastatin Calcium 10 mg 05/28/21 10:00 Atorvastatin 10 Mg Tab PO QAM MATT Baclofen 20 mg 05/27/21 16:03 05/27/21 23:10 Baclofen 10 Mg Tab PO 20 mg Q8HR PRN Administration Pain Heparin Sodium (Porcine) 5,000 unit 05/27/21 22:00 05/28/21 09:11 Heparin 5,000 Unit/1 Ml Vial SUB-Q 5,000 unit Q12HR MATT Administration Hydromorphone HCl 0.25 mg 05/27/21 16:00 05/28/21 00:14 Hydromorphone 1 Mg/1 Ml Inj IV 0.25 mg Q4H PRN Administration Pain, Moderate (4-6) Hydromorphone HCl 0.5 mg 05/27/21 16:00 Hydromorphone 1 Mg/1 Ml Inj IV Q23H PRN Pain , Severe (7-10) Ceftriaxone Sodium 1 gm in 50 mls @ 100 mls/hr 05/27/21 16:00 05/27/21 19:05 Rocephin/Ns 1 Gm/50 Ml IV 05/29/21 16:29 Not Given Q24H [facility] Protocol Ondansetron HCl 4 mg 05/27/21 16:00 Ondansetron 4 Mg/2 Ml Inj IV Q8H PRN Nausea And Vomiting Oxycodone/Acetaminophen 1 tab 05/27/21 16:00 05/27/21 23:10 Oxycodone /Acetaminophen 5-325mg Tab PO 1 tab Q16H PRN Administration Pain, Moderate (4-6) Sodium Chloride 10 ml 05/27/21 22:00 05/28/21 09:12 Sodium Chloride 0.9% 10 Ml Flush Syringe IV 10 ml BID MATT Administration Sodium Chloride 10 ml 05/27/21 16:00 Sodium Chloride 0.9% 10 Ml Flush Syringe IV PRN PRN LINE FLUSH
[2021-05-28] MEDS: cefTRIAXone/NS 1 GM/50 ML 1 GM/50 ML BAG IV SCH (17:03)
[2021-05-29] MEDS: oxyCODONE /ACETAMINOPHEN 5-325MG TAB PO PRN (05:54)
[2021-05-29 07:39] LABS: Hematocrit 31.2 % (30.3-42.9); Hemoglobin 10.3 gm/dl (10.1-14.3); Mean Corpuscular HGB Conc 33 % (30-34); Mean Corpuscular Volume 101 fl (79-97); Platelet Count 218 K/mm3 (140-440); Red Blood Count 3.08 M/mm3 (3.65-5.03); Red Cell Distribution Width 13.4 % (13.2-15.2)
[2021-05-29 07:59] LABS: Calcium 8.8 mg/dL (8.4-10.2)
[2021-05-29] MEDS: HYDROmorphone 1 MG/1 ML INJ IV PRN (10:20)
[2021-05-29] MEDS: HEPARIN 5,000 UNIT/1 ML VIAL SUB-Q SCH (10:41)
[2021-05-29] MEDS: ASPIRIN EC 81 MG TAB PO SCH (10:41)
--- NOTE | 2021-05-29 10:53 | Discharge Summary ---
Providers - Providers Date of Admission: 05/27/21 16:00 Attending physician: HERMELINDO GAINES MD 05/28/21 07:31 Consult to Dietitian/Nutrition [CONS] Routine Physician Instructions: Reason For Exam: Concern for malnutrition Reason for Consult: Malnutrition Primary care physician: ALESSANDRA PARRA MD Hospitalization Condition: Fair Disposition: 30 STILL A PATIENT Exam - Constitutional Vitals: Temp Pulse Resp BP Pulse Ox 98.0 F 69 20 174/86 97 05/29/21 05:08 05/29/21 05:08 05/29/21 05:08 05/29/21 05:08 05/29/21 05:08 Plan Care Plan Goals: You can contact the hospice agency for any of Mrs. Hansen health needs. Please complete the last few dose for antibiotics. Follow up with: ALESSANDRA PARRA MD [Primary Care Provider] - 7 Days Prescriptions: Ciprofloxacin HCl [Ciprofloxacin TAB] 500 mg PO BID 5 Days #20 tablet
[2021-05-29] MEDS: cefTRIAXone/NS 1 GM/50 ML 1 GM/50 ML BAG IV SCH (15:10)
[2021-05-29 15:48] LABS: Total Cells Counted 100
[2021-05-29 15:49] LABS: Platelet Estimate Consistent w Auto; RBC Morphology Normal
[2021-05-29 19:39] VITALS: BP 169/95
--- NOTE | 2021-05-31 10:00 | Electrocardiograph Report ---
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
== END 2021-05-29 19:46 | disposition hospice, home (50) | DRG 871 ==
LOC: ED 14:18 → 3A 16:00
PROVIDERS: ADMIT Internal Medicine; ATTEND Student in an Organized Health Care Education/Training Program
DX: A41.9 Sepsis, unspecified organism (principal); G92.9 Unspecified toxic encephalopathy; N39.0 Urinary tract infection, site not specified; E46 Unspecified protein-calorie malnutrition; N17.9 Acute kidney failure, unspecified; Z68.22 Body mass index [BMI] 22.0-22.9, adult; I10 Essential (primary) hypertension; E11.9 Type 2 diabetes mellitus without complications; F03.90 Unspecified dementia, unspecified severity, without behavioral disturbance, psychotic disturbance, mood disturbance, and anxiety; D63.8 Anemia in other chronic diseases classified elsewhere; F01.50 Vascular dementia, unspecified severity, without behavioral disturbance, psychotic disturbance, mood disturbance, and anxiety; R53.81 Other malaise; Z74.01 Bed confinement status; Z82.49 Family history of ischemic heart disease and other diseases of the circulatory system; Z79.82 Long term (current) use of aspirin; Z79.84 Long term (current) use of oral hypoglycemic drugs; Z88.2 Allergy status to sulfonamides
CPT/HCPCS: 36415; 71045; 80048; 80053; 80061; 81001; 82140; 82962; 83735; 84100; 84484; 85007; 85025; 86850; 86900; 86901; 87040; 87086; 93005; 94640; G0378; J0696; J1170; J1644; J7030

== ENCOUNTER 2021-06-02 14:43 | Inpatient (IN) | payer OTHER, MEDICARE ==
--- NOTE | 2021-06-02 15:22 | Emergency Department Report ---
ED Altered Mental Status HPI - General Chief Complaint: Altered Mental Status Stated Complaint: SEPSIS Time Seen by Provider: 06/02/21 15:19 Source: EMS Mode of arrival: Stretcher Limitations: No Limitations - History of Present Illness Initial Comments: Patient is brought in by ambulance secondary to altered status. History is obtained primarily from EMS. Patient is confused and will not interact appropriately. She will simply stare blankly. She will not verbalize. She does look around and track. [facility] that they were called because the patient was altered. She normally is conversant. There is some concern about infectious pathology because she felt warm. She apparently was recently here for a urinary infection. There was no reported trauma. There has been no reported vomiting or diarrhea. There have been no reported rash. - Related Data Home Medications Medication Instructions Recorded Confirmed Last Taken Atorvastatin (Nf) [Lipitor (Nf)] 20 mg PO QDAY 05/28/21 05/28/21 1 Day Ago ~05/27/21 Azo Cranberry 1 tab PO DAILY 05/28/21 05/28/21 1 Day Ago ~05/27/21 Baclofen 20 mg PO DAILY 05/28/21 05/28/21 1 Day Ago ~05/27/21 Cholecalciferol Vit D3 1,000 units PO DAILY 05/28/21 05/28/21 1 Day Ago ~05/27/21 Gabapentin 100 mg PO DAILY 05/28/21 05/28/21 1 Day Ago ~05/27/21 Multivit-Min/Iron/Folic Acid/K 1 each PO DAILY 05/28/21 05/28/21 1 Day Ago [Adults Multivitamin Tablet] ~05/27/21 metFORMIN [Glucophage] 500 mg PO QDAY 05/28/21 05/28/21 1 Day Ago ~05/27/21 Previous Rx's Medication Instructions Recorded Last Taken Type Metoprolol [Lopressor TAB] 50 mg PO BID #60 tablet 03/27/20 1 Day Ago Rx ~05/27/21 Ciprofloxacin HCl [Ciprofloxacin 500 mg PO BID 5 Days #20 tablet 05/29/21 Unknown Rx TAB] Allergies Allergy/AdvReac Type Severity Reaction Status Date / Time Sulfa (Sulfonamide Allergy Unknown Verified 05/27/21 14:40 Antibiotics) ED Review of Systems ROS: Stated complaint: SEPSIS Other details as noted in HPI Comment: Unobtainable due to pts medical conditions (Altered mental status) ED Past Medical Hx - Past Medical History Hx Hypertension: Yes Hx Diabetes: Yes Hx Dementia: Yes Additional medical history: DEBILITY- IN WHEELCHAIR P HAVING 2 BACK SURGERIES; THIN/FRAIL. cannot be obtained for the patient secondary to altered mental stat us - Surgical History Additional Surgical History: 5 back surgeries and left ankle - Social History Smoking Status: Former Smoker Substance Use Type: Other ( cannot be obtained for the patient secondary to altered mental status) - Medications Home Medications: Home Medications Medication Instructions Recorded Confirmed Last Taken Type Metoprolol [Lopressor TAB] 50 mg PO BID #60 tablet 03/27/20 05/28/21 1 Day Ago Rx ~05/27/21 Atorvastatin (Nf) [Lipitor (Nf)] 20 mg PO QDAY 05/28/21 05/28/21 1 Day Ago History ~05/27/21 Azo Cranberry 1 tab PO DAILY 05/28/21 05/28/21 1 Day Ago History ~05/27/21 Baclofen 20 mg PO DAILY 05/28/21 05/28/21 1 Day Ago History ~05/27/21 Cholecalciferol Vit D3 1,000 units PO DAILY 05/28/21 05/28/21 1 Day Ago History ~05/27/21 Gabapentin 100 mg PO DAILY 05/28/21 05/28/21 1 Day Ago History ~05/27/21 Multivit-Min/Iron/Folic Acid/K 1 each PO DAILY 05/28/21 05/28/21 1 Day Ago History [Adults Multivitamin Tablet] ~05/27/21 metFORMIN [Glucophage] 500 mg PO QDAY 05/28/21 05/28/21 1 Day Ago History ~05/27/21 Ciprofloxacin HCl [Ciprofloxacin 500 mg PO BID 5 Days #20 tablet 05/29/21 Unknown Rx TAB] ED Physical Exam - General Limitations: Altered Mental Status, Physical Limitation ( Lotrimin disability), Other ( pulse ox was noted and low. This improved with treatment.) General appearance: other ( Somnolent) - Head Head exam: Present: atraumatic, normocephalic, normal inspection - Eye Eye exam: Present: normal appearance, EOMI. Absent: scleral icterus, conjunctival injection - ENT ENT exam: Present: mucous membranes dry, normal external ear exam - Neck Neck exam: Present: normal inspection. Absent: lymphadenopathy - Respiratory Respiratory exam: Present: normal lung sounds bilaterally. Absent: respiratory distress - Cardiovascular Cardiovascular Exam: Present: regular rate, normal rhythm - GI/Abdominal GI/Abdominal exam: Present: soft. Absent: distended, guarding, rebound, pulsatile mass - Extremities Exam Extremities exam: Present: normal capillary refill, other ( contractures in both lower extremities). Absent: pedal edema - Back Exam Back exam: Absent: rash noted - Neurological Exam Neurological exam: Present: other ( somewhat but arousable) - Psychiatric Psychiatric exam: Present: other ( nonverbal) - Skin Skin exam: Present: dry, other ( hot to touch) ED Course Vital Signs 06/02/21 06/02/21 06/02/21 15:24 15:33 17:55 Temperature 102.4 F H 102.2 F H Pulse Rate 86 88 Respiratory 17 16 Rate Blood Pressure 151/75 144/75 [Left] O2 Sat by Pulse 95 95 96 Oximetry - Reevaluation(s) Reevaluation #1: 06/02/21 15:22 IV labs ordered. chest x-ray was ordered. Old records reviewed. Reevaluation #2: 06/02/21 20:00 labs and work-up in been complete. Old records have been reviewed. We will proceed with admission. Because of the healthcare acquired urinary tract infection, patient was given cefepime. Prior urine culture has been reviewed. Prior blood cultures have been reviewed. - Lab Data Result diagrams: 06/02/21 16:41 06/02/21 16:41 Lab Results 06/02/21 06/02/21 06/02/21 Range/Units 15:13 16:41 16:41 WBC 5.9 (4.5-11.0) K/mm3 RBC 3.16 L (3.65-5.03) M/mm3 Hgb 10.7 (10.1-14.3) gm/dl Hct 32.3 (30.3-42.9) % MCV 102 H (79-97) fl MCH 34 H (28-32) pg MCHC 33 (30-34) % RDW 13.1 L (13.2-15.2) % Plt Count 246 (140-440) K/mm3 Lymph % (Auto) 39.9 H (13.4-35.0) % [place] % (Auto) 8.7 H (0.0-7.3) % Eos % (Auto) 1.0 (0.0-4.3) % Baso % (Auto) 0.8 (0.0-1.8) % Lymph # (Auto) 2.4 (1.2-5.4) K/mm3 [place] # (Auto) 0.5 (0.0-0.8) K/mm3 Eos # (Auto) 0.1 (0.0-0.4) K/mm3 Baso # (Auto) 0.0 (0.0-0.1) K/mm3 Seg Neutrophils % 49.6 (40.0-70.0) % Seg Neutrophils # 2.9 (1.8-7.7) K/mm3 Sodium 132 L D (137-145) mmol/L Potassium 4.6 (3.6-5.0) mmol/L Chloride 100.0 (98-107) mmol/L Carbon Dioxide 19 L (22-30) mmol/L Anion Gap 18 mmol/L BUN 25 H (7-17) mg/dL Creatinine 1.9 H (0.6-1.2) mg/dL Estimated GFR 32 ml/min BUN/Creatinine Ratio 13 % Glucose 108 H (65-100) mg/dL POC Glucose 90 (70-105) mg/dL Lactic Acid (0.7-2.0) mmol/L Calcium 8.1 L (8.4-10.2) mg/dL Total Bilirubin 0.20 (0.1-1.2) mg/dL AST 40 (5-40) units/L ALT 23 (7-56) units/L Alkaline Phosphatase 83 (35-129) units/L Troponin T 0.032 H (0.00-0.029) ng/mL Total Protein 7.3 (6.3-8.2) g/dL Albumin 3.6 L (3.9-5) g/dL Albumin/Globulin Ratio 1.0 % Urine Color (Yellow) Urine Turbidity (Clear) Urine pH (5.0-7.0) Ur Specific [place] (1.003-1.030) Urine Protein (Negative) mg/dL Urine Glucose (UA) (Negative) mg/dL Urine Ketones (Negative) mg/dL Urine Blood (Negative) Urine Nitrite (Negative) Urine Bilirubin (Negative) Urine Urobilinogen (<2.0) mg/dL Ur Leukocyte Esterase (Negative) Urine WBC (Auto) (0.0-6.0) /HPF Urine RBC (Auto) (0.0-6.0) /HPF U Epithel Cells (Auto) (0-13.0) /HPF Urine Bacteria (Auto) (Negative) /HPF Urine Mucus /HPF 06/02/21 06/02/21 Range/Units 16:41 Unknown WBC (4.5-11.0) K/mm3 RBC (3.65-5.03) M/mm3 Hgb (10.1-14.3) gm/dl Hct (30.3-42.9) % MCV (79-97) fl MCH (28-32) pg MCHC (30-34) % RDW (13.2-15.2) % Plt Count (140-440) K/mm3 Lymph % (Auto) (13.4-35.0) % [place] % (Auto) (0.0-7.3) % Eos % (Auto) (0.0-4.3) % Baso % (Auto) (0.0-1.8) % Lymph # (Auto) (1.2-5.4) K/mm3 [place] # (Auto) (0.0-0.8) K/mm3 Eos # (Auto) (0.0-0.4) K/mm3 Baso # (Auto) (0.0-0.1) K/mm3 Seg Neutrophils % (40.0-70.0) % Seg Neutrophils # (1.8-7.7) K/mm3 Sodium (137-145) mmol/L Potassium (3.6-5.0) mmol/L Chloride (98-107) mmol/L Carbon Dioxide (22-30) mmol/L Anion Gap mmol/L BUN (7-17) mg/dL Creatinine (0.6-1.2) mg/dL Estimated GFR ml/min BUN/Creatinine Ratio % Glucose (65-100) mg/dL POC Glucose (70-105) mg/dL Lactic Acid 1.30 (0.7-2.0) mmol/L Calcium (8.4-10.2) mg/dL Total Bilirubin (0.1-1.2) mg/dL AST (5-40) units/L ALT (7-56) units/L Alkaline Phosphatase (35-129) units/L Troponin T (0.00-0.029) ng/mL Total Protein (6.3-8.2) g/dL Albumin (3.9-5) g/dL Albumin/Globulin Ratio % Urine Color Yellow (Yellow) Urine Turbidity Cloudy (Clear) Urine pH 6.0 (5.0-7.0) Ur Specific [place] 1.010 (1.003-1.030) Urine Protein 100 mg/dl (Negative) mg/dL Urine Glucose (UA) Neg (Negative) mg/dL Urine Ketones Neg (Negative) mg/dL Urine Blood Lg (Negative) Urine Nitrite Neg (Negative) Urine Bilirubin Neg (Negative) Urine Urobilinogen < 2.0 (<2.0) mg/dL Ur Leukocyte Esterase Lg (Negative) Urine WBC (Auto) > 182.0 H (0.0-6.0) /HPF Urine RBC (Auto) > 182.0 (0.0-6.0) /HPF U Epithel Cells (Auto) 24.0 H (0-13.0) /HPF Urine Bacteria (Auto) 1+ (Negative) /HPF Urine Mucus Few /HPF - EKG Data -: EKG Interpreted by Me 06/02/21 17:51 EKG shows a normal sinus rhythm at 89. Intervals are normal including a QRS of 69 and a QT corrected of 162. Patient has no ST elevation to suggest STEMI. There is no ST depression suggestive of ischemia. There is diffuse T wave flattening. There is artifact noted in low voltage. There is no appreciable change from prior EKG. - Medical Decision Making Patient presented with altered mental status and found to have a febrile illness. She would qualify for encephalopathy related to a toxic or metabolic process at this time. She does have evidence of urinary tract infection. There is evidence of an acute kidney injury but it is not twice normal her renal function. She would have findings that is concerning for sepsis. There is no evidence of hypotension. She does not have evidence of severe sepsis or septic shock at this time. Broad-spectrum antibiotics have been ordered. Patient did not have respiratory distress or adventitious breath sounds suggestive of pneumonia. There is no appreciable rash that would have suggested cellulitis. Critical Care Time: No Critical care attestation.: If time is entered above; I have spent that time in minutes in the direct care of this critically ill patient, excluding procedure time. ED Disposition Clinical Impression: Encephalopathy, Acute febrile illness Urinary tract infection Qualifiers: Urinary tract infection type: site unspecified Hematuria presence: without hematuria Qualified Code(s): N39.0 - Urinary tract infection, site not specified Disposition: 09 ADMITTED INPATIENT Is pt being admited?: Yes Condition: Stable Referrals: PRIMARY CARE, [Primary Care Provider] - 3-5 Days
[2021-06-02 16:18] LABS: Bacteria,Urine 1+ /HPF (Negative); Bilirubin,Urine NEG (Negative); Blood,Urine LG (Negative); Color,Urine Yellow (Yellow); Mucus,Urine FEW /HPF; Urobilinogen,Urine < 2.0 mg/dL (<2.0)
[2021-06-02 16:19] LABS: RBC,Urine > 182.0 /HPF (0.0-6.0); WBC,Urine > 182.0 /HPF (0.0-6.0)
[2021-06-02] MEDS ORDERED: SODIUM CHLORIDE 0.9% 1000 ML IV SOLN IV ONE (16:35)
[2021-06-02] MEDS ORDERED: ACETAMINOPHEN 650 MG RECT SUPP PR ONE (16:36)
--- NOTE | 2021-06-02 16:59 | XRay Report ---
XR chest 1V ap INDICATION / CLINICAL INFORMATION: fever. COMPARISON: 05/27/2021 FINDINGS: SUPPORT DEVICES: None. HEART /PULMONARY VASCULATURE: No significant abnormality. LUNGS / PLEURA: No significant pulmonary or pleural abnormality. No pneumothorax. ADDITIONAL FINDINGS: No significant additional findings. IMPRESSION: 1. No acute findings. Signer Name: Dm Pappas MD Signed: 06/02/2021 4:55 PM Workstation Name: [id number]
[2021-06-02 17:02] LABS: Basophils % (Auto) 0.8 % (0.0-1.8); Eosinophils # (Auto) 0.1 K/mm3 (0.0-0.4); Hematocrit 32.3 % (30.3-42.9); Hemoglobin 10.7 gm/dl (10.1-14.3); Lymphocytes # (Auto) 2.4 K/mm3 (1.2-5.4); Lymphocytes % (Auto) 39.9 % (13.4-35.0); Mean Corpuscular HGB Conc 33 % (30-34); Mean Corpuscular Volume 102 fl (79-97); Monocytes # (Auto) 0.5 K/mm3 (0.0-0.8); Monocytes % (Auto) 8.7 % (0.0-7.3); Red Blood Count 3.16 M/mm3 (3.65-5.03); Red Cell Distribution Width 13.1 % (13.2-15.2)
[2021-06-02 17:06] LABS: Platelet Count 246 K/mm3 (140-440)
[2021-06-02] MEDS ORDERED: CEFEPIME/NS 2 GM/100 ML 2 GM/100 ML BAG IV ONE (17:24)
[2021-06-02 17:27] LABS: Albumin 3.6 g/dL (3.9-5); Calcium 8.1 mg/dL (8.4-10.2)
[2021-06-02] MEDS ORDERED: ONDANSETRON 4 MG/2 ML INJ IV PRN (22:53)
[2021-06-02] MEDS ORDERED: oxyCODONE /ACETAMINOPHEN 5-325MG TAB PO PRN (22:53)
[2021-06-02] MEDS ORDERED: METOCLOPRAMIDE 10 MG/2 ML INJ IV PRN (22:53)
[2021-06-02] MEDS ORDERED: MORPHINE 4 MG/1 ML INJ IV PRN (22:53)
[2021-06-03] MEDS: SODIUM CHLORIDE 0.9% 1000 ML 1,000 ML IV SCH ×2 (02:21→17:31)
[2021-06-03] MEDS: HEPARIN 5,000 UNIT/1 ML VIAL SUB-Q SCH ×3 (02:22→21:59)
[2021-06-03] MEDS: METOPROLOL TARTRATE 50 MG TAB PO SCH ×3 (02:23→17:32)
[2021-06-03] MEDS: CEFEPIME/NS 1 GM/100 ML 1 GM/100 ML BAG IV SCH ×2 (06:00→17:41)
[2021-06-03 06:04] LABS: Basophils % (Auto) 0.3 % (0.0-1.8); Eosinophils % (Auto) 0.4 % (0.0-4.3); Hematocrit 28.2 % (30.3-42.9); Hemoglobin 9.6 gm/dl (10.1-14.3); Lymphocytes # (Auto) 1.8 K/mm3 (1.2-5.4); Lymphocytes % (Auto) 42.5 % (13.4-35.0); Mean Corpuscular HGB Conc 34 % (30-34); Mean Corpuscular Volume 100 fl (79-97); Monocytes # (Auto) 0.5 K/mm3 (0.0-0.8); Monocytes % (Auto) 11.1 % (0.0-7.3); Platelet Count 241 K/mm3 (140-440); Red Blood Count 2.82 M/mm3 (3.65-5.03); Red Cell Distribution Width 13.1 % (13.2-15.2)
[2021-06-03 06:23] LABS: Albumin 3.2 g/dL (3.9-5); Calcium 7.6 mg/dL (8.4-10.2)
--- NOTE | 2021-06-03 07:09 | History and Physical Report ---
History of Present Illness Date of examination: 06/02/21 Date of admission: 06/02/21 19:56 Chief complaint: Altered mental status for 36 hours History of present illness: 66-year-old female who looks fairly cachectic sent from correction for altered mental status. Patient is normally conversant. But over the last 36 hours patient has become more lethargic and decreased responsiveness. No fever or chills. During my examination patient is alert to some extent and able to say yes or no. Could not elaborate on any history. Patient appears contract ed. No chest pain or fever or chills. Patient is apparently vaccinated. With Covid - Past Medical History --Hypertension: Yes --Diabetes: Yes --Dementia: Yes --Additional medical history: DEBILITY- IN WHEELCHAIR P HAVING 2 BACK SURGERIES; THIN/FRAIL. cannot be obtained for the patient secondary to altered mental status - Surgical History Additional Surgical History: 5 back surgeries and left ankle - Social History Smoking Status: Former Smoker Substance Use Type: Other ( cannot be obtained for the patient secondary to altered mental status) Review of Systems ROS: Stated complaint: SEPSIS Other details as noted in HPI Comment: Unobtainable due to pts medical conditions (Altered mental status) Medications and Allergies Allergies Allergy/AdvReac Type Severity Reaction Status Date / Time Sulfa (Sulfonamide Allergy Unknown Verified 05/27/21 14:40 Antibiotics) Home Medications Medication Instructions Recorded Confirmed Last Taken Type Metoprolol [Lopressor TAB] 50 mg PO BID #60 tablet 03/27/20 06/03/21 06/01/21 Rx Atorvastatin (Nf) [Lipitor (Nf)] 20 mg PO QDAY 05/28/21 06/03/21 06/01/21 History Azo Cranberry 1 tab PO DAILY 05/28/21 06/03/21 06/01/21 History Baclofen 20 mg PO DAILY 05/28/21 06/03/21 06/01/21 History Cholecalciferol Vit D3 1,000 units PO DAILY 05/28/21 06/03/21 06/01/21 History Gabapentin 100 mg PO DAILY 05/28/21 06/03/21 06/01/21 History Multivit-Min/Iron/Folic Acid/K 1 each PO DAILY 05/28/21 06/03/21 06/01/21 History [Adults Multivitamin Tablet] metFORMIN [Glucophage] 500 mg PO QDAY 05/28/21 06/03/21 06/01/21 History Ciprofloxacin HCl [Ciprofloxacin 500 mg PO BID 5 Days #20 tablet 05/29/21 06/03/21 06/01/21 Rx TAB] Active Meds: Active Medications Acetaminophen (Acetaminophen 325 Mg Tab) 650 mg PO Q4H PRN PRN Reason: Pain MILD(1-3)/Fever >100.5/AARON Atorvastatin Calcium (Atorvastatin 20 Mg Tab) 20 mg PO QDAY [facility] Baclofen (Baclofen 10 Mg Tab) 20 mg PO DAILY [facility] Cholecalciferol (Cholecalciferol (Vit D3) 1000 Unit (25 Mcg) Tab) 1,000 unit PO DAILY [facility] Famotidine (Famotidine 20 Mg/2 Ml Inj) 20 mg IV QAM [facility] Heparin Sodium (Porcine) (Heparin 5,000 Unit/1 Ml Vial) 5,000 unit SUB-Q Q12HR [facility] Last Admin: 06/03/21 02:22 Dose: Not Given Documented by: Sodium Chloride (Nacl 0.9% 1000 Ml) 1,000 mls @ 75 mls/hr IV DIRECT [facility] Last Admin: 06/03/21 02:21 Dose: 75 mls/hr Documented by: Cefepime HCl (Cefepime/Ns 1 Gm/100 Ml) 1 gm in 100 mls @ 200 mls/hr IV Q12H [facility]; Protocol Metoclopramide HCl (Metoclopramide 10 Mg/2 Ml Inj) 5 mg IV Q6H PRN PRN Reason: Nausea And Vomiting Metoprolol Tartrate (Metoprolol Tartrate 50 Mg Tab) 50 mg PO BID@0800,1700 [facility] Last Admin: 06/03/21 02:23 Dose: Not Given Documented by: Morphine Sulfate (Morphine 4 Mg/1 Ml Inj) 4 mg IV Q4H PRN PRN Reason: Pain , Severe (7-10) Multivitamins (Multivitamins ,Therapeutic Tab) 1 each PO DAILY [facility] Ondansetron HCl (Ondansetron 4 Mg/2 Ml Inj) 4 mg IV Q8H PRN PRN Reason: Nausea And Vomiting Oxycodone/Acetaminophen (Oxycodone /Acetaminophen 5-325mg Tab) 1 tab PO Q6H PRN PRN Reason: Pain, Moderate (4-6) Sodium Chloride (Sodium Chloride 0.9% 10 Ml Flush Syringe) 10 ml IV BID MATT Sodium Chloride (Sodium Chloride 0.9% 10 Ml Flush Syringe) 10 ml IV PRN PRN PRN Reason: LINE FLUSH Exam - Physical Exam Narrative exam: Patient lying in bed curled up - Constitutional Vitals: Temp Pulse Resp BP Pulse Ox 99.1 F 78 18 124/75 97 06/03/21 05:24 06/03/21 05:24 06/03/21 05:24 06/03/21 05:24 06/03/21 05:24 General appearance: Present: no acute distress, cachectic - EENT Eyes: Present: PERRL ENT: hearing intact, clear oral mucosa - Neck Neck: Present: supple, normal ROM - Respiratory Respiratory effort: normal Respiratory: bilateral: CTA - Cardiovascular Heart rate: 78 Rhythm: regular Heart Sounds: Present: S1 & S2. Absent: rub, click - Extremities Extremities: no ischemia, pulses symmetrical, No edema, abnormal (Bilateral contractures both lower extremities) Peripheral Pulses: within normal limits - Abdominal General gastrointestinal: Present: soft, non-tender, non-distended, normal bowel sounds Female genitourinary: Present: normal - Integumentary Integumentary: Present: clear, warm, dry - Musculoskeletal Musculoskeletal: generalized weakness - Psychiatric Psychiatric: depressed, other (Lethargic, altered sensorium) - Neurologic Neurologic: CNII-XII intact, moves all extremities, other (Contractures in both lower extremities) HEART Score - HEART Score Troponin: Troponin T 0.032 ng/mL (0.00-0.029) H 06/02/21 16:41 Results - Labs CBC & Chem 7: 06/03/21 05:28 06/03/21 05:28 Labs: Laboratory Last Values WBC 4.3 K/mm3 (4.5-11.0) L 06/03/21 05:28 RBC 2.82 M/mm3 (3.65-5.03) L 06/03/21 05:28 Hgb 9.6 gm/dl (10.1-14.3) L 06/03/21 05:28 Hct 28.2 % (30.3-42.9) L 06/03/21 05:28 MCV 100 fl (79-97) H 06/03/21 05:28 MCH 34 pg (28-32) H 06/03/21 05:28 MCHC 34 % (30-34) 06/03/21 05:28 RDW 13.1 % (13.2-15.2) L 06/03/21 05:28 Plt Count 241 K/mm3 (140-440) 06/03/21 05:28 Lymph % (Auto) 42.5 % (13.4-35.0) H 06/03/21 05:28 [place] % (Auto) 11.1 % (0.0-7.3) H 06/03/21 05:28 Eos % (Auto) 0.4 % (0.0-4.3) 06/03/21 05:28 Baso % (Auto) 0.3 % (0.0-1.8) 06/03/21 05:28 Lymph # (Auto) 1.8 K/mm3 (1.2-5.4) 06/03/21 05:28 [place] # (Auto) 0.5 K/mm3 (0.0-0.8) 06/03/21 05:28 Eos # (Auto) 0.0 K/mm3 (0.0-0.4) 06/03/21 05:28 Baso # (Auto) 0.0 K/mm3 (0.0-0.1) 06/03/21 05:28 Seg Neutrophils % 45.7 % (40.0-70.0) 06/03/21 05:28 Seg Neutrophils # 2.0 K/mm3 (1.8-7.7) 06/03/21 05:28 Sodium 134 mmol/L (137-145) L 06/03/21 05:28 Potassium 4.2 mmol/L (3.6-5.0) 06/03/21 05:28 Chloride 104.8 mmol/L (98-107) 06/03/21 05:28 Carbon Dioxide 17 mmol/L (22-30) L 06/03/21 05:28 Anion Gap 16 mmol/L 06/03/21 05:28 BUN 22 mg/dL (7-17) H 06/03/21 05:28 Creatinine 1.6 mg/dL (0.6-1.2) H 06/03/21 05:28 Estimated GFR 39 ml/min 06/03/21 05:28 BUN/Creatinine Ratio 14 % 06/03/21 05:28 Glucose 80 mg/dL (65-100) 06/03/21 05:28 POC Glucose 90 mg/dL (70-105) 06/02/21 15:13 Lactic Acid 1.80 mmol/L (0.7-2.0) 06/02/21 19:44 Calcium 7.6 mg/dL (8.4-10.2) L 06/03/21 05:28 Total Bilirubin 0.30 mg/dL (0.1-1.2) 06/03/21 05:28 AST 37 units/L (5-40) 06/03/21 05:28 ALT 21 units/L (7-56) 06/03/21 05:28 Alkaline Phosphatase 69 units/L (35-129) 06/03/21 05:28 Troponin T 0.032 ng/mL (0.00-0.029) H 06/02/21 16:41 Total Protein 6.6 g/dL (6.3-8.2) 06/03/21 05:28 Albumin 3.2 g/dL (3.9-5) L 06/03/21 05:28 Albumin/Globulin Ratio 0.9 % 06/03/21 05:28 Urine Color Yellow (Yellow) 06/02/21 Unknown Urine Turbidity Cloudy (Clear) 06/02/21 Unknown Urine pH 6.0 (5.0-7.0) 06/02/21 Unknown Ur Specific [place] 1.010 (1.003-1.030) 06/02/21 Unknown Urine Protein 100 mg/dl mg/dL (Negative) 06/02/21 Unknown Urine Glucose (UA) Neg mg/dL (Negative) 06/02/21 Unknown Urine Ketones Neg mg/dL (Negative) 06/02/21 Unknown Urine Blood Lg (Negative) 06/02/21 Unknown Urine Nitrite Neg (Negative) 06/02/21 Unknown Urine Bilirubin Neg (Negative) 06/02/21 Unknown Urine Urobilinogen < 2.0 mg/dL (<2.0) 06/02/21 Unknown Ur Leukocyte Esterase Lg (Negative) 06/02/21 Unknown Urine WBC (Auto) > 182.0 /HPF (0.0-6.0) H 06/02/21 Unknown Urine RBC (Auto) > 182.0 /HPF (0.0-6.0) 06/02/21 Unknown U Epithel Cells (Auto) 24.0 /HPF (0-13.0) H 06/02/21 Unknown Urine Bacteria (Auto) 1+ /HPF (Negative) 06/02/21 Unknown Urine Mucus Few /HPF 06/02/21 Unknown Short CBC 06/02/21 06/03/21 Range/Units 16:41 05:28 WBC 5.9 4.3 L (4.5-11.0) K/mm3 Hgb 10.7 9.6 L (10.1-14.3) gm/dl Hct 32.3 28.2 L (30.3-42.9) % Plt Count 246 241 (140-440) K/mm3 BMP 06/02/21 06/03/21 16:41 05:28 Sodium 132 L D 134 L Potassium 4.6 4.2 Chloride 100.0 104.8 Carbon Dioxide 19 L 17 L BUN 25 H 22 H Creatinine 1.9 H 1.6 H Glucose 108 H 80 Calcium 8.1 L 7.6 L Cardiac Enzymes 06/02/21 Range/Units 16:41 Troponin T 0.032 H (0.00-0.029) ng/mL Liver Function 06/02/21 06/03/21 Range/Units 16:41 05:28 Total Bilirubin 0.20 0.30 (0.1-1.2) mg/dL AST 40 37 (5-40) units/L ALT 23 21 (7-56) units/L Alkaline Phosphatase 83 69 (35-129) units/L Albumin 3.6 L 3.2 L (3.9-5) g/dL Urine 06/02/21 Range/Units Unknown Urine Color Yellow (Yellow) Urine pH 6.0 (5.0-7.0) Ur Specific [place] 1.010 (1.003-1.030) Urine Protein 100 mg/dl (Negative) mg/dL Urine Glucose (UA) Neg (Negative) mg/dL Short CBC 06/02/21 06/03/21 Range/Units 16:41 05:28 WBC 5.9 4.3 L (4.5-11.0) K/mm3 Hgb 10.7 9.6 L (10.1-14.3) gm/dl Hct 32.3 28.2 L (30.3-42.9) % Plt Count 246 241 (140-440) K/mm3 BMP 06/02/21 06/03/21 16:41 05:28 Sodium 132 L D 134 L Potassium 4.6 4.2 Chloride 100.0 104.8 Carbon Dioxide 19 L 17 L BUN 25 H 22 H Creatinine 1.9 H 1.6 H Glucose 108 H 80 Calcium 8.1 L 7.6 L Cardiac Enzymes 06/02/21 Range/Units 16:41 Troponin T 0.032 H (0.00-0.029) ng/mL Liver Function 06/02/21 06/03/21 Range/Units 16:41 05:28 Total Bilirubin 0.20 0.30 (0.1-1.2) mg/dL AST 40 37 (5-40) units/L ALT 23 21 (7-56) units/L Alkaline Phosphatase 83 69 (35-129) units/L Albumin 3.6 L 3.2 L (3.9-5) g/dL Urine 06/02/21 Range/Units Unknown Urine Color Yellow (Yellow) Urine pH 6.0 (5.0-7.0) Ur Specific [place] 1.010 (1.003-1.030) Urine Protein 100 mg/dl (Negative) mg/dL Urine Glucose (UA) Neg (Negative) mg/dL Microbiology: Microbiology 06/02/21 16:41 Peripheral/Venous Blood Culture - Preliminary Culture in Progress 06/02/21 16:54 Peripheral/Venous Blood Culture - Preliminary Culture in Progress - Imaging and Cardiology Chest x-ray: report reviewed (No acute findings) Shah/IV: Voiding Method External Female Catheter Assessment and Plan Advance Directives: Yes (Full code) VTE prophylaxis?: Chemical Plan of care discussed with patient/family: Yes - Patient Problems (1) Acute encephalopathy Current Visit: Yes Status: Acute Plan to address problem: Possibly secondary to urinary tract infection IV ceftriaxone initiated pending cultures (2) UTI (urinary tract infection) Current Visit: Yes Status: Acute Qualifiers: Urinary tract infection type: acute cystitis Hematuria presence: without hematuria Qualified Code(s): N30.00 - Acute cystitis without hematuria Plan to address problem: Patient initiated on IV ceftriaxone and IV fluids (3) Hyponatremia Current Visit: Yes Status: Acute Plan to address problem: Continue IV normal saline (4) Hypertension Current Visit: Yes Status: Chronic Qualifiers: Hypertension type: primary hypertension Qualified Code(s): I10 - Essential (primary) hypertension Plan to address problem: Continue metoprolol and adjust medications as necessary (5) Hyperlipidemia Current Visit: Yes Status: Chronic Qualifiers: Hyperlipidemia type: mixed hyperlipidemia Qualified Code(s): E78.2 - Mixed hyperlipidemia Plan to address problem: On statins (6) Vitamin D deficiency Current Visit: Yes Status: Chronic Plan to address problem: Continue vitamin D (7) KILLIAN (acute kidney injury) Current Visit: No Status: Acute Plan to address problem: Secondary to vasomotor nephropathy and dehydration (8) DVT prophylaxis Current Visit: No Status: Acute Plan to address problem: On anticoagulation GI prophylaxis
--- NOTE | 2021-06-03 08:36 | Progress Note ---
Assessment and Plan Assessment and plan: Sepsis. Patient meets criteria given the altered mentation, fever and diagnosis of UTI UTI. Toxic metabolic encephalopathy. Hyponatremia. Hypertension Hyperlipidemia Vitamin D deficiency. Acute kidney injury likely secondary to vasomotor nephropathy +/-ATN/sepsis. 06/03/2021. We will follow-up blood and urine cultures. Continue IV antibiotics. Patient appears to be back to baseline with mental status. Patient is A & O x3. Follow-up CBC and BMP in a.m. Check renal ultrasound. History Interval history: No new issues overnight. Hospitalist Physical - Constitutional Vitals: Temp Pulse Resp BP Pulse Ox 99.1 F 78 18 124/75 97 06/03/21 05:24 06/03/21 05:24 06/03/21 05:24 06/03/21 05:24 06/03/21 05:24 General appearance: Present: no acute distress, cachectic - EENT Eyes: Present: PERRL, EOM intact ENT: hearing intact, clear oral mucosa, dentition normal - Neck Neck: Present: supple, normal ROM - Respiratory Respiratory effort: normal Respiratory: bilateral: CTA - Cardiovascular Rhythm: regular Heart Sounds: Present: S1 & S2. Absent: gallop, rub - Extremities Extremities: no ischemia, No edema, Full ROM - Abdominal General gastrointestinal: soft, non-tender, non-distended, normal bowel sounds - Integumentary Integumentary: Present: clear, warm, dry - Neurologic Neurologic: CNII-XII intact, moves all extremities HEART Score - HEART Score Troponin: Troponin T 0.032 ng/mL (0.00-0.029) H 06/02/21 16:41 Results - Labs CBC & Chem 7: 06/03/21 05:28 06/03/21 05:28 Labs: Laboratory Last Values WBC 4.3 K/mm3 (4.5-11.0) L 06/03/21 05:28 RBC 2.82 M/mm3 (3.65-5.03) L 06/03/21 05:28 Hgb 9.6 gm/dl (10.1-14.3) L 06/03/21 05:28 Hct 28.2 % (30.3-42.9) L 06/03/21 05:28 MCV 100 fl (79-97) H 06/03/21 05:28 MCH 34 pg (28-32) H 06/03/21 05:28 MCHC 34 % (30-34) 06/03/21 05:28 RDW 13.1 % (13.2-15.2) L 06/03/21 05:28 Plt Count 241 K/mm3 (140-440) 06/03/21 05:28 Lymph % (Auto) 42.5 % (13.4-35.0) H 06/03/21 05:28 [place] % (Auto) 11.1 % (0.0-7.3) H 06/03/21 05:28 Eos % (Auto) 0.4 % (0.0-4.3) 06/03/21 05:28 Baso % (Auto) 0.3 % (0.0-1.8) 06/03/21 05:28 Lymph # (Auto) 1.8 K/mm3 (1.2-5.4) 06/03/21 05:28 [place] # (Auto) 0.5 K/mm3 (0.0-0.8) 06/03/21 05:28 Eos # (Auto) 0.0 K/mm3 (0.0-0.4) 06/03/21 05:28 Baso # (Auto) 0.0 K/mm3 (0.0-0.1) 06/03/21 05:28 Seg Neutrophils % 45.7 % (40.0-70.0) 06/03/21 05:28 Seg Neutrophils # 2.0 K/mm3 (1.8-7.7) 06/03/21 05:28 Sodium 134 mmol/L (137-145) L 06/03/21 05:28 Potassium 4.2 mmol/L (3.6-5.0) 06/03/21 05:28 Chloride 104.8 mmol/L (98-107) 06/03/21 05:28 Carbon Dioxide 17 mmol/L (22-30) L 06/03/21 05:28 Anion Gap 16 mmol/L 06/03/21 05:28 BUN 22 mg/dL (7-17) H 06/03/21 05:28 Creatinine 1.6 mg/dL (0.6-1.2) H 06/03/21 05:28 Estimated GFR 39 ml/min 06/03/21 05:28 BUN/Creatinine Ratio 14 % 06/03/21 05:28 Glucose 80 mg/dL (65-100) 06/03/21 05:28 POC Glucose 90 mg/dL (70-105) 06/02/21 15:13 Lactic Acid 1.80 mmol/L (0.7-2.0) 06/02/21 19:44 Calcium 7.6 mg/dL (8.4-10.2) L 06/03/21 05:28 Total Bilirubin 0.30 mg/dL (0.1-1.2) 06/03/21 05:28 AST 37 units/L (5-40) 06/03/21 05:28 ALT 21 units/L (7-56) 06/03/21 05:28 Alkaline Phosphatase 69 units/L (35-129) 06/03/21 05:28 Troponin T 0.032 ng/mL (0.00-0.029) H 06/02/21 16:41 Total Protein 6.6 g/dL (6.3-8.2) 06/03/21 05:28 Albumin 3.2 g/dL (3.9-5) L 06/03/21 05:28 Albumin/Globulin Ratio 0.9 % 06/03/21 05:28 Urine Color Yellow (Yellow) 06/02/21 Unknown Urine Turbidity Cloudy (Clear) 06/02/21 Unknown Urine pH 6.0 (5.0-7.0) 06/02/21 Unknown Ur Specific [place] 1.010 (1.003-1.030) 06/02/21 Unknown Urine Protein 100 mg/dl mg/dL (Negative) 06/02/21 Unknown Urine Glucose (UA) Neg mg/dL (Negative) 06/02/21 Unknown Urine Ketones Neg mg/dL (Negative) 06/02/21 Unknown Urine Blood Lg (Negative) 06/02/21 Unknown Urine Nitrite Neg (Negative) 06/02/21 Unknown Urine Bilirubin Neg (Negative) 06/02/21 Unknown Urine Urobilinogen < 2.0 mg/dL (<2.0) 06/02/21 Unknown Ur Leukocyte Esterase Lg (Negative) 06/02/21 Unknown Urine WBC (Auto) > 182.0 /HPF (0.0-6.0) H 06/02/21 Unknown Urine RBC (Auto) > 182.0 /HPF (0.0-6.0) 06/02/21 Unknown U Epithel Cells (Auto) 24.0 /HPF (0-13.0) H 06/02/21 Unknown Urine Bacteria (Auto) 1+ /HPF (Negative) 06/02/21 Unknown Urine Mucus Few /HPF 06/02/21 Unknown Microbiology: Microbiology 06/02/21 16:41 Peripheral/Venous Blood Culture - Preliminary Culture in Progress 06/02/21 16:54 Peripheral/Venous Blood Culture - Preliminary Culture in Progress Shah/IV: Voiding Method External Female Catheter Active Medications - Current Medications Current Medications: Generic Name Dose Route Start Last Admin Trade Name Freq PRN Reason Stop Dose Admin Acetaminophen 650 mg 06/02/21 22:53 Acetaminophen 325 Mg Tab PO Q4H PRN Pain MILD(1-3)/Fever >100.5/AARON Atorvastatin Calcium 20 mg 06/03/21 10:00 Atorvastatin 20 Mg Tab PO QDAY [facility] Baclofen 20 mg 06/03/21 10:00 Baclofen 10 Mg Tab PO DAILY [facility] Cholecalciferol 1,000 unit 06/03/21 10:00 Cholecalciferol (Vit D3) 1000 Unit (25 Mcg) Tab PO DAILY [facility] Famotidine 20 mg 06/03/21 10:00 Famotidine 20 Mg/2 Ml Inj IV QAM [facility] Heparin Sodium (Porcine) 5,000 unit 06/02/21 23:00 06/03/21 02:22 Heparin 5,000 Unit/1 Ml Vial SUB-Q Not Given Q12HR [facility] Sodium Chloride 1,000 mls @ 75 mls/hr 06/02/21 23:00 06/03/21 02:21 Nacl 0.9% 1000 Ml IV 75 mls/hr DIRECT [facility] Administration Cefepime HCl 1 gm in 100 mls @ 200 mls/hr 06/03/21 06:00 Cefepime/Ns 1 Gm/100 Ml IV Q12H [facility] Protocol Metoclopramide HCl 5 mg 06/02/21 22:53 Metoclopramide 10 Mg/2 Ml Inj IV Q6H PRN Nausea And Vomiting Metoprolol Tartrate 50 mg 06/02/21 23:00 06/03/21 02:23 Metoprolol Tartrate 50 Mg Tab PO Not Given BID@0800,1700 [facility] Morphine Sulfate 4 mg 06/02/21 22:53 Morphine 4 Mg/1 Ml Inj IV Q4H PRN Pain , Severe (7-10) Multivitamins 1 each 06/03/21 10:00 Multivitamins ,Therapeutic Tab PO DAILY [facility] Ondansetron HCl 4 mg 06/02/21 22:53 Ondansetron 4 Mg/2 Ml Inj IV Q8H PRN Nausea And Vomiting Oxycodone/Acetaminophen 1 tab 06/02/21 22:53 Oxycodone /Acetaminophen 5-325mg Tab PO Q6H PRN Pain, Moderate (4-6) Sodium Chloride 10 ml 06/03/21 10:00 Sodium Chloride 0.9% 10 Ml Flush Syringe IV BID [facility] Sodium Chloride 10 ml 06/02/21 22:53 Sodium Chloride 0.9% 10 Ml Flush Syringe IV PRN PRN LINE FLUSH
[2021-06-03] MEDS: MULTIVITAMINS ,THERAPEUTIC TAB PO SCH (09:25)
[2021-06-03] MEDS: CHOLECALCIFEROL (VIT D3) 1000 UNIT (25 mcg) TAB PO SCH (09:25)
[2021-06-03] MEDS: BACLOFEN 10 MG TAB PO SCH (09:25)
[2021-06-03] MEDS: FAMOTIDINE 20 MG/2 ML INJ IV SCH (09:25)
[2021-06-03 13:53] LABS: Basophils % (Auto) 0.5 % (0.0-1.8); Eosinophils % (Auto) 0.9 % (0.0-4.3); Hematocrit 27.6 % (30.3-42.9); Hemoglobin 9.1 gm/dl (10.1-14.3); Lymphocytes # (Auto) 1.8 K/mm3 (1.2-5.4); Lymphocytes % (Auto) 42.2 % (13.4-35.0); Mean Corpuscular HGB Conc 33 % (30-34); Mean Corpuscular Volume 101 fl (79-97); Monocytes # (Auto) 0.5 K/mm3 (0.0-0.8); Monocytes % (Auto) 10.8 % (0.0-7.3); Platelet Count 244 K/mm3 (140-440); Red Blood Count 2.74 M/mm3 (3.65-5.03); Red Cell Distribution Width 13.1 % (13.2-15.2)
[2021-06-03 14:03] LABS: Calcium 7.6 mg/dL (8.4-10.2)
--- NOTE | 2021-06-03 17:46 | Ultrasound Report ---
ULTRASOUND RENAL INDICATION / CLINICAL INFORMATION: KILLIAN, UTI. COMPARISON: None available. FINDINGS: RIGHT KIDNEY: Length = 11.0 cm. - Echogenicity: Normal. - Cortical Thickness: Normal. - Hydronephrosis: Minimal calyceal prominence without definite hydronephrosis.. - Cyst / Mass: 1.2 cm cyst inferior pole right kidney.. - Stones: None seen. LEFT KIDNEY: Length = 9.0 cm. - Echogenicity: Normal. - Cortical Thickness: Normal. - Hydronephrosis: None. - Cyst / Mass: 4.9 cm simple cyst upper pole left kidney. No solid mass. - Stones: None URINARY BLADDER: No significant abnormality. FREE FLUID: None. ADDITIONAL FINDINGS: None. IMPRESSION: 1. Simple cyst of the bilateral kidneys. Otherwise, unremarkable renal ultrasound. Minimal calyceal p rominence bilaterally without definite evidence of hydronephrosis. Signer Name: Tony Bergeron MD Signed: 06/03/2021 5:42 PM Workstation Name: [id number]
[2021-06-03 17:55] LABS: Bacteria,Urine 1+ /HPF (Negative); Bilirubin,Urine NEG (Negative); Blood,Urine LG (Negative); Color,Urine Yellow (Yellow); Mucus,Urine FEW /HPF; Urobilinogen,Urine < 2.0 mg/dL (<2.0)
[2021-06-03] MEDS: ACETAMINOPHEN 325 MG TAB PO PRN (21:59)
[2021-06-03] MEDS ORDERED: CEFEPIME/NS 1 GM/100 ML 1 GM/100 ML BAG IV SCH (23:45)
[2021-06-04] MEDS: CEFEPIME/NS 1 GM/100 ML 1 GM/100 ML BAG IV SCH ×2 (06:09→19:03)
[2021-06-04] MEDS: SODIUM CHLORIDE 0.9% 1000 ML 1,000 ML IV SCH (06:11)
[2021-06-04] MEDS: METOPROLOL TARTRATE 50 MG TAB PO SCH ×2 (08:02→19:03)
--- NOTE | 2021-06-04 08:22 | Progress Note ---
Assessment and Plan Assessment and plan: Sepsis. Patient meets criteria given the altered mentation, fever and diagnosis of UTI UTI. Toxic metabolic encephalopathy. Hyponatremia. Hypertension Hyperlipidemia Vitamin D deficiency. Acute kidney injury likely secondary to vasomotor nephropathy +/-ATN/sepsis. 06/03/2021. We will follow-up blood and urine cultures. Continue IV antibiotics. Patient appears to be back to baseline with mental status. Patient is A & O x3. Follow-up CBC and BMP in a.m. Check renal ultrasound. 06/04/2021. Renal ultrasound reveals simple cyst of the bilateral kidneys with minimal calyceal prominence bilaterally without definite evidence of hydronephrosis. Otherwise unremarkable renal ultrasound. Blood culture with no growth x24 hours. Continue to follow blood and urine culture. Continue IV fl uid hydration and monitor creatinine. Patient appeared to have baseline creatinine of 1.1 in March 2020. Patient has seen Dr. Lyons on her previous hospitalization. We will reconsult if no continued improvement in creatinine. History Interval history: No new issues overnight. Hospitalist Physical - Constitutional Vitals: Temp Pulse Resp BP Pulse Ox 99.0 F 75 18 144/73 99 06/04/21 04:33 06/04/21 04:33 06/04/21 04:33 06/04/21 04:33 06/04/21 04:33 General appearance: Present: no acute distress, cachectic - EENT Eyes: Present: PERRL, EOM intact ENT: hearing intact, clear oral mucosa, dentition normal - Neck Neck: Present: supple, normal ROM - Respiratory Respiratory effort: normal Respiratory: bilateral: CTA - Cardiovascular Rhythm: regular Heart Sounds: Present: S1 & S2. Absent: gallop, rub - Extremities Extremities: no ischemia, No edema, Full ROM - Abdominal General gastrointestinal: soft, non-tender, non-distended, normal bowel sounds - Integumentary Integumentary: Present: clear, warm, dry - Neurologic Neurologic: CNII-XII intact, moves all extremities HEART Score - HEART Score Troponin: Troponin T 0.032 ng/mL (0.00-0.029) H 06/02/21 16:41 Results - Labs CBC & Chem 7: 06/03/21 13:17 06/03/21 13:17 Labs: Laboratory Last Values WBC 4.2 K/mm3 (4.5-11.0) L 06/03/21 13:17 RBC 2.74 M/mm3 (3.65-5.03) L 06/03/21 13:17 Hgb 9.1 gm/dl (10.1-14.3) L 06/03/21 13:17 Hct 27.6 % (30.3-42.9) L 06/03/21 13:17 MCV 101 fl (79-97) H 06/03/21 13:17 MCH 33 pg (28-32) H 06/03/21 13:17 MCHC 33 % (30-34) 06/03/21 13:17 RDW 13.1 % (13.2-15.2) L 06/03/21 13:17 Plt Count 244 K/mm3 (140-440) 06/03/21 13:17 Lymph % (Auto) 42.2 % (13.4-35.0) H 06/03/21 13:17 [place] % (Auto) 10.8 % (0.0-7.3) H 06/03/21 13:17 Eos % (Auto) 0.9 % (0.0-4.3) 06/03/21 13:17 Baso % (Auto) 0.5 % (0.0-1.8) 06/03/21 13:17 Lymph # (Auto) 1.8 K/mm3 (1.2-5.4) 06/03/21 13:17 [place] # (Auto) 0.5 K/mm3 (0.0-0.8) 06/03/21 13:17 Eos # (Auto) 0.0 K/mm3 (0.0-0.4) 06/03/21 13:17 Baso # (Auto) 0.0 K/mm3 (0.0-0.1) 06/03/21 13:17 Seg Neutrophils % 45.6 % (40.0-70.0) 06/03/21 13:17 Seg Neutrophils # 1.9 K/mm3 (1.8-7.7) 06/03/21 13:17 Sodium 132 mmol/L (137-145) L 06/03/21 13:17 Potassium 3.9 mmol/L (3.6-5.0) 06/03/21 13:17 Chloride 103.7 mmol/L (98-107) 06/03/21 13:17 Carbon Dioxide 16 mmol/L (22-30) L 06/03/21 13:17 Anion Gap 16 mmol/L 06/03/21 13:17 BUN 22 mg/dL (7-17) H 06/03/21 13:17 Creatinine 1.6 mg/dL (0.6-1.2) H 06/03/21 13:17 Estimated GFR 39 ml/min 06/03/21 13:17 BUN/Creatinine Ratio 14 % 06/03/21 13:17 Glucose 108 mg/dL (65-100) H 06/03/21 13:17 POC Glucose 90 mg/dL (70-105) 06/02/21 15:13 Lactic Acid 1.80 mmol/L (0.7-2.0) 06/02/21 19:44 Calcium 7.6 mg/dL (8.4-10.2) L 06/03/21 13:17 Total Bilirubin 0.30 mg/dL (0.1-1.2) 06/03/21 05:28 AST 37 units/L (5-40) 06/03/21 05:28 ALT 21 units/L (7-56) 06/03/21 05:28 Alkaline Phosphatase 69 units/L (35-129) 06/03/21 05:28 Troponin T 0.032 ng/mL (0.00-0.029) H 06/02/21 16:41 Total Protein 6.6 g/dL (6.3-8.2) 06/03/21 05:28 Albumin 3.2 g/dL (3.9-5) L 06/03/21 05:28 Albumin/Globulin Ratio 0.9 % 06/03/21 05:28 Urine Color Yellow (Yellow) 06/02/21 Unknown Urine Turbidity Cloudy (Clear) 06/02/21 Unknown Urine pH 6.0 (5.0-7.0) 06/02/21 Unknown Ur Specific [place] 1.010 (1.003-1.030) 06/02/21 Unknown Urine Protein 100 mg/dl mg/dL (Negative) 06/02/21 Unknown Urine Glucose (UA) Neg mg/dL (Negative) 06/02/21 Unknown Urine Ketones Neg mg/dL (Negative) 06/02/21 Unknown Urine Blood Lg (Negative) 06/02/21 Unknown Urine Nitrite Neg (Negative) 06/02/21 Unknown Urine Bilirubin Neg (Negative) 06/02/21 Unknown Urine Urobilinogen < 2.0 mg/dL (<2.0) 06/02/21 Unknown Ur Leukocyte Esterase Lg (Negative) 06/02/21 Unknown Urine WBC (Auto) > 182.0 /HPF (0.0-6.0) H 06/02/21 Unknown Urine RBC (Auto) > 182.0 /HPF (0.0-6.0) 06/02/21 Unknown U Epithel Cells (Auto) 24.0 /HPF (0-13.0) H 06/02/21 Unknown Urine Bacteria (Auto) 1+ /HPF (Negative) 06/02/21 Unknown Urine Mucus Few /HPF 06/02/21 Unknown Microbiology: Microbiology 06/02/21 16:41 Peripheral/Venous Blood Culture - Preliminary NO GROWTH AFTER 24 HOURS 06/02/21 16:54 Peripheral/Venous Blood Culture - Preliminary NO GROWTH AFTER 24 HOURS Shah/IV: Voiding Method Incontinent Active Medications - Current Medications Current Medications: Generic Name Dose Route Start Last Admin Trade Name Freq PRN Reason Stop Dose Admin Acetaminophen 650 mg 06/02/21 22:53 06/03/21 21:59 Acetaminophen 325 Mg Tab PO 650 mg Q4H PRN Administration Pain MILD(1-3)/Fever >100.5/AARON Atorvastatin Calcium 20 mg 06/03/21 10:00 06/03/21 09:25 Atorvastatin 20 Mg Tab PO 20 mg QDAY MATT Administration Baclofen 20 mg 06/03/21 10:00 06/03/21 09:25 Baclofen 10 Mg Tab PO 20 mg DAILY MATT Administration Cholecalciferol 1,000 unit 06/03/21 10:00 06/03/21 09:25 Cholecalciferol (Vit D3) 1000 Unit (25 Mcg) Tab PO 1,000 unit DAILY MATT Administration Famotidine 20 mg 06/03/21 10:00 06/03/21 09:25 Famotidine 20 Mg/2 Ml Inj IV 20 mg QAM MATT Administration Heparin Sodium (Porcine) 5,000 unit 06/02/21 23:00 06/03/21 21:59 Heparin 5,000 Unit/1 Ml Vial SUB-Q 5,000 unit Q12HR MATT Administration Sodium Chloride 1,000 mls @ 75 mls/hr 06/02/21 23:00 06/04/21 06:11 Nacl 0.9% 1000 Ml IV 75 mls/hr DIRECT MATT Administration Cefepime HCl 1 gm in 100 mls @ 200 mls/hr 06/03/21 06:00 06/04/21 06:09 Cefepime/Ns 1 Gm/100 Ml IV 200 mls/hr Q12H MATT Administration Protocol Metoclopramide HCl 5 mg 06/02/21 22:53 Metoclopramide 10 Mg/2 Ml Inj IV Q6H PRN Nausea And Vomiting Metoprolol Tartrate 50 mg 06/02/21 23:00 06/03/21 17:32 Metoprolol Tartrate 50 Mg Tab PO 50 mg BID@0800,1700 MATT Administration Morphine Sulfate 4 mg 06/02/21 22:53 Morphine 4 Mg/1 Ml Inj IV Q4H PRN Pain , Severe (7-10) Multivitamins 1 each 06/03/21 10:00 06/03/21 09:25 Multivitamins ,Therapeutic Tab PO 1 each DAILY MATT Administration Ondansetron HCl 4 mg 06/02/21 22:53 Ondansetron 4 Mg/2 Ml Inj IV Q8H PRN Nausea And Vomiting Oxycodone/Acetaminophen 1 tab 06/02/21 22:53 Oxycodone /Acetaminophen 5-325mg Tab PO Q6H PRN Pain, Moderate (4-6) Sodium Chloride 10 ml 06/03/21 10:00 06/03/21 21:59 Sodium Chloride 0.9% 10 Ml Flush Syringe IV 10 ml BID MATT Administration Sodium Chloride 10 ml 06/02/21 22:53 Sodium Chloride 0.9% 10 Ml Flush Syringe IV PRN PRN LINE FLUSH
[2021-06-04 09:00] LABS: Calcium 8.1 mg/dL (8.4-10.2)
[2021-06-04] MEDS: MULTIVITAMINS ,THERAPEUTIC TAB PO SCH (10:58)
[2021-06-04] MEDS: BACLOFEN 10 MG TAB PO SCH (11:00)
[2021-06-04] MEDS: HEPARIN 5,000 UNIT/1 ML VIAL SUB-Q SCH ×2 (11:01→23:15)
[2021-06-04] MEDS: CHOLECALCIFEROL (VIT D3) 1000 UNIT (25 mcg) TAB PO SCH (11:57)
[2021-06-04] MEDS: FAMOTIDINE 20 MG/2 ML INJ IV SCH (18:58)
[2021-06-04] MEDS: ACETAMINOPHEN 325 MG TAB PO PRN (23:16)
[2021-06-04] MEDS ORDERED: hydrALAZINE 20 MG/1 ML INJ IV PRN (23:40)
[2021-06-04] MEDS ORDERED: IBUPROFEN 600 MG TAB PO PRN (23:42)
[2021-06-05 06:38] LABS: Basophils % (Auto) 0.5 % (0.0-1.8); Eosinophils % (Auto) 0.5 % (0.0-4.3); Hematocrit 27.8 % (30.3-42.9); Hemoglobin 9.2 gm/dl (10.1-14.3); Lymphocytes # (Auto) 1.4 K/mm3 (1.2-5.4); Lymphocytes % (Auto) 34.6 % (13.4-35.0); Mean Corpuscular HGB Conc 33 % (30-34); Mean Corpuscular Volume 100 fl (79-97); Monocytes # (Auto) 0.4 K/mm3 (0.0-0.8); Monocytes % (Auto) 8.9 % (0.0-7.3); Platelet Count 310 K/mm3 (140-440); Red Blood Count 2.78 M/mm3 (3.65-5.03); Red Cell Distribution Width 13.2 % (13.2-15.2)
[2021-06-05] MEDS: SODIUM CHLORIDE 0.9% 1000 ML 1,000 ML IV SCH ×2 (06:51→22:43)
[2021-06-05] MEDS: CEFEPIME/NS 1 GM/100 ML 1 GM/100 ML BAG IV SCH ×2 (06:51→18:20)
[2021-06-05 06:57] LABS: Calcium 8.1 mg/dL (8.4-10.2)
--- NOTE | 2021-06-05 07:40 | Progress Note ---
Assessment and Plan Assessment and plan: History of present illness: 66-year-old female who looks fairly cachectic sent from residential for altered mental status. Patient is normally conversant. But over the last 36 hours patient has become more lethargic and decreased responsiveness. No fever or chills. During my examination patient is alert to some extent and able to say yes or no. Could not elaborate on any history. Patient appears contracted. No chest pain or fever or chills. Patient is apparently vaccinated. With Covid Hospital course to date: 06/03/2021: We will follow-up blood and urine cultures. Continue IV antibiotics. Patient appears to be back to baseline with mental status. Patient is A & O x3. Follow-up CBC and BMP in a.m. Check renal ultrasound. 06/04/2021: Renal ultrasound reveals simple cyst of the bilateral kidneys with minimal calyceal prominence bilaterally without definite evidence of hydronephrosis. Otherwise unremarkable renal ultrasound. Blood culture with no growth x24 hours. Continue to follow blood and urine culture. Continue IV fluid hydration and monitor creatinine. Patient appeared to have baseline creatinine of 1.1 in March 2020. Patient has seen Dr. Lyons on her previous hospitalization. We will reconsult if no continued improvement in creatinine. 06/05/2021: Mental status significantly improved. Will need PT re-eval for home health care as home hospice was initially discussed over weekend. Patient does not appear to be hospice appropriate. D/w daughter this AM who agreed with home health plan. Also d/w CM regarding need for home health set up. Plan for d/c tomorrow. Assessment and plan #Sepsis. Patient meets criteria given the altered mentation, fever and diagnosi s of UTI - cefepime IV #UTI - management as above - UCx NGTD - BCx NGTD #Toxic metabolic encephalopathy (resolved) - likely secondary to UTI #Hyponatremia #Hypertension - metoprolol 50 mg po bid - amlodipine 5 mg po daily #Hyperlipidemia #Vitamin D deficiency. #Acute kidney injury likely secondary to vasomotor nephropathy +/- ATN/sepsis. - improved, Cr downtrending #Advance care planning Disease education conducted, care plan discussed, diagnoses discussed, prognosis discussed, patient is full code, patient acknowledges understanding and agree with care plan, +30 minutes. History Interval history: No acute complaints. Resting comfortably. AOx4. This is apparently a change from yesterday when patient was encephalopathic. Discussed plan for home health set up with daughter who was at bedside with patient. There was confusion regarding home hospice versus home health care. Patient and patient daughter were educated on the difference and stated that they preference to home health care. Discussed with case management on rounds today the need to set up home health care. Hospitalist Physical - Physical exam Narrative exam: Physical Exam: VITAL SIGNS: Reviewed. GENERAL: The patient appears normally developed, Vital signs as documented. HEAD: No signs of head trauma. EYES: Pupils are equal. Extraocular motions intact. EARS: Hearing grossly intact. MOUTH: Oropharynx is normal. NECK: No adenopathy, no JVD. CHEST: Chest with clear breath sounds bilaterally. No wheezes, rales, or rhonchi. CARDIAC: Regular rate and rhythm. S1 and S2, without murmurs, gallops, or rubs. VASCULAR: No Edema. Peripheral pulses normal and equal in all extremities. ABDOMEN: Soft, non tender and non distended. No rebound or guarding, and no masses palpated. Bowel Sounds normal. MUSCULOSKELETAL: Good range of motion of all major joints. Extremities without clubbing, cyanosis or edema. NEUROLOGIC EXAM: Alert and oriented x 4. no focal sensory or strength deficits. PSYCHIATRIC: Mood normal. SKIN: detail exam as documented in skin assessment - Constitutional Vitals: Temp Pulse Resp BP Pulse Ox 98.3 F 81 20 185/85 97 06/05/21 04:39 06/05/21 06:51 06/05/21 04:39 06/05/21 06:51 06/05/21 04:40 General appearance: Present: no acute distress, cachectic HEART Score - HEART Score Troponin: Troponin T 0.032 ng/mL (0.00-0.029) H 06/02/21 16:41 Results - Labs CBC & Chem 7: 06/05/21 05:39 06/05/21 05:39 Labs: Laboratory Last Values WBC 4.1 K/mm3 (4.5-11.0) L 06/05/21 05:39 RBC 2.78 M/mm3 (3.65-5.03) L 06/05/21 05:39 Hgb 9.2 gm/dl (10.1-14.3) L 06/05/21 05:39 Hct 27.8 % (30.3-42.9) L 06/05/21 05:39 MCV 100 fl (79-97) H 06/05/21 05:39 MCH 33 pg (28-32) H 06/05/21 05:39 MCHC 33 % (30-34) 06/05/21 05:39 RDW 13.2 % (13.2-15.2) 06/05/21 05:39 Plt Count 310 K/mm3 (140-440) 06/05/21 05:39 Lymph % (Auto) 34.6 % (13.4-35.0) 06/05/21 05:39 [place] % (Auto) 8.9 % (0.0-7.3) H 06/05/21 05:39 Eos % (Auto) 0.5 % (0.0-4.3) 06/05/21 05:39 Baso % (Auto) 0.5 % (0.0-1.8) 06/05/21 05:39 Lymph # (Auto) 1.4 K/mm3 (1.2-5.4) 06/05/21 05:39 [place] # (Auto) 0.4 K/mm3 (0.0-0.8) 06/05/21 05:39 Eos # (Auto) 0.0 K/mm3 (0.0-0.4) 06/05/21 05:39 Baso # (Auto) 0.0 K/mm3 (0.0-0.1) 06/05/21 05:39 Seg Neutrophils % 55.5 % (40.0-70.0) 06/05/21 05:39 Seg Neutrophils # 2.3 K/mm3 (1.8-7.7) 06/05/21 05:39 Sodium 139 mmol/L (137-145) 06/05/21 05:39 Potassium 3.7 mmol/L (3.6-5.0) 06/05/21 05:39 Chloride 109.0 mmol/L (98-107) H 06/05/21 05:39 Carbon Dioxide 16 mmol/L (22-30) L 06/05/21 05:39 Anion Gap 18 mmol/L 06/05/21 05:39 BUN 19 mg/dL (7-17) H 06/05/21 05:39 Creatinine 1.4 mg/dL (0.6-1.2) H 06/05/21 05:39 Estimated GFR 46 ml/min 06/05/21 05:39 BUN/Creatinine Ratio 14 % 06/05/21 05:39 Glucose 75 mg/dL (65-100) 06/05/21 05:39 POC Glucose 90 mg/dL (70-105) 06/02/21 15:13 Lactic Acid 1.80 mmol/L (0.7-2.0) 06/02/21 19:44 Calcium 8.1 mg/dL (8.4-10.2) L 06/05/21 05:39 Total Bilirubin 0.30 mg/dL (0.1-1.2) 06/03/21 05:28 AST 37 units/L (5-40) 06/03/21 05:28 ALT 21 units/L (7-56) 06/03/21 05:28 Alkaline Phosphatase 69 units/L (35-129) 06/03/21 05:28 Troponin T 0.032 ng/mL (0.00-0.029) H 06/02/21 16:41 Total Protein 6.6 g/dL (6.3-8.2) 06/03/21 05:28 Albumin 3.2 g/dL (3.9-5) L 06/03/21 05:28 Albumin/Globulin Ratio 0.9 % 06/03/21 05:28 Urine Color Yellow (Yellow) 06/02/21 Unknown Urine Turbidity Cloudy (Clear) 06/02/21 Unknown Urine pH 6.0 (5.0-7.0) 06/02/21 Unknown Ur Specific [place] 1.010 (1.003-1.030) 06/02/21 Unknown Urine Protein 100 mg/dl mg/dL (Negative) 06/02/21 Unknown Urine Glucose (UA) Neg mg/dL (Negative) 06/02/21 Unknown Urine Ketones Neg mg/dL (Negative) 06/02/21 Unknown Urine Blood Lg (Negative) 06/02/21 Unknown Urine Nitrite Neg (Negative) 06/02/21 Unknown Urine Bilirubin Neg (Negative) 06/02/21 Unknown Urine Urobilinogen < 2.0 mg/dL (<2.0) 06/02/21 Unknown Ur Leukocyte Esterase Lg (Negative) 06/02/21 Unknown Urine WBC (Auto) > 182.0 /HPF (0.0-6.0) H 06/02/21 Unknown Urine RBC (Auto) > 182.0 /HPF (0.0-6.0) 06/02/21 Unknown U Epithel Cells (Auto) 24.0 /HPF (0-13.0) H 06/02/21 Unknown Urine Bacteria (Auto) 1+ /HPF (Negative) 06/02/21 Unknown Urine Mucus Few /HPF 06/02/21 Unknown Microbiology: Microbiology 06/02/21 16:41 Peripheral/Venous Blood Culture - Preliminary NO GROWTH AFTER 48 HOURS 06/02/21 16:54 Peripheral/Venous Blood Culture - Preliminary NO GROWTH AFTER 48 HOURS 06/02/21 19:00 Urine,Clean Catch Urine Culture - Preliminary NO GROWTH AFTER 24 HOURS Shah/IV: Voiding Method External Female Catheter Active Medications - Current Medications Current Medications: Generic Name Dose Route Start Last Admin Trade Name Freq PRN Reason Stop Dose Admin Acetaminophen 650 mg 06/02/21 22:53 06/04/21 23:16 Acetaminophen 325 Mg Tab PO 650 mg Q4H PRN Administration Pain MILD(1-3)/Fever >100.5/AARON Amlodipine Besylate 5 mg 06/05/21 08:00 Amlodipine 5 Mg Tab PO QDAY [facility] Atorvastatin Calcium 20 mg 06/03/21 10:00 06/04/21 11:00 Atorvastatin 20 Mg Tab PO Not Given QDAY [facility] Baclofen 20 mg 06/03/21 10:00 06/04/21 11:00 Baclofen 10 Mg Tab PO Not Given DAILY [facility] Cholecalciferol 1,000 unit 06/03/21 10:00 06/04/21 11:57 Cholecalciferol (Vit D3) 1000 Unit (25 Mcg) Tab PO Not Given DAILY [facility] Famotidine 20 mg 06/03/21 10:00 06/04/21 18:58 Famotidine 20 Mg/2 Ml Inj IV Not Given QAM [facility] Heparin Sodium (Porcine) 5,000 unit 06/02/21 23:00 06/04/21 23:15 Heparin 5,000 Unit/1 Ml Vial SUB-Q 5,000 unit Q12HR MATT Administration Hydralazine HCl 10 mg 06/04/21 23:40 06/05/21 06:51 Hydralazine 20 Mg/1 Ml Inj IV 10 mg Q6H PRN Administration Blood Pressure Sodium Chloride 1,000 mls @ 75 mls/hr 06/02/21 23:00 06/05/21 06:51 Nacl 0.9% 1000 Ml IV 75 mls/hr DIRECT MATT Administration Cefepime HCl 1 gm in 100 mls @ 200 mls/hr 06/03/21 06:00 06/05/21 06:51 Cefepime/Ns 1 Gm/100 Ml IV 06/09/21 18:29 200 mls/hr Q12H MATT Administration Protocol Ibuprofen 600 mg 06/04/21 23:42 Ibuprofen 600 Mg Tab PO Q6H PRN Pain, Mild (1-3) Metoclopramide HCl 5 mg 06/02/21 22:53 Metoclopramide 10 Mg/2 Ml Inj IV Q6H PRN Nausea And Vomiting Metoprolol Tartrate 50 mg 06/02/21 23:00 06/04/21 19:03 Metoprolol Tartrate 50 Mg Tab PO 50 mg BID@0800,1700 MATT Administration Morphine Sulfate 4 mg 06/02/21 22:53 Morphine 4 Mg/1 Ml Inj IV Q4H PRN Pain , Severe (7-10) Multivitamins 1 each 06/03/21 10:00 06/04/21 10:58 Multivitamins ,Therapeutic Tab PO Not Given DAILY [facility] Ondansetron HCl 4 mg 06/02/21 22:53 Ondansetron 4 Mg/2 Ml Inj IV Q8H PRN Nausea And Vomiting Oxycodone/Acetaminophen 1 tab 06/02/21 22:53 Oxycodone /Acetaminophen 5-325mg Tab PO Q6H PRN Pain, Moderate (4-6) Sodium Chloride 10 ml 06/03/21 10:00 06/04/21 23:16 Sodium Chloride 0.9% 10 Ml Flush Syringe IV 10 ml BID MATT Administration Sodium Chloride 10 ml 06/02/21 22:53 Sodium Chloride 0.9% 10 Ml Flush Syringe IV PRN PRN LINE FLUSH Nutrition/Malnutrition Assess - Dietary Evaluation Nutrition/Malnutrition Findings: Nutrition Notes Start: 06/04/21 17:08 Freq: Status: Active Protocol: Document 06/04/21 17:08 BRIANDA (Rec: 06/04/21 17:29 BRIANDA [email or web address]) Nutrition Notes 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 Current Diet Cardiac Diet (since 06/03), D Supplements (from 06/05). Labs/Tests 06/04: Na 133, CO2 15, BUN 20, Crea 1.4, Ca 8.1. Pertinent Medications 06/04: Vit D3, Multivitamins, others nutritionally unremarkable. Height 5 ft 5 in Weight 56.5 kg [place] Body Weight (kg) 56.81 BMI 20.7 Weight Status Appropriate Subjective/Other Information RD consult for risk of malnutrition; MST = 3. Percent of energy/protein needs met: Prescribed Cardiac Diet provides for energy/protein needs (2,230 Kcal/85 g) during LOS. Dietary Supplements TID will compensate for poor oral intake with 1,050 Kcal and 60 g of protein. Burn Absent Trauma Absent GI Symptoms None Food Allergy No Skin Integrity/Comment Clear, warm, dry. Current % PO Poor (25-49%) Minimum of two criteria No #1 Nutrition Diagnosis Inadequate protein-energy intake Etiology Pt's ongoing condition. As Evidenced by Signs and Symptoms Poor oral intake, acording to ADL notes, abnormal chemistry lab values. Is patient on ventilator? No Is Patient Ambulatory and/or Out of Bed Yes REE-([facility]-ambulatory/OOB) [ [id number] [id number]] Kcal/Kg value to use for calculation 35 Approximate Energy Requirements Using 1978 kcal/Kg Calculation Used for Recommendations Kcal/kg Additional Notes Protein: 1.2-1.5 g/Kg; 68-86 g /day (from IBW+critical care). Fluids: 1 ml/Kcal, or as per MD. Nutrition Intervention Change Diet Order: Continue Cardiac Diet. Add Supplement/Snack (indicate name/kcal 8 fl oz Ensure Enlive; TID. /protein ) Provides kCal: 1,050 Provides Protein (gm) 60 Goal #1 Maintain body weight within +/ -3% of current BWt during LOS. Goal #2 Reach and maintain acceptable chemistry lab values during LOS. Follow-Up By: 06/11/21 Additional Comments Continue monitoring food tolerance, %PO intake of meals , Hydration, and BM.
[2021-06-05] MEDS: BACLOFEN 10 MG TAB PO SCH (10:44)
[2021-06-05] MEDS: amLODIPine 5 MG TAB PO SCH (10:44)
[2021-06-05] MEDS: MULTIVITAMINS ,THERAPEUTIC TAB PO SCH (10:44)
[2021-06-05] MEDS: HEPARIN 5,000 UNIT/1 ML VIAL SUB-Q SCH ×2 (10:45→22:41)
[2021-06-05] MEDS: ACETAMINOPHEN 325 MG TAB PO PRN (10:45)
[2021-06-05] MEDS: CHOLECALCIFEROL (VIT D3) 1000 UNIT (25 mcg) TAB PO SCH (10:45)
[2021-06-05] MEDS: METOPROLOL TARTRATE 50 MG TAB PO SCH ×2 (10:52→18:20)
--- NOTE | 2021-06-05 10:56 | Electrocardiograph Report ---
[facility] Test Date: 2021-06-02 Test Time: 15:04:35 Pat Name: KEVIN WORLEY Department: Room: A377 1 Gender: F [employer] Professor: ANAMARIA : 1955 Requested By: ERMELINDA BARRETT Order Number: [id number] Reading MD: Maryjo Cabrera Measurements Intervals [place] Rate: 89 P: 77 IA: 130 QRS: -17 QRSD: 69 T: 19 QT: 380 QTc: 462 Interpretive Statements Sinus rhythm Low voltage QRS Compared to ECG 05/27/2021 14:30:28 No significant change Electronically Signed On 06-05-2021 10:55:58 EST by Maryjo Cabrera
[2021-06-05] MEDS: FAMOTIDINE 20 MG TAB PO SCH (13:22)
[2021-06-06] MEDS: CEFEPIME/NS 1 GM/100 ML 1 GM/100 ML BAG IV SCH (05:24)
[2021-06-06] MEDS: HEPARIN 5,000 UNIT/1 ML VIAL SUB-Q SCH (10:00)
[2021-06-06] MEDS: BACLOFEN 10 MG TAB PO SCH (10:11)
[2021-06-06] MEDS: amLODIPine 5 MG TAB PO SCH (10:11)
[2021-06-06] MEDS: METOPROLOL TARTRATE 50 MG TAB PO SCH (10:12)
[2021-06-06] MEDS: FAMOTIDINE 20 MG TAB PO SCH (10:12)
[2021-06-06] MEDS: MULTIVITAMINS ,THERAPEUTIC TAB PO SCH (10:13)
[2021-06-06] MEDS: CHOLECALCIFEROL (VIT D3) 1000 UNIT (25 mcg) TAB PO SCH (10:13)
--- NOTE | 2021-06-06 10:37 | Discharge Summary ---
Providers - Providers Date of Admission: 06/02/21 19:56 Date of discharge: 06/06/21 Attending physician: CADENCE FISH MD 06/03/21 07:19 Physical Therapy Evaluation and Treat [CONS] Routine Comment: Evaluation and recommendations Reason For Exam: Severe debility and contractures 06/05/21 13:36 Physical Therapy Evaluation and Treat [CONS] Routine Comment: Reason For Exam: re-consult PT eval for home health PT Primary care physician: [facility] Hospitalization Reason for admission: Acute metabolic encephalopathy Condition: Stable Hospital course: History of present illness: 66-year-old female who looks fairly cachectic sent from half-way for altered mental status. Patient is normally conversant. But over the last 36 hours patient has become more lethargic and decreased responsiveness. No fever or chills. During my examination patient is alert to some extent and able to say yes or no. Could not elaborate on any history. Patient appears contracted. No chest pain or fever or chills. Patient is apparently vaccinated. With Covid Hospital course to date: 06/03/2021: We will follow-up blood and urine cultures. Continue IV antibiotics. Patient appears to be back to baseline with mental status. Patient is A & O x3. Follow-up CBC and BMP in a.m. Check renal ultrasound. 06/04/2021: Renal ultrasound reveals simple cyst of the bilateral kidneys with minimal calyceal prominence bilaterally without definite evidence of hydronephrosis. Otherwise unremarkable renal ultrasound. Blood culture with no growth x24 hours. Continue to follow blood and urine culture. Continue IV fluid hydration and monitor creatinine. Patient appeared to have baseline creatinine of 1.1 in March 2020. Patient has seen Dr. Lyons on her previous hospitalization. We will reconsult if no continued improvement in creatinine. 06/05/2021: Mental status significantly improved. Will need PT re-eval for home health care as home hospice was initially discussed over weekend. Patient does not appear to be hospice appropriate. D/w daughter this AM who agreed with home health plan. Also d/w CM regarding need for home health set up. Plan for d/c tomorrow. 06/06/21: Mental status remains improved. Plan currently to discharge home with home health care service. D/w daughter at bedside who is agreeable. D/w CM who is working with home health service for disease and medication management. Per PT patient is completely dependent and has poor rehab potential and thus does not meet criteria for home health PT services. Patient and patient daughter advised to follow up outpatient with the patient's primary care physician as soon as possible. Patient has completed 3 total days cefepime therapy. Will d/c home with Keflex 500 mg every 12 hours for additional 4 days to complete total 7 day course of antibiotics. She will also be discharged home with prescriptions for amlodipine 5 mg p.o. daily, atorvastatin 20 mg p.o. daily, metoprolol 50 mg p.o. twice daily. All of these medications were transmitted to patient's pharmacy. Assessment and plan #Sepsis. Patient meets criteria given the altered mentation, fever and diagnosis of UTI - cefepime IV, has completed 3 day total therapy. -fever now resolved, VSS #UTI - management as above - UCx NGTD - BCx NGTD #Toxic metabolic encephalopathy (resolved) - likely secondary to UTI #Hyponatremia #Hypertension - metoprolol 50 mg po bid - amlodipine 5 mg po daily #Hyperlipidemia #Vitamin D deficiency. #Acute kidney injury likely secondary to vasomotor nephropathy +/- ATN/sepsis. - improved, Cr downtrending #Advance care planning Disease education conducted, care plan discussed, diagnoses discussed, prognosis discussed, patient is full code, patient acknowledges understanding and agree with care plan, +30 minutes. Disposition: 06 HOME HEALTH CARE SERVICE Final Discharge Diagnosis (Prints w/discharge instructions): Urinary tract infection Time spent for discharge: 35 Core Measure Documentation - Palliative Care Palliative Care/ Comfort Measures: Not Applicable - Core Measures Any of the following diagnoses?: none Exam - Physical Exam Narrative exam: Physical Exam: VITAL SIGNS: Reviewed. GENERAL: The patient appears normally developed, Vital signs as documented. HEAD: No signs of head trauma. EYES: Pupils are equal. Extraocular motions intact. EARS: Hearing grossly intact. MOUTH: Oropharynx is normal. NECK: No adenopathy, no JVD. CHEST: Chest with clear breath sounds bilaterally. No wheezes, rales, or rhonchi. CARDIAC: Regular rate and rhythm. S1 and S2, without murmurs, gallops, or rubs. VASCULAR: No Edema. Peripheral pulses normal and equal in all extremities. ABDOMEN: Soft, non tender and non distended. No rebound or guarding, and no masses palpated. Bowel Sounds normal. MUSCULOSKELETAL: Good range of motion of all major joints. Extremities without clubbing, cyanosis or edema. NEUROLOGIC EXAM: Alert and oriented x 4. no focal sensory or strength deficits. PSYCHIATRIC: Mood normal. SKIN: detail exam as documented in skin assessment - Constitutional Vitals: Temp Pulse Resp BP Pulse Ox 99.2 F 72 18 145/70 97 06/05/21 23:04 06/06/21 10:12 06/05/21 23:04 06/06/21 10:12 06/06/21 05:26 Plan Follow up with: PRIMARY CARE, [Primary Care Provider] - 3-5 Days Prescriptions: amLODIPine 5 mg PO QDAY 30 Days #30 tablet cephALEXin [Keflex] 500 mg PO Q12HR 4 Days #8 cap AtorvaSTATin [Lipitor] 20 mg PO QDAY 30 Days #30 tablet Metoprolol [Lopressor TAB] 50 mg PO BID@0800,1700 30 Days #60 tablet
[2021-06-06] MEDS: ACETAMINOPHEN 325 MG TAB PO PRN (15:29)
[2021-06-06 15:52] VITALS: BP 148/73
== END 2021-06-06 15:45 | disposition home health service (06) | DRG 871 ==
LOC: ED 14:43 → 3A 19:56
PROVIDERS: ADMIT Internal Medicine; ATTEND Internal Medicine
DX: A41.9 Sepsis, unspecified organism (principal); G92.8 Other toxic encephalopathy; N17.0 Acute kidney failure with tubular necrosis; E87.1 Hypo-osmolality and hyponatremia; N30.00 Acute cystitis without hematuria; E55.9 Vitamin D deficiency, unspecified; I10 Essential (primary) hypertension; E11.9 Type 2 diabetes mellitus without complications; F03.90 Unspecified dementia, unspecified severity, without behavioral disturbance, psychotic disturbance, mood disturbance, and anxiety; E78.2 Mixed hyperlipidemia; E86.0 Dehydration; Z88.2 Allergy status to sulfonamides; Z87.891 Personal history of nicotine dependence; Z79.84 Long term (current) use of oral hypoglycemic drugs
CPT/HCPCS: 36415; 71045; 76770; 80048; 80053; 81001; 82140; 82962; 84484; 85025; 87040; 87086; 93005; G0378; J3490; Q0162; J0360; J0692; J1644; J7030

== ENCOUNTER 2021-08-15 09:43 | Emergency (ER) | payer MEDICARE, OTHER ==
--- NOTE | 2021-08-15 10:38 | Emergency Department Report ---
ED General Adult HPI - General Chief complaint: Urogenital-Female Stated complaint: vaginal bleeding Time Seen by Provider: 08/15/21 10:19 Source: patient, family, EMS ( EMS documentation not available at time of chart dictation ), RN notes reviewed, old records reviewed Mode of arrival: Stretcher Limitations: Physical Limitation - History of Present Illness Initial comments: The patient was evaluated in the emergency department for symptoms described in the history of present illness. He/she was evaluated in the context of the global COVID-19 pandemic, which necessitated consideration that the patient might be at risk for infection with the virus that causes COVID-19. Institutional protocols and algorithms that pertain to the evaluation of pa tients at risk for COVID-19 are in a state of rapid change based on information released by regulatory bodies including the CDC and federal and state organizations. These policies and algorithms were followed during the patient's care in the emergency department. Please note that these policies, procedures and recommendations changed on a rapid basis. History obtained from speaking to patient, and by speaking to her daughter, Ms. Zee Hyde; [phone] Past medical history: Urinary tract infection, sacral wound, contracture, hypertension Primary CARE doctor: [facility] The patient is a 66-year-old female. She presents to the ER today with a complaint of painless hematuria. This has been going on for a day or so. As per her daughter, she was diagnosed with a urinary tract infection as an outpatient, and started on Macrobid. Patient herself denies headache, neck pain, chest pain, abdominal pain, shortness of breath, hematemesis, bright red blood per rectum, dysuria. Patient and daughter state that the patient herself is not taking systemic anticoagulation. In the emergency room, the patient was found to have hematuria. Shah catheter was placed, bladder irrigation initiated, and switched over to three-way catheter with Boland drip/continuous bladder irrigation. This resolved the patient's symptoms -: Gradual, days(s) Severity scale (0 -10): 0 Consistency: constant Improves with: none Worsens with: none Associated Symptoms: denies other symptoms - Related Data Home Medications Medication Instructions Recorded Confirmed Last Taken metFORMIN [Glucophage] 500 mg PO QDAY 05/28/21 06/03/21 06/01/21 Previous Rx's Medication Instructions Recorded Last Taken Type AtorvaSTATin [Lipitor] 20 mg PO QDAY 30 Days #30 tablet 06/06/21 Unknown Rx Metoprolol [Lopressor TAB] 50 mg PO BID@0800,1700 30 Days #60 06/06/21 Unknown Rx tablet amLODIPine 5 mg PO QDAY 30 Days #30 tablet 06/06/21 Unknown Rx cephALEXin [Keflex] 500 mg PO Q12HR 4 Days #8 cap 06/06/21 Unknown Rx Allergies Allergy/AdvReac Type Severity Reaction Status Date / Time Sulfa (Sulfonamide Allergy Unknown Verified 08/15/21 09:49 Antibiotics) ED Review of Systems ROS: Stated complaint: vaginal bleeding Other details as noted in HPI Constitutional: denies: fever Eyes: denies: eye discharge ENT: denies: epistaxis Respiratory: denies: cough Cardiovascular: denies: chest pain Gastrointestinal: denies: abdominal pain, nausea, vomiting, hematemesis, melena, hematochezia Genitourinary: hematuria Musculoskeletal: denies: back pain Neurological: weakness (Chronic weakness) ED Past Medical Hx - Past Medical History Previous Medical History?: Yes Hx Hypertension: Yes Hx Diabetes: Yes Hx Dementia: Yes Additional medical history: DEBILITY- IN WHEELCHAIR P HAVING 2 BACK SURGERIES; THIN/FRAIL. cannot be obtained for the patient secondary to altered mental status - Surgical History Additional Surgical History: 5 back surgeries and left ankle - Social History Smoking Status: Unknown if ever smoked - Medications Home Medications: Home Medications Medication Instructions Recorded Confirmed Last Taken Type metFORMIN [Glucophage] 500 mg PO QDAY 05/28/21 06/03/21 06/01/21 History AtorvaSTATin [Lipitor] 20 mg PO QDAY 30 Days #30 tablet 06/06/21 Unknown Rx Metoprolol [Lopressor TAB] 50 mg PO BID@0800,1700 30 Days #60 06/06/21 Unknown Rx tablet amLODIPine 5 mg PO QDAY 30 Days #30 tablet 06/06/21 Unknown Rx cephALEXin [Keflex] 500 mg PO Q12HR 4 Days #8 cap 06/06/21 Unknown Rx ED Physical Exam - General Limitations: Physical Limitation General appearance: alert, in no apparent distress - Head Head exam: Present: atraumatic, normocephalic - Eye Eye exam: Present: normal appearance, EOMI. Absent: nystagmus - ENT ENT exam: Present: normal exam, normal orophraynx, mucous membranes moist, normal external ear exam - Neck Neck exam: Present: normal inspection, full ROM. Absent: tenderness, meningismus - Respiratory Respiratory exam: Present: normal lung sounds bilaterally. Absent: respiratory distress, wheezes, rales, rhonchi, stridor, decreased breath sounds - Cardiovascular Cardiovascular Exam: Present: regular rate, normal rhythm, normal heart sounds. Absent: bradycardia, tachycardia, irregular rhythm, systolic murmur, diastolic murmur, rubs, gallop - GI/Abdominal GI/Abdominal exam: Present: soft. Absent: distended, tenderness, guarding, rebound, rigid, pulsatile mass - Rectal Rectal exam: Present: normal rectal tone, heme (-) stool, other (Chaperoned by Kenna Traylor). Absent: normal inspection (Chronic appearing sacral wound is noted. There is no evidence of superinfection), heme (+) stool, black stool, bloody stool - External exam: Present: normal external exam, other (Chaperoned by nurse Kenna Vasquez). Absent: erythema, swelling, lesions, lacerations, ecchymosis, bleeding - Extremities Exam Extremities exam: Present: full ROM (Bilateral upper extremities), other (2+ pulses noted in the bilateral upper and lower extremities. There is no palpable cord. negative Homans sign. Muscular compartments are soft. The pelvis is stable.). Absent: normal inspection (Contractures noted to the bilateral lower extremity), calf tenderness - Back Exam Back exam: Present: normal inspection. Absent: tenderness, CVA tenderness (R), CVA tenderness (L), paraspinal tenderness, vertebral tenderness - Neurological Exam Neurological exam: Present: alert, oriented X3, other (There is no facial droop. The tongue is midline. 5/5 strength bilateral upper extremities. Sensation is intact to light touch in 4 extremities. Chronic contractures noted in the bilateral lower extremities) - Psychiatric Psychiatric exam: Present: flat affect - Skin Skin exam: Present: warm, other (Chronic pressure ulcer noted on the sacrum) ED Course Vital Signs 08/15/21 08/15/21 08/15/21 09:45 10:06 10:16 Temperature 98.7 F Pulse Rate 85 72 72 Respiratory 16 18 14 Rate Blood Pressure 141/66 Blood Pressure 158/84 [Left] O2 Sat by Pulse 95 98 98 Oximetry 08/15/21 08/15/21 08/15/21 10:30 10:46 11:00 Temperature Pulse Rate 68 81 71 Respiratory 12 9 L 13 Rate Blood Pressure 141/66 141/66 139/65 Blood Pressure [Left] O2 Sat by Pulse 99 99 99 Oximetry 08/15/21 08/15/21 08/15/21 11:16 11:30 11:46 Temperature Pulse Rate 67 67 69 Respiratory 12 11 L 13 Rate Blood Pressure 139/65 139/65 120/61 Blood Pressure [Left] O2 Sat by Pulse 99 100 97 Oximetry ED Medical Decision Making - Lab Data Result diagrams: 08/15/21 10:54 08/15/21 10:54 Vital Signs 08/15/21 08/15/21 08/15/21 09:45 10:06 10:16 Temperature 98.7 F Pulse Rate 85 72 72 Respiratory 16 18 14 Rate Blood Pressure 141/66 Blood Pressure 158/84 [Left] O2 Sat by Pulse 95 98 98 Oximetry 08/15/21 08/15/21 08/15/21 10:30 10:46 11:00 Temperature Pulse Rate 68 81 71 Respiratory 12 9 L 13 Rate Blood Pressure 141/66 141/66 139/65 Blood Pressure [Left] O2 Sat by Pulse 99 99 99 Oximetry 08/15/21 08/15/21 08/15/21 11:16 11:30 11:46 Temperature Pulse Rate 67 67 69 Respiratory 12 11 L 13 Rate Blood Pressure 139/65 139/65 120/61 Blood Pressure [Left] O2 Sat by Pulse 99 100 97 Oximetry Lab Results 08/15/21 08/15/21 08/15/21 Range/Units 10:54 10:54 10:54 WBC 5.3 (4.5-11.0) K/mm3 RBC 2.74 L (3.65-5.03) M/mm3 Hgb 9.0 L (10.1-14.3) gm/dl Hct 26.9 L (30.3-42.9) % MCV 98 H (79-97) fl MCH 33 H (28-32) pg MCHC 33 (30-34) % RDW 13.6 (13.2-15.2) % Plt Count 341 (140-440) K/mm3 Lymph % (Auto) 29.7 (13.4-35.0) % [place] % (Auto) 12.3 H (0.0-7.3) % Eos % (Auto) 3.7 (0.0-4.3) % Baso % (Auto) 0.7 (0.0-1.8) % Lymph # (Auto) 1.6 (1.2-5.4) K/mm3 [place] # (Auto) 0.6 (0.0-0.8) K/mm3 Eos # (Auto) 0.2 (0.0-0.4) K/mm3 Baso # (Auto) 0.0 (0.0-0.1) K/mm3 Seg Neutrophils % 53.6 (40.0-70.0) % Seg Neutrophils # 2.8 (1.8-7.7) K/mm3 PT 12.5 (12.2-14.9) Sec. INR 0.84 L (0.87-1.13) APTT 30.4 (24.2-36.6) Sec. Sodium 126 L (137-145) mmol/L Potassium 4.2 (3.6-5.0) mmol/L Chloride 92.8 L (98-107) mmol/L Carbon Dioxide 21 L (22-30) mmol/L Anion Gap 16 mmol/L BUN 12 (7-17) mg/dL Creatinine 1.2 (0.6-1.2) mg/dL Estimated GFR 55 ml/min BUN/Creatinine Ratio 10 % Glucose 356 H (65-100) mg/dL Calcium 8.6 (8.4-10.2) mg/dL Magnesium (1.7-2.3) mg/dL Total Creatine Kinase (30-135) units/L Urine Color (Yellow) Urine Turbidity (Clear) Urine pH (5.0-7.0) Ur Specific [place] (1.003-1.030) Urine Protein (Negative) mg/dL Urine Glucose (UA) (Negative) mg/dL Urine Ketones (Negative) mg/dL Urine Blood (Negative) Urine Nitrite (Negative) Urine Bilirubin (Negative) Urine Urobilinogen (<2.0) mg/dL Ur Leukocyte Esterase (Negative) Urine WBC (Auto) (0.0-6.0) /HPF Urine RBC (Auto) (0.0-6.0) /HPF U Epithel Cells (Auto) (0-13.0) /HPF Blood Type Antibody Screen 08/15/21 08/15/21 08/15/21 Range/Units 10:54 10:54 Unknown WBC (4.5-11.0) K/mm3 RBC (3.65-5.03) M/mm3 Hgb (10.1-14.3) gm/dl Hct (30.3-42.9) % MCV (79-97) fl MCH (28-32) pg MCHC (30-34) % RDW (13.2-15.2) % Plt Count (140-440) K/mm3 Lymph % (Auto) (13.4-35.0) % [place] % (Auto) (0.0-7.3) % Eos % (Auto) (0.0-4.3) % Baso % (Auto) (0.0-1.8) % Lymph # (Auto) (1.2-5.4) K/mm3 [place] # (Auto) (0.0-0.8) K/mm3 Eos # (Auto) (0.0-0.4) K/mm3 Baso # (Auto) (0.0-0.1) K/mm3 Seg Neutrophils % (40.0-70.0) % Seg Neutrophils # (1.8-7.7) K/mm3 PT (12.2-14.9) Sec. INR (0.87-1.13) APTT (24.2-36.6) Sec. Sodium (137-145) mmol/L Potassium (3.6-5.0) mmol/L Chloride (98-107) mmol/L Carbon Dioxide (22-30) mmol/L Anion Gap mmol/L BUN (7-17) mg/dL Creatinine (0.6-1.2) mg/dL Estimated GFR ml/min BUN/Creatinine Ratio % Glucose (65-100) mg/dL Calcium (8.4-10.2) mg/dL Magnesium 1.80 (1.7-2.3) mg/dL Total Creatine Kinase 74 (30-135) units/L Urine Color Red (Yellow) Urine Turbidity Slightly-cloudy (Clear) Urine pH 7.0 (5.0-7.0) Ur Specific [place] 1.012 (1.003-1.030) Urine Protein 100 mg/dl (Negative) mg/dL Urine Glucose (UA) 150 (Negative) mg/dL Urine Ketones Neg (Negative) mg/dL Urine Blood Mod (Negative) Urine Nitrite Neg (Negative) Urine Bilirubin Neg (Negative) Urine Urobilinogen < 2.0 (<2.0) mg/dL Ur Leukocyte Esterase Sm (Negative) Urine WBC (Auto) 140.0 H (0.0-6.0) /HPF Urine RBC (Auto) > 182.0 (0.0-6.0) /HPF U Epithel Cells (Auto) 25.0 H (0-13.0) /HPF Blood Type O POSITIVE Antibody Screen Negative - Medical Decision Making Differential diagnosis, including but not limited to: Urinary tract infection, malignancy, chronic anemia, contractures, pressure ulcer, hematuria Assessment and plan: 66-year-old female, who is awake, alert, oriented and sober, presenting with a complaint of painless hematuria. She was presumptively diagnosed with a urinary tract infection as an outpatient, and started on Macrobid yesterday. Here in the emergency room, she is started on continuous bladder irrigation, and her hematuria has markedly cleared. Laboratory studies appear to be at baseline. Hyperglycemia associated without anion gap acidosis, she does have pseudohyponatremia. Contacted her daughter, Ms. Hyde, at the listed phone number, and I discussed the patient's history, physical, laboratory studies and clinical impression. Have strongly encouraged the patient started to follow-up with an outpatient urologist to exclude cancer, tumor, malignancy of the tract. Insulin is administered for hyperglycemia, patient can follow-up with an outpatient primary care doctor for her chronic anemia, as well as hyperglycemia. No vaginal bleeding noted on my exam, no rectal bleeding noted on my examination. Patient observed in this ER for hours without clinical decompensation Critical care attestation.: If time is entered above; I have spent that time in minutes in the direct care of this critically ill patient, excluding procedure time. ED Disposition Clinical Impression: Hematuria, Hyperglycemia, Pressure ulcer Disposition: 01 HOME / SELF CARE / HOMELESS Is pt being admited?: No Does the pt Need Aspirin: No Condition: Good Additional Instructions: Please continue current outpatient medications, including Macrobid antibiotic that was reportedly prescribed yesterday. Cultures were sent today, and results will be available in the next 3 to 5 days. Please have your primary care doctor contact the medical records department to obtain culture results. Recommend follow-up with an outpatient urologist for history of bloody urine to have the patient evaluated for genitourinary cancer, tumor, malignancy. Recommend follow-up with an outpatient urologist within the next 2 to 4 weeks. Minimize/avoid consumption of Motrin, ibuprofen, Naprosyn, Aleve, and do not take blood thinning medications. Follow-up with your primary care doctor for chronic anemia and chronic pressure wound. Recommend follow-up within the next month. Please return to the emergency room right away with new pain, worsened pain, migration of pain, projectile vomiting, change in mental status, confusion, inability tolerate liquid feeds, new, worsened or different symptoms not present on the initial emergency room evaluation Referrals: [facility] [Provider Group] - 3-5 Days
[2021-08-15] MEDS ORDERED: SODIUM CHLORIDE 0.9% IRR 500 ML BOTTLE IR ONE (10:43)
[2021-08-15 11:15] LABS: Basophils % (Auto) 0.7 % (0.0-1.8); Eosinophils # (Auto) 0.2 K/mm3 (0.0-0.4); Eosinophils % (Auto) 3.7 % (0.0-4.3); Hematocrit 26.9 % (30.3-42.9); Lymphocytes # (Auto) 1.6 K/mm3 (1.2-5.4); Lymphocytes % (Auto) 29.7 % (13.4-35.0); Mean Corpuscular HGB Conc 33 % (30-34); Mean Corpuscular Volume 98 fl (79-97); Monocytes # (Auto) 0.6 K/mm3 (0.0-0.8); Monocytes % (Auto) 12.3 % (0.0-7.3); Platelet Count 341 K/mm3 (140-440); Red Blood Count 2.74 M/mm3 (3.65-5.03); Red Cell Distribution Width 13.6 % (13.2-15.2)
[2021-08-15 11:37] LABS: Partial Thromboplastin Time 30.4 Sec. (24.2-36.6)
[2021-08-15 11:40] LABS: INR 0.84 (0.87-1.13)
[2021-08-15 11:41] LABS: Bilirubin,Urine NEG (Negative); Blood,Urine MOD (Negative); Color,Urine Red (Yellow); Urobilinogen,Urine < 2.0 mg/dL (<2.0)
[2021-08-15 11:48] LABS: RBC,Urine > 182.0 /HPF (0.0-6.0)
[2021-08-15 11:54] LABS: Calcium 8.6 mg/dL (8.4-10.2)
[2021-08-15] MEDS ORDERED: INSULIN REGULAR, HUMAN 100 UNITS/1 ML IV ONE (12:02)
[2021-08-15] MEDS ORDERED: SODIUM CHLORIDE 0.9% IRRIG SOLN 2000 ML IR SCH (13:00)
[2021-08-15 18:22] VITALS: BP 140/77
== END 2021-08-15 18:27 | disposition home or self-care (01) ==
LOC: ED 09:43
DX: R31.9 Hematuria, unspecified (principal); L89.899 Pressure ulcer of other site, unspecified stage; I10 Essential (primary) hypertension; F03.90 Unspecified dementia, unspecified severity, without behavioral disturbance, psychotic disturbance, mood disturbance, and anxiety; Z79.899 Other long term (current) drug therapy; Z98.890 Other specified postprocedural states; E11.9 Type 2 diabetes mellitus without complications; Z88.2 Allergy status to sulfonamides
CPT/HCPCS: 36415; 80048; 81001; 82550; 82962; 83735; 85025; 85610; 85730; 86850; 86900; 86901; 87086; 96374; 99284; Q9967; J1815